=== PATIENT | female | born 1955 | race Caucasian/White ===

== ENCOUNTER → 2020-03-23 14:44 | Outpatient (CLI) | payer OTHER, SELFPAY ==
--- NOTE | ~2020-03-23 | MM_ITS ---
EXAMINATION: MM screening ivelisse BI w johana HISTORY: Screening mammogram TECHNIQUE: Craniocaudal and mediolateral oblique 3-D tomosynthesis images were obtained and synthetic 2-D images were generated. CAD analysis was submitted and interpreted. COMPARISON: Comparison to multiple prior studies sequentially, with oldest reviewed study dated 06/06. BREAST PARENCHYMAL COMPOSITION: There are scattered areas of fibroglandular density. FINDINGS: The right breast is stable without evidence for malignancy. There is a developing focal asy mmetry laterally in the left breast on CC view. IMPRESSION: 1. Developing left breast asymmetry. 2. Additional mammographic views and possible breast ultrasound are recommended. BI-RADS Category 0: Incomplete: Needs additional imaging evaluation. Reviewed, dictated and finalized at location A. IMPRESSION: 1. Developing left breast asymmetry. 2. Additional mammographic views and possible breast ultrasound are recommended . BI-RADS Category 0: Incomplete: Needs additional imaging evaluation.
== END ==
PROVIDERS: PCP Family Medicine; Visit Provider Family Medicine
DX: Z12.31 Encounter for screening mammogram for malignant neoplasm of breast (principal); R92.8 Other abnormal and inconclusive findings on diagnostic imaging of breast
CPT/HCPCS: 77063; 77067

== ENCOUNTER → 2020-04-04 09:28 | Outpatient (CLI) | payer OTHER, SELFPAY ==
--- NOTE | ~2020-04-04 | MMUS_ITS ---
EXAMINATION: MM diagnostic mammo unilat LT, US breast LT limited HISTORY: Left breast asymmetry on screening mammogram TECHNIQUE: Additional 3-D tomosynthesis images of the left breast were performed and synthetic 2-D im ages were generated. CAD analysis was submitted and interpreted. High resolution limited left breast ultrasound was performed. COMPARISON: 03/23/2020, 11/25/2018, 08/20/2017, 06/17/2016 FINDINGS: MAMMOGRAPHIC FINDINGS: Asymmetry in the posterior third of the outer left breast seen on recent screening mammogram diminish es with spot compression. No definite persistent mass, calcification, or architectural distortion are identified. There are benign left breast calcifications. ULTRASOUND: There is a 5 mm x 3 mm oval, circumscribed, parallel, hypoechoic mass with no posterior features or i nternal vascularity at the 2:00 location 8 cm from the nipple with apparent central echogenicity. IMPRESSION: 1. Left breast mass with imaging features suggestive of an intramammary lymph node. 2. Recommend 6 month follow-up left diagnostic mammogram and ultrasound. BI-RADS category 3, probably benign findings. Reviewed, dictated and finalized at location A. IMPRESSION: 1. Left breast mass with imaging features suggestive of an intramammary lymph n ode. 2. Recommend 6 month follow-up left diagnostic mammogram and ultrasound. BI-RADS category 3, probably benign findings.
== END ==
PROVIDERS: PCP Family Medicine; Visit Provider Family Medicine
DX: R92.8 Other abnormal and inconclusive findings on diagnostic imaging of breast (principal)
CPT/HCPCS: 76642; 77065

== ENCOUNTER → 2020-05-16 11:05 | Outpatient (CLI) | payer OTHER, SELFPAY ==
--- NOTE | ~2020-05-16 | US_ITS ---
EXAMINATION: US pelvic complete w TV EXAM DATE: 05/16/2020 11:33 INDICATION: Pain in pelvis. TECHNIQUE: Pelvic transabdominal and transvaginal sonogram was performed. There are multiple graysca le and Doppler images available for interpretation. There is no prior study for comparison. FINDINGS: Uterus measures 6.2 x 2.6 x 3.7 cm, is retroverted and morphologically normal. Endometria l stripe measures 2 mm, within normal limits. There is no free pelvic fluid. Right adnexa: The ovary measures 1.8 x 1.1 x 1.5 cm and is morphologically normal. Ovarian vascular f low confirmed. Left adnexa: The ovary is not identified. There is no adnexal mass. IMPRESSION: 1. Unremarkable pelvic ultrasound exam. Reviewed, dictated and finalized at location A.
== END ==
PROVIDERS: PCP Family Medicine; Visit Provider Family Medicine
DX: R10.2 Pelvic and perineal pain (principal)
CPT/HCPCS: 76830; 76856

== ENCOUNTER → 2020-05-26 13:41 | Outpatient (CLI) | payer OTHER, SELFPAY ==
--- NOTE | ~2020-05-26 | CT_ITS ---
EXAMINATION: CT abdomen pelvis w con INDICATION: Abdominal pain TECHNIQUE: Computed tomographic images of the abdomen and pelvis were obtained after the administrati on of 100 cc of Omnipaque 350 intravenous contrast. The dose-length product (DLP) was 459.62 mGy-cm. Automated exposure control and iterative reconstruction technique were employed. COMPARISON: None available FINDINGS: The heart size is normal. A 2 mm nodule of the right middle lobe likely reflects old granul omatous disease. Cysts of the liver measure up to 2.1 cm in the left hepatic lobe. The spleen, pancre as, gallbladder, and adrenal glands are normal. The kidneys are unremarkable. No pathologically enlar ged abdominal or pelvic lymph nodes are identified. There is no free intraperitoneal gas or evidence of bowel obstruction. A large volume of colonic stool is present. The appendix is normal. A small fat -containing umbilical hernia is noted. IMPRESSION: 1. Constipation. Reviewed, dictated and finalized at location A. IMPRESSION: 1. Constipation.
[2020-05-26 14:08] LABS: Estimated Glomerular Filt Rate > 60
== END ==
PROVIDERS: PCP Family Medicine; Visit Provider Family Medicine
DX: R10.9 Unspecified abdominal pain (principal); K59.00 Constipation, unspecified
CPT/HCPCS: 74177; Q9967

== ENCOUNTER → 2020-10-17 09:16 | Outpatient (CLI) | payer OTHER, SELFPAY ==
--- NOTE | ~2020-10-17 | MMUS_ITS ---
EXAMINATION: MM diagnostic ivelisse LT w johana, US breast LT limited HISTORY: Follow-up left breast mass TECHNIQUE: Additional 3-D tomosynthesis images of the left breast were performed and synthetic 2-D im ages were generated. CAD analysis was submitted and interpreted. High resolution left breast ultrasou nd was performed. COMPARISON: Comparison to multiple prior studies sequentially, with oldest reviewed study dated 06/17. BREAST PARENCHYMAL COMPOSITION: Breast composed of scattered areas of fibroglandular density. FINDINGS: MAMMOGRAPHIC FINDINGS: There are no suspicious masses, calcifications or architectural distortion in the left breast to sugg est malignancy. ULTRASOUND: Limited left breast ultrasound: At 2:00, 8 cm from the nipple, there is a 5 mm cyst which is stable. No suspicious masses to suggest malignancy. No internal vascularity or posterior features. IMPRESSION: 1. Stable benign-appearing minimally complicated 5 mm left breast cysts. No evidence for malignancy i n the left breast. 2. Routine yearly screening mammogram and regular clinical breast examination are recommended. BI-RADS Category 2: Benign finding(s). Reviewed, dictated and finalized at location A. [employer] IMPRESSION: 1. Stable benign-appearing minimally complicated 5 mm left breast cysts. No [place] dence for malignancy in the left breast. 2. Routine yearly screening mammogram and regular clinical breast examination a re recommended. BI-RADS Category 2: Benign finding(s).
== END ==
PROVIDERS: PCP Family Medicine; Visit Provider Family Medicine
DX: R92.8 Other abnormal and inconclusive findings on diagnostic imaging of breast (principal)
CPT/HCPCS: 76642; 77061; 77065; G0279

== ENCOUNTER → 2021-01-19 11:10 | Outpatient (CLI) | payer OTHER, SELFPAY ==
--- NOTE | ~2021-01-19 | DEXA_ITS ---
Bone Density Report Name: Mandi Key Age: 65 Sex: Female Ethnicity: White Date of : 1955 Indication: osteopenia; postmenopausal Referring Provider: VANGIE, IGNACIA Christensen Study: Bone densitometry was performed. Exam Date: January 19, 2021 Accession number: [id number] Bone Density: Region BMD T-score Z-score Classification AP Spine (L1-L4) 0.825 -2.0 -0.4 Osteopenia Femoral Neck (Left) 0.581 -2.4 -1.0 Osteopenia Total Hip (Left) 0.715 -1.9 -0.7 Osteopenia Femoral Neck (Right) 0.622 -2.0 -0.6 Osteopenia Total Hip (Right) 0.719 -1.8 -0.7 Osteopenia Total Hip Mean 0.717 -1.9 -0.7 Osteopenia World Health Organization criteria for BMD impression classify patients as: Normal (T-score at or above -1.0), Osteopenia (T-score between -1.0 and -2.5), or Osteoporosis (T-score at or below -2.5). 10-year Fracture Risk(1): Major Osteoporotic Fracture 12% Hip Fracture 2.1% Reported Risk Factors: [place] (), Neck BMD=0.581, BMI=26.5 (1) FRAX(R) Version 3.08. Fracture probability calculated for an untreated patient. Fracture probability may be lower if the patient has received treatment. Previous Exams: Region Exam Age BMD T-score BMD Change BMD Change Date g/cm2 vs Baseline vs Previous AP Spine(L1-L4) 01/19/2021 65 0.825 -2.0 -0.044* 0.032* 11/25/2018 63 0.793 -2.3 -0.076* -0.076* 04/08/2016 60 0.869 -1.6 Total Hip(Left) 01/19/2021 65 0.715 -1.9 -0.040* -0.014 11/25/2018 63 0.729 -1.7 -0.027 -0.027 04/08/2016 60 0.755 -1.5 Total Hip(Right) 01/19/2021 65 0.719 -1.8 -0.072* -0.025 11/25/2018 63 0.745 -1.6 -0.047* -0.047* 04/08/2016 60 0.791 -1.2 *Denotes significance at 95% confidence level, LSC for AP Spine = 0.022 g/cm2, LSC for Total Hip = 0.027 g/cm2 Clinical Information Provided by Patient: Has used the following medications: Vitamin D, Calcium Patient maximum height was 62 Menopause Age: 54 Drinks caffeinated beverages Onset of menses at age 15 Number of children 2 Impression: The patient has low bone mass, based on the Left Femoral Neck T-score. The patient has an estimated ten-year risk of hip fracture of 2.1% and an estimated ten-year risk of major fracture of 12%, based on the WHO FRAX algorithm. No significant bone loss was observed. Discussion: BONE DENSITY IS LOW AT ONE OR MORE SKELETAL
== END ==
PROVIDERS: PCP Family Medicine; Visit Provider Family Medicine
DX: Z78.0 Asymptomatic menopausal state (principal); M85.89 Other specified disorders of bone density and structure, multiple sites
CPT/HCPCS: 77080

== ENCOUNTER 2021-03-04 15:29 | Emergency (ER) | payer OTHER, SELFPAY ==
[2021-03-04 15:35] VITALS: BP 157/68; PULSE 80; RESP 16; TEMP 37.3; O2SAT 99
--- NOTE | 2021-03-04 15:42 | ED.URI ---
HPI - URI/Sore Throat General Chief Complaint: Upper Respiratory Infection Stated Complaint: Congestion, Coughing, Sore throat Time Seen by Provider: 03/04/21 15:42 Source: patient and RN notes reviewed History of Present Illness HPI Narrative: Patient is a 65-year-old female who presents the urgent care with complaints of congestion, sore throat and cough. Patient states it started last Friday and she has been taking Mucinex, Tylenol and Benadryl with some intermittent relief. Patient states that now she feels like she has a nodule in her throat . Denies any known fevers, nausea, vomiting. Denies of any known contact to Covid, influenza or strep. Patient states that she has had 3 sinus surgeries in the past and she is typically treated for her sinusitis . No other acute complaints. No acute distress noted. Patient aware of the plan of care. Some parts of this dictation were generated by voice recognition software and may contain typographical and/or grammatical inaccuracies. Related Data Home Medications Medication Instructions Recorded Confirmed aspirin [Adult Aspirin EC Low 81 mg PO DAILY 03/04/21 03/04/21 Strength] azelastine 2 spray INTRANASAL DAILY 03/04/21 03/04/21 bumetanide 2 mg PO DAILY 03/04/21 03/04/21 calcium-vitamin D3-vitamin K 1 tablet PO DAILY 03/04/21 03/04/21 [Viactiv] clonazepam 0.5 mg PO TID PRN 03/04/21 03/04/21 cyclosporine [Restasis] 1 drp EACH EYE Q12H 03/04/21 03/04/21 diazepam 2 mg PO TID PRN 03/04/21 03/04/21 fish [id number]-[id number]-1-vit C-vit E 2.5 g PO DAILY 03/04/21 03/04/21 fluticasone propionate 2 spray INTRANASAL DAILY 03/04/21 03/04/21 hydroxypropyl cellulose [Lacrisert] 5 mg OPHTHALMIC (EYE) BID 03/04/21 03/04/21 levocetirizine 5 mg PO DAILY 03/04/21 03/04/21 montelukast 10 mg PO DAILY 03/04/21 03/04/21 omeprazole 20 mg PO DAILY 03/04/21 03/04/21 rosuvastatin 10 mg PO HS 03/04/21 03/04/21 thyroid (pork) [Daphne Thyroid] 15 mg PO DAILY 03/04/21 03/04/21 thyroid (pork) [Daphne Thyroid] 30 mg PO DAILY 03/04/21 03/04/21 triamcinolone acetonide 1 applic MUCOUS MEMBRANE BID 03/04/21 03/04/21 Allergies Allergy/AdvReac Type Severity Reaction Status Date / Time lifitegrast Allergy Unknown Rash Verified 03/04/21 15:44 moxifloxacin Allergy Unknown Nausea Verified 03/04/21 15:44 amitriptyline AdvReac Unknown Other Verified 03/04/21 15:44 atorvastatin AdvReac Unknown Muscle Verified 03/04/21 15:44 Spasms cefdinir AdvReac Unknown Other Verified 03/04/21 15:44 celecoxib AdvReac Unknown Diarrhea Verified 03/04/21 15:44 duloxetine AdvReac Unknown Other Verified 03/04/21 15:44 erythromycin base AdvReac Unknown Nausea Verified 03/04/21 15:44 levofloxacin AdvReac Unknown Diarrhea Verified 03/04/21 15:44 pravastatin AdvReac Unknown Muscle Verified 03/04/21 15:44 Spasms tetracycline AdvReac Unknown Nausea Verified 03/04/21 15:44 valdecoxib AdvReac Unknown Diarrhea Verified 03/04/21 15:44 Review of Systems Review of Systems: Narrative: CONSTITUTIONAL: Denies fever, chills, or sweats. EYES: Denies visual changes, redness, or discharge. ENT: Reports of congestion, sore throat CARDIOVASCULAR: Denies chest pain, palpitations, or edema. RESPIRATORY: Reports of cough without dyspnea GASTROINTESTINAL: Denies abdominal pain, nausea, vomiting, or diarrhea. GENITOURINARY: Denies dysuria or hematuria. SKIN: Denies rash or itching. MUSCULOSKELETAL: Denies back pain, joint pain, or myalgia. NEUROLOGIC: Denies headache, numbness, or weakness. All other systems reviewed are negative, except as documented in HPI. PMFSH Comments At the time of my signature, I reviewed and agree with the nursing past medical, surgical, social, and family history. There is no relevant family history pertinent to the patient complaint. Exam Narrative: Exam Narrative: GENERAL: This is a well-nourished, well-developed patient, in no apparent distress. HEAD: normocephalic, atraumatic. EYES: PERRL. Sclera clear/white. Vision is grossl
== END 2021-03-04 16:03 | disposition home or self-care (01) ==
PROVIDERS: Emergency Provider Nurse Practitioner Family; PCP Family Medicine
DX: J32.9 Chronic sinusitis, unspecified (principal); J02.9 Acute pharyngitis, unspecified; E78.00 Pure hypercholesterolemia, unspecified; J45.909 Unspecified asthma, uncomplicated; K21.9 Gastro-esophageal reflux disease without esophagitis; M81.0 Age-related osteoporosis without current pathological fracture; E03.9 Hypothyroidism, unspecified; F41.9 Anxiety disorder, unspecified
CPT/HCPCS: 87081; 87880; 99213; G0463

== ENCOUNTER 2021-03-22 11:31 | Emergency (ER) | payer OTHER, SELFPAY ==
[2021-03-22 11:40] VITALS: BP 141/82; PULSE 76; RESP 16; TEMP 37.1; O2SAT 98
[2021-03-22 11:50] VITALS: BP 141/82; PULSE 76; RESP 16; TEMP 37.1; O2SAT 98
--- NOTE | 2021-03-22 12:24 | ED.URI ---
HPI - URI/Sore Throat General Chief Complaint: Upper Respiratory Infection Stated Complaint: Possible sinus infection Time Seen by Provider: 03/22/21 12:06 Source: patient and RN notes reviewed Mode of arrival: ambulatory Limitations: no limitations History of Present Illness HPI Narrative: Patient presents today complaining of copious postnasal drainage, productive cough with white and clear sputum, nasal congestion with clear nasal drainage, and bilateral eye drainage and matting. Patient was seen at [facility] on 03/04/2021, diagnosed with sinusitis and given a prescription for Augmentin. States she did finish this prescription and reports her symptoms have significantly improved, but states her sinuses are not finished draining . Patient does have history of chronic sinusitis and 3 sinus surgeries. Reports her eye drainage started 4 days ago. Reports she has plugs in her tear ducts due to chronic dry eye. States she has used 3 bottles of Robitussin due to her cough and she is also using Benadryl. She does not currently see an ENT and states her PCP usually handles her sinus issues, but she has not been in contact with her PCP. MD elicited complaint: cough and nasal congestion Related Data Home Medications Medication Instructions Recorded Confirmed aspirin [Adult Aspirin EC Low 81 mg PO DAILY 03/04/21 03/22/21 Strength] azelastine 2 spray INTRANASAL DAILY 03/04/21 03/22/21 bumetanide 2 mg PO DAILY 03/04/21 03/22/21 calcium-vitamin D3-vitamin K 1 tablet PO DAILY 03/04/21 03/22/21 [Viactiv] clonazepam 0.5 mg PO TID PRN 03/04/21 03/22/21 cyclosporine [Restasis] 1 drp EACH EYE Q12H 03/04/21 03/22/21 diazepam 2 mg PO TID PRN 03/04/21 03/22/21 fish [id number]-7-vit C-vit E 2.5 g PO DAILY 03/04/21 03/22/21 fluticasone propionate 2 spray INTRANASAL DAILY 03/04/21 03/22/21 hydroxypropyl cellulose [Lacrisert] 5 mg OPHTHALMIC (EYE) BID 03/04/21 03/22/21 levocetirizine 5 mg PO DAILY 03/04/21 03/22/21 montelukast 10 mg PO DAILY 03/04/21 03/22/21 omeprazole 20 mg PO DAILY 03/04/21 03/22/21 penciclovir [Denavir] 1 applic TOPICAL Q2H 03/04/21 03/22/21 rosuvastatin 10 mg PO HS 03/04/21 03/22/21 thyroid (pork) [[place]anto Thyroid] 15 mg PO DAILY 03/04/21 03/22/21 thyroid (pork) [[place]anto Thyroid] 30 mg PO DAILY 03/04/21 03/22/21 triamcinolone acetonide 1 applic MUCOUS MEMBRANE BID 03/04/21 03/22/21 Allergies Allergy/AdvReac Type Severity Reaction Status Date / Time lifitegrast Allergy Unknown Rash Verified 03/04/21 15:44 moxifloxacin Allergy Unknown Nausea Verified 03/04/21 15:44 amitriptyline AdvReac Unknown Other Verified 03/04/21 15:44 atorvastatin AdvReac Unknown Muscle Verified 03/04/21 15:44 Spasms cefdinir AdvReac Unknown Other Verified 03/04/21 15:44 celecoxib AdvReac Unknown Diarrhea Verified 03/04/21 15:44 duloxetine AdvReac Unknown Other Verified 03/04/21 15:44 erythromycin base AdvReac Unknown Nausea Verified 03/04/21 15:44 levofloxacin AdvReac Unknown Diarrhea Verified 03/04/21 15:44 pravastatin AdvReac Unknown Muscle Verified 03/04/21 15:44 Spasms tetracycline AdvReac Unknown Nausea Verified 03/04/21 15:44 valdecoxib AdvReac Unknown Diarrhea Verified 03/04/21 15:44 Review of Systems Review of Systems: Narrative: CONSTITUTIONAL: Denies body aches, fever, chills, or sweats. EYES: Denies visual changes, redness, or discharge.+ Eye drainage and matting ENT: Denies rhinorrhea, sore throat, or otalgia. + Congestion, postnasal drip CARDIOVASCULAR: Denies chest pain, palpitations, or edema. RESPIRATORY: Denies dyspnea. + Cough GASTROINTESTINAL: Denies abdominal pain, nausea, vomiting, or diarrhea. GENITOURINARY: Denies dysuria or hematuria. SKIN: Denies rash, itching, or wounds. MUSCULOSKELETAL: Denies back pain, joint pain, or myalgia. NEUROLOGIC: Denies headache, numbness, tingling, or weakness. PSYCH: Denies depression or anxiety. PMFSH Past Medical History Medical History (Updated 03/22/21 @ 13:22 by Allie Perry
== END 2021-03-22 12:33 | disposition home or self-care (01) ==
PROVIDERS: Emergency Provider Nurse Practitioner
DX: J40 Bronchitis, not specified as acute or chronic (principal); J06.9 Acute upper respiratory infection, unspecified; H10.33 Unspecified acute conjunctivitis, bilateral; E78.00 Pure hypercholesterolemia, unspecified; F41.9 Anxiety disorder, unspecified
CPT/HCPCS: 99213; G0463

== ENCOUNTER 2021-07-31 18:12 | Emergency (ER) | payer OTHER, SELFPAY ==
[2021-07-31 18:20] VITALS: BP 149/72; PULSE 74; RESP 16; TEMP 37; O2SAT 99
--- NOTE | 2021-07-31 18:39 | ED.EYEPROB ---
HPI - Eye Problem General Chief complaint: Eye Problems Stated complaint: left eye injury Time Seen by Provider: 07/31/21 18:40 Source: patient and RN notes reviewed Mode of arrival: ambulatory Limitations: no limitations History of Present Illness HPI Narrative: Mandi is a 66-year-old female patient [facility] Patient states that about an hour ago she was brushing her hair of the brush hit her glasses and part of the glasses scraped her left eye. Patient denies any changes in vision. 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 MD chief complaint: eye pain Related Data Home Medications Medication Instructions Recorded Confirmed aspirin [Adult Aspirin EC Low 81 mg PO DAILY 03/04/21 03/22/21 Strength] azelastine 2 spray INTRANASAL DAILY 03/04/21 03/22/21 clonazepam 0.5 mg PO TID PRN 03/04/21 03/22/21 diazepam 2 mg PO TID PRN 03/04/21 03/22/21 fish lkl-[id number]-7-vit C-vit E 2.5 g PO DAILY 03/04/21 03/22/21 fluticasone propionate 2 spray INTRANASAL DAILY 03/04/21 03/22/21 levocetirizine 5 mg PO DAILY 03/04/21 03/22/21 montelukast 10 mg PO DAILY 03/04/21 03/22/21 omeprazole 20 mg PO DAILY 03/04/21 03/22/21 penciclovir [Denavir] 1 applic TOPICAL Q2H 03/04/21 03/22/21 rosuvastatin 10 mg PO HS 03/04/21 03/22/21 thyroid (pork) [Haslet Thyroid] 15 mg PO DAILY 03/04/21 03/22/21 thyroid (pork) [Haslet Thyroid] 30 mg PO DAILY 03/04/21 03/22/21 Lactobacillus acidophilus 10,000 mmu cells PO DAILY 07/31/21 07/31/21 [Probiotic] [place] MonoPure Curcumin EC 07/31/21 bumetanide 2 mg PO DAILY 07/31/21 07/31/21 calcium-vitamin D3-vitamin K tablet PO 07/31/21 [Viactiv] coenzyme [id number] [CoQ10 SG cap PO 07/31/21 100] cyclosporine [Restasis] drp 07/31/21 cyclosporine [Restasis] drp 07/31/21 diclofenac sodium [Voltaren] 2 g TOPICAL QID 07/31/21 07/31/21 estradiol [Estrace] VAGINAL 07/31/21 hydroxypropyl cellulose [Lacrisert] mg OPHTHALMIC (EYE) 07/31/21 levocetirizine 5 mg PO DAILY 07/31/21 07/31/21 penciclovir [Denavir] applic TOPICAL 07/31/21 rosuvastatin [Crestor] 10 mg PO DAILY 07/31/21 07/31/21 triamcinolone acetonide 1 applic DENTAL BID 07/31/21 07/31/21 white petrolatum-mineral oil 1 applic EACH EYE DAILY 07/31/21 07/31/21 [Artificial Eye Lubricant] white petrolatum-mineral oil 07/31/21 [Systane Nighttime] Allergies Allergy/AdvReac Type Severity Reaction Status Date / Time lifitegrast Allergy Unknown Rash Verified 03/04/21 15:44 moxifloxacin Allergy Unknown Nausea Verified 03/04/21 15:44 amitriptyline AdvReac Unknown Other Verified 07/31/21 18:32 atorvastatin AdvReac Unknown Muscle Verified 03/04/21 15:44 Spasms cefdinir AdvReac Unknown Other Verified 07/31/21 18:32 celecoxib AdvReac Unknown Diarrhea Verified 07/31/21 18:32 duloxetine AdvReac Unknown Other Verified 03/04/21 15:44 erythromycin base AdvReac Unknown Nausea Verified 07/31/21 18:32 levofloxacin AdvReac Unknown Diarrhea Verified 07/31/21 18:32 pravastatin AdvReac Unknown Muscle Verified 03/04/21 15:44 Spasms tetracycline AdvReac Unknown Nausea Verified 07/31/21 18:32 valdecoxib AdvReac Unknown Diarrhea Verified 03/04/21 15:44 Review of Systems Review of Systems: CONSTITUTIONAL: Denies body aches, fever, chills, or sweats. EYES: Denies visual changes, redness, or discharge;+ Left eye pain ENT: Denies rhinorrhea, congestion, sore throat, or otalgia. CARDIOVASCULAR: Denies chest pain, palpitations, or edema. RESPIRATORY: Denies cough or dyspnea. GASTROINTESTINAL: Denies abdominal pain, nausea, vomiting, or diarrhea. GENITOURINARY: Denies dysuria or hematuria. SKIN: Denies rash, itching, or wounds. MUSCULOSKELETAL: Denies back pain, joint pain, or myalgia. NEUROLOGIC: Denies headache, numbness, tingling, or weakness. PSYCH: Denies depression or anxiety. All systems reviewed & are unremarkable except as noted in HPI and below PMFSH Past Medical History
== END 2021-07-31 19:08 | disposition home or self-care (01) ==
PROVIDERS: Emergency Provider Nurse Practitioner Family
DX: S05.02XA Injury of conjunctiva and corneal abrasion without foreign body, left eye, initial encounter (principal); W22.8XXA Striking against or struck by other objects, initial encounter; E78.00 Pure hypercholesterolemia, unspecified; F41.9 Anxiety disorder, unspecified; Z79.82 Long term (current) use of aspirin
CPT/HCPCS: 99213; A9270; G0463

== ENCOUNTER 2022-10-10 15:26 | Emergency (ER) | payer MEDICARE, SELFPAY ==
--- NOTE | 2022-10-10 15:27 | ED.BACK ---
HPI - Back Pain/Injury General Chief Complaint: Back Pain/Injury Stated Complaint: lower back pain Time Seen by Provider: 10/10/22 15:27 Source: patient and RN notes reviewed History of Present Illness HPI Narrative: patient is 7-year-old female presents to urgent care with complaints of low back pain. Patient states she has chronic low back pain that exacerbates every now and then. Patient states she was not doing any strenuous activity and denies any recent heavy lifting/ pushing / pulling. States that she stood up from the couch on Friday and felt a pull in her low back. Patient has been taking Tylenol, her prescription for Valium, ice and heat without much improvement. No other acute complaints. No acute distress noted. Patient aware of the plan of care. Some parts of this dictation were generated by voice recognition software and may contain typographical and/or grammatical inaccuracies. Related Data Home Medications Medication Instructions Recorded Confirmed fish rhm-vovdd2-waf C-vit E 2,000 2.5 g PO DAILY 03/04/21 10/10/22 mg-650 mg-12 mg/2.5 g emulsion packt [place] MonoPure Curcumin EC 07/31/21 calcium-vitamin D3-vitamin K 500 1 tablet PO DAILY 07/31/21 10/10/22 mg-500 unit-40 mcg chewable tablet coenzyme [id number] E 100 mg-100 1 cap PO DAILY 07/31/21 10/10/22 unit capsule white petrolatum-mineral oil 94 07/31/21 %-3 % eye ointment (Systane Nighttime) azelastine 137 mcg (0.1 %) nasal See Rx Instructions .Route .COMPLEX 10/10/22 10/10/22 spray aerosol bumetanide 2 mg tablet 2 mg PO DAILY 10/10/22 10/10/22 clonazepam 0.5 mg tablet 0.5 mg PO DAILY 10/10/22 10/10/22 cyclosporine 0.05 % eye drops in a See Rx Instructions .Route .COMPLEX 10/10/22 10/10/22 dropperette (Restasis) diazepam 2 mg tablet 2 mg PO DAILY 10/10/22 10/10/22 fluticasone propionate 50 See Rx Instructions .Route .COMPLEX 10/10/22 10/10/22 mcg/actuation nasal spray,suspension hydroxypropyl cellulose 5 mg eye See Rx Instructions .Route .COMPLEX 10/10/22 10/10/22 inserts (Lacrisert) levocetirizine 5 mg tablet 5 mg PO DAILY 10/10/22 10/10/22 liothyronine 5 mcg tablet 5 mcg PO DAILY 10/10/22 10/10/22 montelukast 10 mg tablet 10 mg PO DAILY 10/10/22 10/10/22 rosuvastatin 10 mg tablet 10 mg PO DAILY 10/10/22 10/10/22 Allergies Allergy/AdvReac Type Severity Reaction Status Date / Time lifitegrast Allergy Unknown Rash Verified 10/10/22 15:40 moxifloxacin Allergy Unknown Nausea Verified 10/10/22 15:40 amitriptyline AdvReac Unknown Other Verified 10/10/22 15:40 atorvastatin AdvReac Unknown Muscle Verified 10/10/22 15:40 Spasms cefdinir AdvReac Unknown Other Verified 10/10/22 15:40 celecoxib AdvReac Unknown Diarrhea Verified 10/10/22 15:40 duloxetine AdvReac Unknown Other Verified 10/10/22 15:40 erythromycin base AdvReac Unknown Nausea Verified 10/10/22 15:40 levofloxacin AdvReac Unknown Diarrhea Verified 10/10/22 15:40 pravastatin AdvReac Unknown Muscle Verified 10/10/22 15:40 Spasms tetracycline AdvReac Unknown Nausea Verified 07/31/21 18:32 valdecoxib AdvReac Unknown Diarrhea Verified 03/04/21 15:44 Review of Systems Review of Systems: CONSTITUTIONAL: Denies fever, chills, or sweats. EYES: Denies visual changes, redness, or discharge. ENT: Denies rhinorrhea, congestion, sore throat, or otalgia. CARDIOVASCULAR: Denies chest pain, palpitations, or edema. RESPIRATORY: Denies cough or dyspnea. GASTROINTESTINAL: Denies abdominal pain, nausea, vomiting, or diarrhea. GENITOURINARY: Denies dysuria or hematuria. SKIN: Denies rash or itching. MUSCULOSKELETAL: Reports of low back pain NEUROLOGIC: Denies headache, numbness, or weakness. All other systems reviewed are negative, except as documented in HPI. [facility] Past Medical History Medical History Anxiety Chronic sinusitis Dry eye High cholesterol Social History Social History (Reviewed 07/31/21 @ 1
[2022-10-10 15:35] VITALS: BP 138/56; PULSE 67; RESP 18; TEMP 36.7; O2SAT 99
== END 2022-10-10 16:10 | disposition home or self-care (01) ==
PROVIDERS: Emergency Provider Nurse Practitioner Family; PCP Family Medicine
DX: S39.012A Strain of muscle, fascia and tendon of lower back, initial encounter (principal); X58.XXXA Exposure to other specified factors, initial encounter; E78.00 Pure hypercholesterolemia, unspecified; F41.9 Anxiety disorder, unspecified
CPT/HCPCS: 99213; G0463

== ENCOUNTER → 2022-10-18 13:28 | Outpatient (CLI) | payer MEDICARE, SELFPAY ==
--- NOTE | ~2022-10-18 | MM_ITS ---
EXAMINATION: MM screening ivelisse BI w johana HISTORY: Screening TECHNIQUE: Craniocaudal and mediolateral oblique 3-D tomosynthesis images were obtained and synthetic 2-D images were generated. CAD analysis was submitted and interpreted. COMPARISON: Comparison to multiple prior studies sequentially, with oldest reviewed study dated 07/24. BREAST PARENCHYMAL COMPOSITION: There are scattered areas of fibroglandular density. FINDINGS: There is no evidence of suspicious mass, calcification, or architectural distortion to sugg est malignancy in either breast. There has been no suspicious interval change. IMPRESSION: 1. No mammographic evidence of malignancy. 2. Recommend routine screening mammography in one year. BI-RADS Category 1: Negative Reviewed, dictated and finalized at location A. [facility]
== END ==
PROVIDERS: PCP Family Medicine; Visit Provider Family Medicine
DX: Z12.31 Encounter for screening mammogram for malignant neoplasm of breast (principal)
CPT/HCPCS: 77063; 77067

== ENCOUNTER 2023-03-10 14:21 | Outpatient (CLI) | payer MEDICARE, SELFPAY ==
[2023-03-10 14:37] LABS: Basophils Percent Auto 0.3 % (0.2-1.2); Eosinophils Absolute Auto 0.3 K/mm3 (0-0.3); Eosinophils Percent Auto 3.5 % (0-4.4); Hematocrit 46.7 % (37.0-47.0); Immature Granulocyte Absolute 0.03 K/mm3 (0.00-0.031); Immature Granulocyte Percent A 0.3 % (0-0.5); Lymphocytes Absolute Auto 1.68 K/mm3 (0.9-3.2); Mean Corpuscular HGB Conc 32.1 g/dl (32-36); Mean Corpuscular Hemoglobin 29.1 pg (26-34); Mean Corpuscular Volume 90.7 fl (80-100); Mean Platelet Volume 11.3 fl (7.4-10.4); Monocytes Absolute Auto 0.8 K/mm3 (0.1-0.6); Monocytes Percent Auto 8.8 % (2.6-8.5); Neutrophils Absolute Auto 6.5 K/mm3 (1.3-6.7); Neutrophils Percent Auto 69.1 % (45.5-73.1); Platelet Count Result 244 k/mm3 (150-375); Red Blood Count 5.15 M/mm3 (4.2-5.4); Red Cell Distribution Width 14.3 % (11.5-14.5); White Blood Count 9.4 K/mm3 (4.5-10.0)
[2023-03-10 16:08] LABS: Iron 71 ug/dL (37-170)
[2023-03-10 16:10] LABS: Alanine Aminotransferase 33 U/L (6-35); Albumin Level 4.8 g/dL (3.5-5.1); Alkaline Phosphatase 101 U/L (38-126); Anion Gap 7 mmol/L (8-16); Aspartate Amino Transferase 39 U/L (14-36); Bilirubin,Total 0.5 mg/dL (0.2-1.3); Blood Urea Nitrogen 18 mg/dL (7-17); Calcium 9.5 mg/dL (8.4-10.2); Carbon Dioxide 35 mmol/L (22-30); Chloride 97 mmol/L (98-107); Estimated Glomerular Filt Rate > 60; Glucose 91 mg/dL (65-110); Potassium 3.6 mmol/L (3.4-5.0); Sodium 139 mmol/L (137-145)
[2023-03-10 16:22] LABS: Percent Iron Saturation 16 % (20-50)
== END 2023-03-10 14:22 | disposition home or self-care (01) ==
PROVIDERS: PCP Family Medicine; Visit Provider Internal Medicine Hematology & Oncology
DX: D64.9 Anemia, unspecified (principal)
CPT/HCPCS: 36415; 80053; 82607; 82728; 82746; 83540; 83550; 85025

== ENCOUNTER 2024-10-22 09:27 | Emergency (ER) | payer MEDICARE, SELFPAY ==
[2024-10-22 09:33] VITALS: BP 133/67; PULSE 83; RESP 16; TEMP 36.3; O2SAT 100
--- OUTSIDE RECORDS SUMMARY | 2024-10-22 09:44 | XMS_ITS | Clinical Summary ---
[facility] Address [address] [place] [address] Care Team Providers Care Commonwealth Attorney Name Role Phone Unavailable Primary Care Provider Unavailabl e Allergies Active Allergy Reactions Criticality Noted Date Comments Amitriptyline Hypertension Medium 03/10/2023 Ferrous Sulfate Swelling Low 03/10/2023 Medications estradioL (ESTRACE) 0.01% (0.1 mg/g) vaginal cream 0.1 mg. Active fluticasone propionate (FLONASE) 50 mcg/spray [place], Suspension nasal inhaler Administer 2 Sprays in each nostril. Active levocetirizine dihydrochloride (LEVOCETIRIZINE ORAL) Take by mouth. Activ e montelukast (SINGULAIR) 10 mg tablet Take 10 mg by mouth daily at bedtime. Active hydroxypropyl cellulose (LACRISERT) 5 mg inserts 5 mg see administration instructions. Active penciclovir (DENAVIR) 1 % Cream Apply 1 Each to affected area every 2 hours. Active diazePAM (VALIUM) 2 mg tablet Take 2 mg by mouth every 6 hours as needed for Anxiety. Active clonazePAM (KlonoPIN) 0.5 mg Tablet Take 0.5 mg by mouth 2 times daily. Active cycloSPORINE (RESTASIS) 0.05 % emulsion 1 Drop 2 times daily. Active Active Problems No known active problems Family History Medical History Relation Name Comments No Known Problems Brother 1 Relation Name Status Comments Brother 1 Alive Brother 2 Alive Daughter Alive Father Alive Mother Sister 1 Alive Sister 2 Alive Son Alive Social History Tobacco Use Types Packs/Day Years Used Date Smoking Tobacco: Never Alcohol Use Standard Drinks/Week Comments Yes 0 (1 standard drink = 0.6 oz pur e alcohol) rare Comments Unknown Sex and Gender Information Value Date Recorded Sex Assigned at Not on file Legal Sex Female 8:13 AM CDT Gender Identity Not on file Sexual Orientation Not on file Last Filed Vital Signs Vital Sign Reading Time Taken Comments Blood Pressure 135/60 03/10/2023 1:28 PM CDT Pulse 73 03/10/2023 1:28 PM CDT Temperature 36.4 ??C (97.6 ??F) 03/10/2023 1:28 PM CD T Respiratory Rate 10 03/10/2023 1:28 PM CDT Oxygen Saturation 100% 03/10/2023 1:28 PM CDT Inhaled Oxygen Concentration - - Weight 66.2 kg (146 lb) 03/10/2023 1:28 PM CDT Height 154.9 cm (5' 1 ) 03/10/2023 1:28 PM CDT Body Mass Index 27.59 03/10/2023 1:28 PM CDT Plan of Treatment Health Maintenance Due Date Last Done Comments DTAP/TDAP/TD VACCINES (1 - Tdap) 1976 BREAST CANCER SCREENING 1997 FIT-DNA Q 3 years 2002 FIT/FOBT Q 1 year 2002 Flex Sig/CT Colonography Q 5 years 2002 PNEUMOCOCCAL VACCINE 65+ YEARS (1 of 1 - PCV) 05/07/20 07 ZOSTER VACCINE (1 of 2) 2007 OSTEOPOROSIS SCREENING 2022 INFLUENZA VACCINE (#1) 2024 RSV VACCINE (60+ or ) (1 - 1-dose 75+ series) 2032 COLORECTAL SCREENING 11/27/2032 11/27/2022 Colorectal Cancer Screening 11/27/2032 Insurance [facility] [id number]
--- OUTSIDE RECORDS SUMMARY | 2024-10-22 09:44 | XMS_ITS | Data Portability ---
Author Organization [place] - [facility] [employer], Main Office Address [address] [place] [address] Care Team Providers Care Data Processing Operator Name Role Phone MAGALYS GONZALES Primary Care Provider MAGALYS GONZALES Referring Provider [phone] Assessment No assessment recorded. Plan of Treatment Reminders Order Date Submit Date Provider Last Modified By Organization Details Last Modified Time Details Appointments Follow Up 30 2024 02:00P Rosaline Winters NP Not available Not available Not available Lab pap, IG + HR HPV 2022 023 JAYLEEN Not available 06/27/2023 11:25:14 iron + total iron-bind ing capacity (TIBC), serum 2022 023 JAYLEEN Not available 07/23/2023 15:09:56 ferritin, serum or plasma 2022 023 77 Not available 08/04/2023 08:09:29 CBC w/ auto diff 2022 023 JAYLEEN Not available 07/16/2023 08:44:52 BMP, serum or plasma 2023 024 [email or web address] 77 Not available 02/19/2024 07:51:10 lipid panel, serum 2023 024 [email or web address] 77 Not available 02/19/2024 07:51:09 hepatic function panel, serum 2023 024 [email or web address] 77 Not available 02/19/2024 07:51:10 vitamin D, 25-hydrox y, total, serum 2023 024 [email or web address] 77 Not available 02/19/2024 07:51:09 TSH, serum or plasma 2023 024 77 Not available 02/19/2024 07:51:09 T4, free, serum 2023 024 77 Not available 02/19/2024 07:51:09 ferritin, serum or plasma 2023 024 [email or web address] 77 Not available 02/19/2024 07:51:09 iron + total iron-bind ing capacity (TIBC), serum 2023 024 [email or web address] 77 Not available 02/19/2024 07:51:09 CBC w/ auto diff 2023 024 77 Not available 02/19/2024 07:51:09 lipid panel, serum 2023 024 JAYLEEN Not available 07/21/2024 08:10:53 hepatic function panel, serum 2023 024 JAYLEEN Not available 07/21/2024 08:10:57 BMP, serum or plasma 2023 024 JAYLEEN Not available 07/21/2024 08:10:56 vitamin D, 25-hydrox y, total, serum 2023 024 JAYLEEN Not available 07/21/2024 08:11:02 TSH, serum or plasma 2023 024 JAYLEEN Not available 07/21/2024 08:11:01 T4, free, serum 2023 024 JAYLEEN Not available 07/21/2024 08:11:00 ferritin, serum or plasma 2023 024 JAYLEEN Not available 07/21/2024 08:10:59 iron + total iron-bind ing capacity (TIBC), serum 2023 024 JAYLEEN Not available 07/21/2024 08:10:55 CBC w/ auto diff 2023 024 JAYLEEN Not available 07/21/2024 08:10:58 Referral None recorded. Procedures None recorded. Surgeries None recorded. Imaging XR, chest, 2 view 2022 023 JAYLEEN Not available 03/27/2023 19:02:46 MAMMO, screening , digital, bilateral - *Please call pt to schedule* 2023 024 56 [place] [facility] (Radiology), [address] [facility] [place], [address], 01/22/2024 09:54:47 DEXA - *Please call pt to schedule* 2023 024 [email or web address] 56 [place] [facility] (Radiology), [address] [facility] [place], [address], 01/22/2024 09:54:47 Medication Orders diazepam 10 mg tablet 2022 023 [id number], [address], [place], [place], [id number], 06/24/2023 12:41:43 icosapent ethyl 1 gram capsule 2022 023 [facility] #[id number], [address], [place], [place], [id number], 06/24/2023 12:19:39 Zithromax Z-Jatinder 250 mg tablet 2023 024 [email or web address] [facility] #[id number], [address], [place], [place], [id number], 06/04/2024 14:56:37 Prolia 60 mg/mL subcutane ous syringe 2023 024 [facility] #[id number], [address], [place], [place], [id number], 06/06/2024 18:19:31 zolpidem 10 mg tablet 2023 024 JAYLE[facility] #[id number], [address], [place], [place], [id number], 06/06/2024 18:19:33 Patient TargetsNo targets recorded. Patient Instructions Encounter Date Encounter Id Patient Instructions Last Modified By Organization Details Last Modified Time 11/20/2023 [id number] [facility]ized [facility] Plan and Screening Recommendations Advance Directives - Do you have one? Advance Directives - Do we have your advance directive on file in your health record? Primary Prevention/Interven tion (prevents or decreases the chance of common diseases from occurring) Smoking Risk: Alcohol Misuse Screening: Weight: Physical activity: Nutrition: Fall Risk (screened today): Vaccines Pneumococcal: Influenza: Chronic Disease Risks Stroke: I have no recommendations Active diagnosis, Continue current treatment plan Heart Attack: I have no recommendations Act alvarez diagnosis, Continue current treatment plan Clogging of the Arteries: I have no recommendations Act alvarez diagnosis, Continue current treatment plan Diabetes: Secondary Prevention/Interven tion (detects treatable diseases before they may cause symptoms, disability, or ) Breast Cancer Screening with mammogram: Cervical/Uterine/Ov bipin Cancer Screening: Osteoporosis Screening: Date Screening Last Performed: Colon Cancer Screening: Date Screening Last Performed: Eye Disease Screening: Dementia Risk: Depression Screening: Not available 11/20/2023 15:21:06 12/23/2023 [id number] Personalized [facility] Plan and Screening Recommendations Advance Directives - Do you have one? Advance Directives - Do we have your advance directive on file in your health record? Primary Prevention/Interven tion (prevents or decreases the chance of common diseases from occurring) Smoking Risk: Alcohol Misuse Screening: Weight: Physical activity: Nutrition: Fall Risk (screened today): Vaccines Pneumococcal: Influenza: Chronic Disease Risks Stroke: I have no recommendations Act alvarez diagnosis, Continue current treatment plan Heart Attack: I have no recommendations Act alvarez diagnosis, Continue current treatment plan Clogging of the Arteries: I have no recommendations Act alvarez diagnosis, Continue current treatment plan Diabetes: Secondary Prevention/Interven tion (detects treatable diseases before they may cause symptoms, disability, or ) Breast Cancer Screening with mammogram: Cervical/Uterine/Ov bipin Cancer Screening: Osteoporosis Screening: Date Screening Last Performed: Colon Cancer Screening: Date Screening Last Performed: Eye Disease Screening: Dementia Risk: Depression Screening: [email or web address] Not available 12/23/2023 15:31:33 Reason for Referral None Reported. Results Created Date Observation Date Name Description Value Unit Range Abnormal Flag Note LastModifiedBy Organization Detail LastModifiedTime 06/17/2006/18/2023 LIPID PANEL , STAND JORGE cholesterol, total 298 mg/dL <200 high Not Available [address], [address], 06/18/2023 09:14:55 06/17/2006/18/2023 LIPID PANEL , STAND JORGE HDL cholesterol 78 mg/dL > or = 50 normal Not Available [address], [address], 06/18/2023 09:14:55 06/17/2006/18/2023 LIPID PANEL , STAND JORGE triglyceride s 198 mg/dL <150 high Not Available [address], [address], 06/18/2023 09:14:55 06/17/2006/18/2023 LIPID PANEL , STAND JORGE LDL-choleste rol 182 mg/dL _(antolin c) high Refer ence range : <100 Mejia able range <100 mg/dL for prima ry preve ntion ; <70 mg/dL for patie nts with CHD or diabe tic patie nts with > or = 2 CHD risk facto rs. LDL-C is now calcu lated using the Amy n-Hop kins jamie wood, which is a valid ated novel charity trujillo acberto than the Fried remy equat ion in the estim ation of LDL-C . Amy wood SS et al. MILADY. 2013; 310(9 2): 2061- 2068 (http ://ed ucati on.Qu estDi santos tics. com/f aq/FA Q164) Not Available [facility] [address] [address] [place], [address], 06/18/2023 09:14:55 06/17/2006/18/2023 LIPID PANEL , STAND JORGE chol/HDLC ratio 3.8 (calc ) <5.0 normal Not Available [facility] [address] [address] [place], [address], 06/18/2023 09:14:55 06/17/2006/18/2023 LIPID PANEL , STAND JORGE non HDL cholesterol 220 mg/dL _(antolin c) <130 high Non-H DL level > or = 220 is very high and may indic ate ana rosa ic famil ial hyper sada stero lemia (FH). Clini antolin asses sment and measu remen t of blood lipid level s shoul d be consi dered for all first -degr ee relat eli of patie nts with an FH diagn osis. For patie nts with diabe darcie plus 1 major ASCVD risk facto r, treat ing to a non-H DL-C goal of <100 mg/dL (LDL- C of <70 mg/dL ) is consi dered a thera peuti c optio n. Not Available [address] [address] [address], [place], [address], 06/18/2023 09:14:55 06/17/2006/18/2023 IRON AND TOTAL IRON DELORES NG CAPAC ITY iron, total 210 mcg/d L 45-160 high Not Available [facility] [address] [address] [place], [address], 06/18/2023 09:14:57 06/17/2006/18/2023 IRON AND TOTAL IRON DELORES NG CAPAC ITY iron binding capacity 394 mcg/d L_(ca lc) 250-45 0 normal Not Available [facility] [address] [address] [place], [address], 06/18/2023 09:14:57 06/17/2006/18/2023 IRON AND TOTAL IRON DELORES NG CAPAC ITY % saturation 53 %_(ca lc) 16-45 high Not Available [address], [address], 06/18/2023 09:14:57 06/17/2006/18/2023 BASIC METAB OLIC PANEL glucose 93 mg/dL 65-99 normal Fasti ng refer ence inter ivette Not Available [address], [address], 06/18/2023 09:14:58 06/17/2006/18/2023 BASIC METAB OLIC PANEL urea nitrogen (BUN) 14 mg/dL 7-25 normal Not Available [address], [address], 06/18/2023 09:14:58 06/17/2006/18/2023 BASIC METAB OLIC PANEL creatinine 0.82 mg/dL 0.50-1 .05 normal Not Available [address], [address], 06/18/2023 09:14:58 06/17/2006/18/2023 BASIC METAB OLIC PANEL eGFR 79 mL/mi n/1.7 3m2 > or = 60 normal Not Available [address], [address], 06/18/2023 09:14:58 06/17/2006/18/2023 BASIC METAB OLIC PANEL BUN/creatini ne ratio SEE NOTE: (calc ) 6-22 Not Repor nel: BUN and Creat inine are withi n refer ence range . Not Available [address], [address], 06/18/2023 09:14:58 06/17/20 23 06/18/2023 BASIC METAB OLIC PANEL sodium 140 mmol/ L 135-14 6 normal Not Available [address], [address], 06/18/2023 09:14:58 06/17/2006/18/2023 BASIC METAB OLIC PANEL potassium 3.8 mmol/ L 3.5-5. 3 normal Not Available [address], [address], 06/18/2023 09:14:58 06/17/2006/18/2023 BASIC METAB OLIC PANEL chloride 94 mmol/ L 98-110 low Not Available [address], [address], 06/18/2023 09:14:58 06/17/2006/18/2023 BASIC METAB OLIC PANEL carbon dioxide 33 mmol/ L 20-32 high Not Available [address], [address], 06/18/2023 09:14:58 06/17/2006/18/2023 BASIC METAB OLIC PANEL calcium 9.6 mg/dL 8.6-10 .4 normal Not Available [address], [address], 06/18/2023 09:14:58 06/17/2006/18/2023 HEPAT IC FUNCT ION PANEL protein, total 7.8 g/dL 6.1-8. 1 normal Not Available [address], [address], 06/18/2023 09:14:59 06/17/2006/18/2023 HEPAT IC FUNCT ION PANEL albumin 4.7 g/dL 3.6-5. 1 normal Not Available [address], [address], 06/18/2023 09:14:59 06/17/2006/18/2023 HEPAT IC FUNCT ION PANEL globulin 3.1 g/dL_ (calc ) 1.9-3. 7 normal Not Available [address], [address], 06/18/2023 09:14:59 06/17/2006/18/2023 HEPAT IC FUNCT ION PANEL albumin/glob ulin ratio 1.5 (calc ) 1.0-2. 5 normal Not Available [address], [address], 06/18/2023 09:14:59 06/17/2006/18/2023 HEPAT IC FUNCT ION PANEL bilirubin, total 0.6 mg/dL 0.2-1. 2 normal Not Available [address], [address], 06/18/2023 09:14:59 06/17/2006/18/2023 HEPAT IC FUNCT ION PANEL bilirubin, direct 0.1 mg/dL < or = 0.2 normal Not Available [address], [address], 06/18/2023 09:14:59 06/17/2006/18/2023 HEPAT IC FUNCT ION PANEL bilirubin, indirect 0.5 mg/dL _(antolin c) 0.2-1. 2 normal Not Available [address], [address], 06/18/2023 09:14:59 06/17/2006/18/2023 HEPAT IC FUNCT ION PANEL alkaline phosphatase 101 U/L 37-153 normal Not Available [facility] [employer] [address], [address], 06/18/2023 09:14:59 06/17/2006/18/2023 HEPAT IC FUNCT ION PANEL AST 29 U/L 10-35 normal Not Available [address], [address], 06/18/2023 09:14:59 06/17/20 23 06/18/2023 HEPAT IC FUNCT ION PANEL ALT 25 U/L 6-29 normal Not Available [address], [address], 06/18/2023 09:14:59 06/17/20 23 06/18/2023 CBC (INCL UDES DIFF/ PLT) white blood cell count 6.7 thous and/u L 3.8-10 .8 normal Not Available [address], [address], 06/18/2023 09:15:00 06/17/2006/18/2023 CBC (INCL UDES DIFF/ PLT) red blood cell count 5.52 maria teresa on/uL 3.80-5 .10 high Not Available [address], [address], 06/18/2023 09:15:00 06/17/2006/18/2023 CBC (INCL UDES DIFF/ PLT) hemoglobin 16.4 g/dL 11.7-1 5.5 high Not Available [address], [address], 06/18/2023 09:15:00 06/17/2006/18/2023 CBC (INCL UDES DIFF/ PLT) hematocrit 48.8 % 35.0-4 5.0 high Not Available [address], [address], 06/18/2023 09:15:00 06/17/2006/18/2023 CBC (INCL UDES DIFF/ PLT) MCV 88.4 fL 80.0-1 00.0 normal Not Available [address], [address], 06/18/2023 09:15:00 06/17/2006/18/2023 CBC (INCL UDES DIFF/ PLT) MCH 29.7 pg 27.0-3 3.0 normal Not Available [address], [address], 06/18/2023 09:15:00 06/17/2006/18/2023 CBC (INCL UDES DIFF/ PLT) MCHC 33.6 g/dL 32.0-3 6.0 normal Not Available [address], [address], 06/18/2023 09:15:00 06/17/2006/18/2023 CBC (INCL UDES DIFF/ PLT) RDW 13.2 % 11.0-1 5.0 normal Not Available [address], [address], 06/18/2023 09:15:00 06/17/2006/18/2023 CBC (INCL UDES DIFF/ PLT) platelet count 282 thous and/u L 140-40 0 normal Not Available [address], [address], 06/18/2023 09:15:00 06/17/2006/18/2023 CBC (INCL UDES DIFF/ PLT) MPV 11.4 fL 7.5-12 .5 normal Not Available [address], [address], 06/18/2023 09:15:00 06/17/2006/18/2023 CBC (INCL UDES DIFF/ PLT) absolute neutrophils 3987 cells /uL 1500-7 800 normal Not Available [address], [address], 06/18/2023 09:15:00 06/17/2006/18/2023 CBC (INCL UDES DIFF/ PLT) absolute lymphocytes 1769 cells /uL 850-39 00 normal Not Available [address], [address], 06/18/2023 09:15:00 06/17/2006/18/2023 CBC (INCL UDES DIFF/ PLT) absolute monocytes 556 cells /uL 200-95 0 normal Not Available [address], [address], 06/18/2023 09:15:00 06/17/2006/18/2023 CBC (INCL UDES DIFF/ PLT) absolute eosinophils 348 cells /uL 15-500 normal Not Available [address], [address], 06/18/2023 09:15:00 06/17/2006/18/2023 CBC (INCL UDES DIFF/ PLT) absolute basophils 40 cells /uL 0-200 normal Not Available [address], [address], 06/18/2023 09:15:00 06/17/2006/18/2023 CBC (INCL UDES DIFF/ PLT) neutrophils 59.5 % normal Not Available [facility] [address], [address], 06/18/2023 09:15:00 06/17/2006/18/2023 CBC (INCL UDES DIFF/ PLT) lymphocytes 26.4 % normal Not Available [address], [address], 06/18/2023 09:15:00 06/17/2006/18/2023 CBC (INCL UDES DIFF/ PLT) monocytes 8.3 % normal Not Available [address], [address], 06/18/2023 09:15:00 06/17/20 23 06/18/2023 CBC (INCL UDES DIFF/ PLT) eosinophils 5.2 % normal Not Available [address], [address], 06/18/2023 09:15:00 06/17/20 23 06/18/2023 CBC (INCL UDES DIFF/ PLT) basophils 0.6 % normal Not Available [address], [address], 06/18/2023 09:15:00 06/17/20 23 06/18/2023 EMMANUELLE TIN ferritin 30 NG/mL 16-288 normal Not Available [facility] [address], [address], 06/18/2023 09:15:01 06/17/2006/18/2023 T4, FREE T4, free 1.2 NG/dL 0.8-1. 8 normal Not Available [address], [address], 06/18/2023 09:15:02 06/17/2006/18/2023 TSH TSH 3.83 mIU/L 0.40-4 .50 normal Not Available [facility] [address], [address], 06/18/2023 09:15:04 06/17/2006/18/2023 VITAM IN D,25- OH,TO RANJANA,I A vitamin D,25-oh,tota l,ia 46 NG/mL 30-100 normal Vitam in D Statu s 25-OH Vitam in D: Defic iency : <20 ng/mL Insuf ficie ncy: 20 - 29 ng/mL Optim al: > or = 30 ng/mL For 25-OH Vitam in D testi ng on patie nts on D2-mcghee pplem entat ion and patie nts for whom quant itati on of D2 and D3 fract ions is requi red, the [facility](TM ) 25-OH VIT D, (D2,D 3), LC/MS /MS is recom hilda d: order code 56842 (rebeka ents >2yrs ). See Note 1 Note 1 For addit ional infor cathi sierra e refer to http: //annie wood.Que stDia gnost ics.c om/fa q/FAQ 199 (This link is being provi ded for infor consuelo ngo/ david joseph purpo ses only. ) Not Available [facility] [address] [address], [place], [address], 06/18/2023 09:15:05 06/24/20 23 06/27/2023 PAP THINP REP W/HPV -HR diagnosis: Eli SOSA IVE FOR INTRA EPITH ELIAL LESIO N OR MALIG HARLAN . CELLU TASHA WALSH ES ASSOC IATED WITH ATROP HY AND INFLA MMATI ON AR E PRESE NT. Not Available Not Available 06/27/2023 11:13:30 06/24/20 23 06/27/2023 PAP THINP REP W/HPV -HR specimen adequacy: Eli Stoddard Satis facto ry for evalu ation . Endoc ervic al and/o r squam ous m etapl astic cells (endo cervi antolin compo nent) are prese nt. Not Available Not Available 06/27/2023 11:13:30 06/24/20 23 06/27/2023 PAP THINP REP W/HPV -HR performed by: Eli mujica, Cytot kylie sam (ASCP ) Not Available Not Available 06/27/2023 11:13:30 06/24/20 23 06/27/2023 PAP THINP REP W/HPV -HR . . Not Available Not Availa ble 06/27/2023 11:13:30 06/24/20 23 06/27/2023 PAP THINP REP W/HPV -HR note: Commaiden t The Pap smear is a scree nathan test desig becca to aid in the detec tion of delia ligna nt and malig nant condi tions of the uteri ne cervi x. It is not a diagn ostic proce dure and shoul d not be used as the sole means of detec ting cervi antolin cance r. Both false -posi tive and false -nega tive repor ts do occur . . Not Available Not Available 06/27/2023 11:13:30 06/24/2006/27/2023 PAP THINP REP W/HPV -HR test methodology: Eli sam This liqui d based ThinP rep(R ) pap test was gino hudson with the use of an image guide leland kauffman Not Available Not Available 06/27/2023 11:13:30 06/24/2006/27/2023 PAP THINP REP W/HPV -HR aptima HPV, reflex Negati ve negati ve This nucle ic acid ampli ficat ion test detec ts fourt een high- risk HPV types (16,1 8,31, 33,35 ,39,4 5,51, 52,56 ,58,5 9,66, 68) witho ut diffe renti ation . Perfo rmed at: [facility] [place] [address] [facility] , [place] [address] Lab Direc tor: Charles bellamy MD, Phone : [phone] Perfo rmed at: =[facility] [place] [address] [facility] , [facility] [address] Lab Direc tor: Charles bellamy MD, Phone : [phone] Not Available Not Available 06/27/2023 11:13:30 07/15/2007/16/2023 IRON, TIBC AND EMMANUELLE TIN PANEL iron, total 193 mcg/d L 45-160 high Not Available Not Available 07/16/20 08:44:52 07/15/2007/16/2023 IRON, TIBC AND EMMANUELLE TIN PANEL iron binding capacity 410 mcg/d L_(ca lc) 250-45 0 normal Not Available Not Available 07/16/2023 08:44:52 07/15/2007/16/2023 IRON, TIBC AND EMMANUELLE TIN PANEL % saturation 47 %_(ca lc) 16-45 high Not Available Not Available 07/16/20 08:44:52 07/15/2007/16/2023 IRON, TIBC AND EMMANUELLE TIN PANEL ferritin 51 NG/mL 16-288 normal Not Available Not Avail able 07/16/2023 08:44:52 07/15/2007/1607/16/2023 CBC (INCL UDES DIFF/ PLT) white blood cell count 6.1 thous and/u L 3.8-10 .8 normal Not Available [address], [address], 07/16/2023 08:44:52 07/15/2007/16/2023 CBC (INCL UDES DIFF/ PLT) red blood cell count 5.32 maria teresa on/uL 3.80-5 .10 high Not Available [address], [address], 07/16/2023 08:44:52 07/15/2007/16/2023 CBC (INCL UDES DIFF/ PLT) hemoglobin 15.8 g/dL 11.7-1 5.5 high Not Available [address], [address], 07/16/2023 08:44:52 07/15/2007/16/2023 CBC (INCL UDES DIFF/ PLT) hematocrit 47.9 % 35.0-4 5.0 high Not Available [address], [address], 07/16/2023 08:44:52 07/15/2007/16/2023 CBC (INCL UDES DIFF/ PLT) MCV 90.0 fL 80.0-1 00.0 normal Not Available [address], [address], 07/16/2023 08:44:52 07/15/2007/16/2023 CBC (INCL UDES DIFF/ PLT) MCH 29.7 pg 27.0-3 3.0 normal Not Available [address], [address], 07/16/2023 08:44:52 07/15/2007/16/2023 CBC (INCL UDES DIFF/ PLT) MCHC 33.0 g/dL 32.0-3 6.0 normal Not Available [address], [address], 07/16/2023 08:44:52 07/15/2007/16/2023 CBC (INCL UDES DIFF/ PLT) RDW 13.1 % 11.0-1 5.0 normal Not Available [address], [address], 07/16/2023 08:44:52 07/15/2007/16/2023 CBC (INCL UDES DIFF/ PLT) platelet count 266 thous and/u L 140-40 0 normal Not Available [address], [address], 07/16/2023 08:44:52 07/15/2007/16/2023 CBC (INCL UDES DIFF/ PLT) MPV 11.5 fL 7.5-12 .5 normal Not Available [address], [address], 07/16/2023 08:44:52 07/15/2007/16/2023 CBC (INCL UDES DIFF/ PLT) absolute neutrophils 3514 cells /uL 1500-7 800 normal Not Available [address], [address], 07/16/2023 08:44:52 07/15/2007/16/2023 CBC (INCL UDES DIFF/ PLT) absolute lymphocytes 1604 cells /uL 850-39 00 normal Not Available [address], [address], 07/16/2023 08:44:52 07/15/2007/16/2023 CBC (INCL UDES DIFF/ PLT) absolute monocytes 580 cells /uL 200-95 0 normal Not Available [address], [address], 07/16/2023 08:44:52 07/15/2007/16/2023 CBC (INCL UDES DIFF/ PLT) absolute eosinophils 342 cells /uL 15-500 normal Not Available [address], [address], 07/16/2023 08:44:52 07/15/2007/16/2023 CBC (INCL UDES DIFF/ PLT) absolute basophils 61 cells /uL 0-200 normal Not Available [address], [address], 07/16/2023 08:44:52 07/15/2007/16/2023 CBC (INCL UDES DIFF/ PLT) neutrophils 57.6 % normal Not Available [address], [address], 07/16/2023 08:44:52 07/15/2007/16/2023 CBC (INCL UDES DIFF/ PLT) lymphocytes 26.3 % normal Not Available [facility] [address], [address], 07/16/2023 08:44:52 07/15/2007/16/2023 CBC (INCL UDES DIFF/ PLT) monocytes 9.5 % normal Not Available [facility] [address], [address], 07/16/2023 08:44:52 07/15/2007/16/2023 CBC (INCL UDES DIFF/ PLT) eosinophils 5.6 % normal Not Available [facility] [address], [address], 07/16/2023 08:44:52 07/15/2007/16/2023 CBC (INCL UDES DIFF/ PLT) basophils 1.0 % normal Not Available [facility] [address], [address], 07/16/2023 08:44:52 09/09/20 09/10/2023 IRON AND TOTAL IRON DELORES NG CAPAC ITY iron, total 88 mcg/d L 45-160 normal Not Available [address], [address], 09/10/2023 07:56:55 09/09/20 23 09/10/2023 IRON AND TOTAL IRON DELORES NG CAPAC ITY iron binding capacity 384 mcg/d L_(ca lc) 250-45 0 normal Not Available [address], [address], 09/10/2023 07:56:55 09/09/20 23 09/10/2023 IRON AND TOTAL IRON DELORES NG CAPAC ITY % saturation 23 %_(ca lc) 16-45 normal Not Available [address], [address], 09/10/2023 07:56:55 09/09/20 23 09/10/2023 EMMANUELLE TIN ferritin 17 NG/mL 16-288 normal Not Available [address], [address], 09/10/2023 07:56:57 11/12/19 24 11/13/2023 CBC (INCL UDES DIFF/ PLT) white blood cell count 8.3 thous and/u L 3.8-10 .8 normal Not Available [address], [address], 11/13/2023 07:22:17 11/12/19 24 11/13/2023 CBC (INCL UDES DIFF/ PLT) red blood cell count 5.30 maria teresa on/uL 3.80-5 .10 high Not Available [address], [address], 11/13/2023 07:22:17 11/12/19 24 11/13/2023 CBC (INCL UDES DIFF/ PLT) hemoglobin 15.7 g/dL 11.7-1 5.5 high Not Available [address], [address], 11/13/2023 07:22:17 11/12/19 24 11/13/2023 CBC (INCL UDES DIFF/ PLT) hematocrit 47.0 % 35.0-4 5.0 high Not Available [address], [address], 11/13/2023 07:22:17 11/12/19 24 11/13/2023 CBC (INCL UDES DIFF/ PLT) MCV 88.7 fL 80.0-1 00.0 normal Not Available [address], [address], 11/13/2023 07:22:17 11/12/19 24 11/13/2023 CBC (INCL UDES DIFF/ PLT) MCH 29.6 pg 27.0-3 3.0 normal Not Available [address], [address], 11/13/2023 07:22:17 11/12/19 24 11/13/2023 CBC (INCL UDES DIFF/ PLT) MCHC 33.4 g/dL 32.0-3 6.0 normal Not Available [address], [address], 11/13/2023 07:22:17 11/12/19 24 11/13/2023 CBC (INCL UDES DIFF/ PLT) RDW 13.1 % 11.0-1 5.0 normal Not Available [address], [address], 11/13/2023 07:22:17 11/12/19 24 11/13/2023 CBC (INCL UDES DIFF/ PLT) platelet count 247 thous and/u L 140-40 0 normal Not Available [address], [address], 11/13/2023 07:22:17 11/12/19 24 11/13/2023 CBC (INCL UDES DIFF/ PLT) MPV 11.3 fL 7.5-12 .5 normal Not Available [address], [address], 11/13/2023 07:22:17 11/12/19 24 11/13/2023 CBC (INCL UDES DIFF/ PLT) absolute neutrophils 6524 cells /uL 1500-7 800 normal Not Available [address], [address], 11/13/2023 07:22:17 11/12/19 24 11/13/2023 CBC (INCL UDES DIFF/ PLT) absolute lymphocytes 1112 cells /uL 850-39 00 normal Not Available [address], [address], 11/13/2023 07:22:17 11/12/19 24 11/13/2023 CBC (INCL UDES DIFF/ PLT) absolute monocytes 448 cells /uL 200-95 0 normal Not Available [address], [address], 11/13/2023 07:22:17 11/12/19 24 11/13/2023 CBC (INCL UDES DIFF/ PLT) absolute eosinophils 183 cells /uL 15-500 normal Not Available [address], [address], 11/13/2023 07:22:17 11/12/19 24 11/13/2023 CBC (INCL UDES DIFF/ PLT) absolute basophils 33 cells /uL 0-200 normal Not Available [address], [address], 11/13/2023 07:22:17 11/12/19 24 11/13/2023 CBC (INCL UDES DIFF/ PLT) neutrophils 78.6 % normal Not Available [address], [address], 11/13/2023 07:22:17 11/12/19 24 11/13/2023 CBC (INCL UDES DIFF/ PLT) lymphocytes 13.4 % normal Not Available [address], [address], 11/13/2023 07:22:17 11/12/19 24 11/13/2023 CBC (INCL UDES DIFF/ PLT) monocytes 5.4 % normal Not Available [address], [address], 11/13/2023 07:22:17 11/12/19 24 11/13/2023 CBC (INCL UDES DIFF/ PLT) eosinophils 2.2 % normal Not Available [address], [address], 11/13/2023 07:22:17 11/12/19 24 11/13/2023 CBC (INCL UDES DIFF/ PLT) basophils 0.4 % normal Not Available [address], [address], 11/13/2023 07:22:17 11/19/19 24 11/20/2023 IRON AND TOTAL IRON DELORES NG CAPAC ITY iron, total 126 mcg/d L 45-160 normal Not Available [address], [address], 11/20/2023 10:44:06 11/19/19 24 11/20/2023 IRON AND TOTAL IRON DELORES NG CAPAC ITY iron binding capacity 361 mcg/d L_(ca lc) 250-45 0 normal Not Available [address], [address], 11/20/2023 10:44:06 11/19/19 24 11/20/2023 IRON AND TOTAL IRON DELORES NG CAPAC ITY % saturation 35 %_(ca lc) 16-45 normal Not Available [address] [place], [address], 11/20/2023 10:44:06 11/19/19 24 11/20/2023 EMMANUELLE TIN ferritin 38 NG/mL 16-288 normal Not Available [address], [address], 11/20/2023 10:44:08 01/07/20 24 01/08/2024 LIPID PANEL , STAND JORGE cholesterol, total 189 mg/dL <200 normal Not Available [facility] [address], [address], 01/08/2024 13:48:17 01/07/20 24 01/08/2024 LIPID PANEL , STAND JORGE HDL cholesterol 69 mg/dL > or = 50 normal Not Available [address], [address], 01/08/2024 13:48:17 01/07/20 24 01/08/2024 LIPID PANEL , STAND JORGE triglyceride s 175 mg/dL <150 high Not Available [address], [address], 01/08/2024 13:48:17 01/07/20 24 01/08/2024 LIPID PANEL , STAND JORGE LDL-choleste rol 93 mg/dL _(antolin c) normal Refer ence range : <100 Mejia able range <100 mg/dL for prima ry preve ntion ; <70 mg/dL for patie nts with CHD or diabe tic patie nts with > or = 2 CHD risk facto rs. LDL-C is now calcu lated using the Amy wood-Hop alondra hurtado n, which is a valid ated novel charity ibarra than the Fried remy equat ion in the estim ation of LDL-C . Amy wood SS et al. MILADY. 2013; 310(1 9): 2061- 2068 (http ://ed ucati on.Qu estDi MoVoxxs. com/f aq/FA Q164) Not Available [address] [address] [place], [address], 01/08/2024 13:48:17 01/07/20 24 01/08/2024 LIPID PANEL , STAND JORGE chol/HDLC ratio 2.7 (calc ) <5.0 normal Not Available [address], [address], 01/08/2024 13:48:17 01/07/20 24 01/08/2024 LIPID PANEL , STAND JORGE non HDL cholesterol 120 mg/dL _(antolin c) <130 normal For patie nts with diabe darcie plus 1 major ASCVD risk facto r, treat ing to a non-H DL-C goal of <100 mg/dL (LDL- C of <70 mg/dL ) is consi dered a thera peuti c optio n. Not Available [address], [address], 01/08/2024 13:48:17 01/07/20 24 01/08/2024 IRON AND TOTAL IRON DELORES NG CAPAC ITY iron, total 89 mcg/d L 45-160 normal Not Available [address] [address] [place], [address], 01/08/2024 13:48:18 01/07/20 24 01/08/2024 IRON AND TOTAL IRON DELORES NG CAPAC ITY iron binding capacity 395 mcg/d L_(ca lc) 250-45 0 normal Not Available [address] [address] [place], [address], 01/08/2024 13:48:18 01/07/20 24 01/08/2024 IRON AND TOTAL IRON DELORES NG CAPAC ITY % saturation 23 %_(ca lc) 16-45 normal Not Available [address] [address] [place], [address], 01/08/2024 13:48:18 01/07/20 24 01/08/2024 BASIC METAB OLIC PANEL glucose 98 mg/dL 65-139 normal Non-f astin g refer ence inter ivette Not Available [address], [address], 01/08/2024 13:48:18 01/07/20 24 01/08/2024 BASIC METAB OLIC PANEL urea nitrogen (BUN) 18 mg/dL 7-25 normal Not Available [address] [address] [place], [address], 01/08/2024 13:48:18 01/07/20 24 01/08/2024 BASIC METAB OLIC PANEL creatinine 0.72 mg/dL 0.50-1 .05 normal Not Available [address] [address] [place], [address], 01/08/2024 13:48:18 01/07/20 24 01/08/2024 BASIC METAB OLIC PANEL eGFR 92 mL/mi n/1.7 3m2 > or = 60 normal Not Available [address] [place], [address], 01/08/2024 13:48:18 01/07/20 24 01/08/2024 BASIC METAB OLIC PANEL BUN/creatini ne ratio SEE NOTE: (calc ) 6-22 Not Repor nel: BUN and Creat inine are withi n refer ence range . Not Available [address] [address] [place], [address], 01/08/2024 13:48:18 01/07/20 24 01/08/2024 BASIC METAB OLIC PANEL sodium 138 mmol/ L 135-14 6 normal Not Available [address], [address], 01/08/2024 13:48:18 01/07/20 24 01/08/2024 BASIC METAB OLIC PANEL potassium 3.5 mmol/ L 3.5-5. 3 normal Not Available [facility] [address], [address], 01/08/2024 13:48:18 01/07/20 24 01/08/2024 BASIC METAB OLIC PANEL chloride 93 mmol/ L 98-110 low Not Available [address], [address], 01/08/2024 13:48:18 01/07/20 24 01/08/2024 BASIC METAB OLIC PANEL carbon dioxide 32 mmol/ L 20-32 normal Not Available [address], [address], 01/08/2024 13:48:18 01/07/20 24 01/08/2024 BASIC METAB OLIC PANEL calcium 9.7 mg/dL 8.6-10 .4 normal Not Available [address], [address], 01/08/2024 13:48:18 01/07/20 24 01/08/2024 HEPAT IC FUNCT ION PANEL protein, total 7.0 g/dL 6.1-8. 1 normal Not Available [address], [address], 01/08/2024 13:48:19 01/07/20 24 01/08/2024 HEPAT IC FUNCT ION PANEL albumin 4.5 g/dL 3.6-5. 1 normal Not Available [address], [address], 01/08/2024 13:48:19 01/07/20 24 01/08/2024 HEPAT IC FUNCT ION PANEL globulin 2.5 g/dL_ (calc ) 1.9-3. 7 normal Not Available [address], [address], 01/08/2024 13:48:19 01/07/20 24 01/08/2024 HEPAT IC FUNCT ION PANEL albumin/glob ulin ratio 1.8 (calc ) 1.0-2. 5 normal Not Available [address] [address] [place], [address], 01/08/2024 13:48:19 01/07/20 24 01/08/2024 HEPAT IC FUNCT ION PANEL bilirubin, total 0.4 mg/dL 0.2-1. 2 normal Not Available [address] [address] [place], [address], 01/08/2024 13:48:19 01/07/20 24 01/08/2024 HEPAT IC FUNCT ION PANEL bilirubin, direct 0.1 mg/dL < or = 0.2 normal Not Available [address] [address] [place], [address], 01/08/2024 13:48:19 01/07/20 24 01/08/2024 HEPAT IC FUNCT ION PANEL bilirubin, indirect 0.3 mg/dL _(antolin c) 0.2-1. 2 normal Not Available [address] [address] [place], [address], 01/08/2024 13:48:19 01/07/20 24 01/08/2024 HEPAT IC FUNCT ION PANEL alkaline phosphatase 73 U/L 37-153 normal Not Available [address] [address] [place], [address], 01/08/2024 13:48:19 01/07/20 24 01/08/2024 HEPAT IC FUNCT ION PANEL AST 21 U/L 10-35 normal Not Available [address] [address] [place], [address], 01/08/2024 13:48:19 01/07/20 24 01/08/2024 HEPAT IC FUNCT ION PANEL ALT 17 U/L 6-29 normal Not Available [address] [address] [place], [address], 01/08/2024 13:48:19 01/07/20 24 01/08/2024 CBC (INCL UDES DIFF/ PLT) white blood cell count 9.4 thous and/u L 3.8-10 .8 normal Not Available [address], [address], 01/08/2024 13:48:19 01/07/20 24 01/08/2024 CBC (INCL UDES DIFF/ PLT) red blood cell count 5.11 maria teresa on/uL 3.80-5 .10 high Not Available [address], [address], 01/08/2024 13:48:19 01/07/20 24 01/08/2024 CBC (INCL UDES DIFF/ PLT) hemoglobin 15.1 g/dL 11.7-1 5.5 normal Not Available [address], [address], 01/08/2024 13:48:19 01/07/20 24 01/08/2024 CBC (INCL UDES DIFF/ PLT) hematocrit 45.9 % 35.0-4 5.0 high Not Available [address], [address], 01/08/2024 13:48:19 01/07/20 24 01/08/2024 CBC (INCL UDES DIFF/ PLT) MCV 89.8 fL 80.0-1 00.0 normal Not Available [address], [address], 01/08/2024 13:48:19 01/07/20 24 01/08/2024 CBC (INCL UDES DIFF/ PLT) MCH 29.5 pg 27.0-3 3.0 normal Not Available [address], [address], 01/08/2024 13:48:19 01/07/20 24 01/08/2024 CBC (INCL UDES DIFF/ PLT) MCHC 32.9 g/dL 32.0-3 6.0 normal Not Available [address], [address], 01/08/2024 13:48:19 01/07/20 24 01/08/2024 CBC (INCL UDES DIFF/ PLT) RDW 12.6 % 11.0-1 5.0 normal Not Available [address], [address], 01/08/2024 13:48:19 01/07/20 24 01/08/2024 CBC (INCL UDES DIFF/ PLT) platelet count 266 thous and/u L 140-40 0 normal Not Available [address], [address], 01/08/2024 13:48:19 01/07/20 24 01/08/2024 CBC (INCL UDES DIFF/ PLT) MPV 11.5 fL 7.5-12 .5 normal Not Available [address], [address], 01/08/2024 13:48:19 01/07/20 24 01/08/2024 CBC (INCL UDES DIFF/ PLT) absolute neutrophils 7078 cells /uL 1500-7 800 normal Not Available [address], [address], 01/08/2024 13:48:19 01/07/20 24 01/08/2024 CBC (INCL UDES DIFF/ PLT) absolute lymphocytes 1438 cells /uL 850-39 00 normal Not Available [address], [address], 01/08/2024 13:48:19 01/07/20 24 01/08/2024 CBC (INCL UDES DIFF/ PLT) absolute monocytes 677 cells /uL 200-95 0 normal Not Available [address], [address], 01/08/2024 13:48:19 01/07/20 24 01/08/2024 CBC (INCL UDES DIFF/ PLT) absolute eosinophils 169 cells /uL 15-500 normal Not Available [address], [address], 01/08/2024 13:48:19 01/07/20 24 01/08/2024 CBC (INCL UDES DIFF/ PLT) absolute basophils 38 cells /uL 0-200 normal Not Available [facility] [address] [place], [address], 01/08/2024 13:48:19 01/07/20 24 01/08/2024 CBC (INCL UDES DIFF/ PLT) neutrophils 75.3 % normal Not Available [address], [address], 01/08/2024 13:48:19 01/07/20 24 01/08/2024 CBC (INCL UDES DIFF/ PLT) lymphocytes 15.3 % normal Not Available [facility] [address], [address], 01/08/2024 13:48:19 01/07/20 24 01/08/2024 CBC (INCL UDES DIFF/ PLT) monocytes 7.2 % normal Not Available [facility] [address], [address], 01/08/2024 13:48:19 01/07/20 24 01/08/2024 CBC (INCL UDES DIFF/ PLT) eosinophils 1.8 % normal Not Available [facility] [address], [address], 01/08/2024 13:48:19 01/07/20 24 01/08/2024 CBC (INCL UDES DIFF/ PLT) basophils 0.4 % normal Not Available [facility] [address], [address], 01/08/2024 13:48:19 01/07/20 24 01/08/2024 EMMANUELLE TIN ferritin 24 NG/mL 16-288 normal Not Available [address] [address] [place], [address], 01/08/2024 13:48:19 01/07/20 24 01/08/2024 T4, FREE T4, free 1.1 NG/dL 0.8-1. 8 normal Not Available [facility] [address], [address], 01/08/2024 13:48:20 01/07/20 24 01/08/2024 TSH TSH 4.27 mIU/L 0.40-4 .50 normal Not Available [facility] [address], [address], 01/08/2024 13:48:21 01/07/20 24 01/08/2024 VITAM IN D,25- OH,TO RANJANA,I A vitamin D,25-oh,tota l,ia 55 NG/mL 30-100 normal Vitam in D Statu s 25-OH Vitam in D: Defic iency : <20 ng/mL Insuf ficie ncy: 20 - 29 ng/mL Optim al: > or = 30 ng/mL For 25-OH Vitam in D testi ng on patie nts on D2-mcghee pplem entat ion and patie nts for whom quant itati on of D2 and D3 fract ions is requi red, the [facility] eD(TM ) 25-OH VIT D, (D2,D 3), LC/MS /MS is recom hilda d: order code 24159 (rebeka ents >2yrs ). See Note 1 Note 1 For addit ional infor cathi sierra refer to http: //annie baltazar ics.c om/fa q/FAQ 199 (This link is being provi ded for infor consuelo ngo/ david joseph purpo ses only. ) Not Available [address] [address] [place], [address], 01/08/2024 13:48:21 07/20/2007/21/2024 LIPID PANEL , STAND JORGE cholesterol, total 218 mg/dL <200 high Not Available [address], [address], 07/21/2024 08:10:53 07/20/2007/21/2024 LIPID PANEL , STAND JORGE HDL cholesterol 57 mg/dL > or = 50 normal Not Available [address], [address], 07/21/2024 08:10:53 07/20/2007/21/2024 LIPID PANEL , STAND JORGE triglyceride s 211 mg/dL <150 high If a non-f astin g speci men was colle cted, consi nataliia repea t trigl yceri de testi ng on a fasti ng speci men if clini ayush indic ated. Spike armstrong et al. J. of Clin. Lipid ol. 2015; 9:129 -169. Not Available [address], [address], 07/21/2024 08:10:53 07/20/2007/21/2024 LIPID PANEL , STAND JORGE LDL-choleste rol 126 mg/dL _(antolin c) high Refer ence range : <100 Mejia able range <100 mg/dL for prima ry preve ntion ; <70 mg/dL for patie nts with CHD or diabe tic patie nts with > or = 2 CHD risk facto rs. LDL-C is now calcu lated using the Amy n-Hop kins calcu latcamila n, which is a valid ated novel charity ibarra than the Fried remy equat ion in the estim ation of LDL-C . Amy wood SS et al. MILADY. 2013; 310(1 9): 2061- 2068 (http ://ed ucati on.Qu estDi agnos tics. com/f aq/FA Q164) Not Available [address] [place], [address], 07/21/2024 08:10:53 07/20/20 24 07/21/2024 LIPID PANEL , STAND JORGE chol/HDLC ratio 3.8 (calc ) <5.0 normal Not Available [address], [address], 07/21/2024 08:10:53 07/20/2007/21/2024 LIPID PANEL , STAND JORGE non HDL cholesterol 161 mg/dL _(antolin c) <130 high For patie nts with diabe darcie plus 1 major ASCVD risk facto r, treat ing to a non-H DL-C goal of <100 mg/dL (LDL- C of <70 mg/dL ) is edvin rivero optio n. Not Available [address], [address], 07/21/2024 08:10:53 07/20/20 24 07/21/2024 IRON AND TOTAL IRON DELORES NG CAPAC ITY iron, total 125 mcg/d L 45-160 normal Not Available [address], [address], 07/21/2024 08:10:54 07/20/20 24 07/21/2024 IRON AND TOTAL IRON DELORES NG CAPAC ITY iron binding capacity 348 mcg/d L_(ca lc) 250-45 0 normal Not Available [address], [address], 07/21/2024 08:10:54 07/20/20 24 07/21/2024 IRON AND TOTAL IRON DELORES NG CAPAC ITY % saturation 36 %_(ca lc) 16-45 normal Not Available [address], [address], 07/21/2024 08:10:54 07/20/20 24 07/21/2024 BASIC METAB OLIC PANEL glucose 93 mg/dL 65-99 normal Fasti ng refer ence inter ivette Not Available [address] [address] [place], [address], 07/21/2024 08:10:56 07/20/20 24 07/21/2024 BASIC METAB OLIC PANEL urea nitrogen (BUN) 19 mg/dL 7-25 normal Not Available [address], [address], 07/21/2024 08:10:56 07/20/20 24 07/21/2024 BASIC METAB OLIC PANEL creatinine 0.63 mg/dL 0.50-1 .05 normal Not Available [address], [address], 07/21/2024 08:10:56 07/20/20 24 07/21/2024 BASIC METAB OLIC PANEL eGFR 97 mL/mi n/1.7 3m2 > or = 60 normal Not Available [address] [address] [place], [address], 07/21/2024 08:10:56 07/20/2007/21/2024 BASIC METAB OLIC PANEL BUN/creatini ne ratio SEE NOTE: (calc ) 6-22 Not Repor nel: BUN and Creat inine are withi n refer ence range . Not Available [address], [address], 07/21/2024 08:10:56 07/20/20 24 07/21/2024 BASIC METAB OLIC PANEL sodium 140 mmol/ L 135-14 6 normal Not Available [facility] [address] [address] [place], [address], 07/21/2024 08:10:56 07/20/20 24 07/21/2024 BASIC METAB OLIC PANEL potassium 4.2 mmol/ L 3.5-5. 3 normal Not Available [facility] [address] [address] [place], [address], 07/21/2024 08:10:56 07/20/20 24 07/21/2024 BASIC METAB OLIC PANEL chloride 103 mmol/ L 98-110 normal Not Available [address], [address], 07/21/2024 08:10:56 07/20/20 24 07/21/2024 BASIC METAB OLIC PANEL carbon dioxide 28 mmol/ L 20-32 normal Not Available [address], [address], 07/21/2024 08:10:56 07/20/2007/21/2024 BASIC METAB OLIC PANEL calcium 9.0 mg/dL 8.6-10 .4 normal Not Available [address], [address], 07/21/2024 08:10:56 07/20/20 24 07/21/2024 HEPAT IC FUNCT ION PANEL protein, total 6.3 g/dL 6.1-8. 1 normal Not Available [address], [address], 07/21/2024 08:10:57 07/20/20 24 07/21/2024 HEPAT IC FUNCT ION PANEL albumin 4.0 g/dL 3.6-5. 1 normal Not Available [address], [address], 07/21/2024 08:10:57 07/20/20 24 07/21/2024 HEPAT IC FUNCT ION PANEL globulin 2.3 g/dL_ (calc ) 1.9-3. 7 normal Not Available [address], [address], 07/21/2024 08:10:57 07/20/20 24 07/21/2024 HEPAT IC FUNCT ION PANEL albumin/glob ulin ratio 1.7 (calc ) 1.0-2. 5 normal Not Available [facility] [address], [address], 07/21/2024 08:10:57 07/20/2007/21/2024 HEPAT IC FUNCT ION PANEL bilirubin, total 0.5 mg/dL 0.2-1. 2 normal Not Available [address], [address], 07/21/2024 08:10:57 07/20/20 24 07/21/2024 HEPAT IC FUNCT ION PANEL bilirubin, direct 0.1 mg/dL < or = 0.2 normal Not Available [address], [address], 07/21/2024 08:10:57 07/20/2007/21/2024 HEPAT IC FUNCT ION PANEL bilirubin, indirect 0.4 mg/dL _(antolin c) 0.2-1. 2 normal Not Available [address], [address], 07/21/2024 08:10:57 07/20/20 24 07/21/2024 HEPAT IC FUNCT ION PANEL alkaline phosphatase 62 U/L 37-153 normal Not Available [address], [address], 07/21/2024 08:10:57 07/20/20 24 07/21/2024 HEPAT IC FUNCT ION PANEL AST 26 U/L 10-35 normal Not Available [address], [address], 07/21/2024 08:10:57 07/20/20 24 07/21/2024 HEPAT IC FUNCT ION PANEL ALT 24 U/L 6-29 normal Not Available [address], [address], 07/21/2024 08:10:57 07/20/20 24 07/21/2024 CBC (INCL UDES DIFF/ PLT) white blood cell count 6.0 thous and/u L 3.8-10 .8 normal Not Available [address], [address], 07/21/2024 08:10:58 07/20/20 24 07/21/2024 CBC (INCL UDES DIFF/ PLT) red blood cell count 4.95 maria teresa on/uL 3.80-5 .10 normal Not Available [address], [address], 07/21/2024 08:10:58 07/20/2007/21/2024 CBC (INCL UDES DIFF/ PLT) hemoglobin 14.7 g/dL 11.7-1 5.5 normal Not Available [address], [address], 07/21/2024 08:10:58 07/20/2007/21/2024 CBC (INCL UDES DIFF/ PLT) hematocrit 46.7 % 35.0-4 5.0 high Not Available [address], [address], 07/21/2024 08:10:58 07/20/20 24 07/21/2024 CBC (INCL UDES DIFF/ PLT) MCV 94.3 fL 80.0-1 00.0 normal Not Available [address], [address], 07/21/2024 08:10:58 07/20/20 24 07/21/2024 CBC (INCL UDES DIFF/ PLT) MCH 29.7 pg 27.0-3 3.0 normal Not Available [address], [address], 07/21/2024 08:10:58 07/20/20 24 07/21/2024 CBC (INCL UDES DIFF/ PLT) MCHC 31.5 g/dL 32.0-3 6.0 low For adult s, a sligh t decre ase in the calcu lated MCHC value (in the range of 30 to 32 g/dL) is most likel y not clini ayush hermosilloi tali t; wendy er, it shoul d be inter prete d with cauti on in [facility] n with other red cell alexus eters and the patie nt's clini antolin condi tion. Not Available [facility] [address], [address], 07/21/2024 08:10:58 07/20/2007/21/2024 CBC (INCL UDES DIFF/ PLT) RDW 12.8 % 11.0-1 5.0 normal Not Available [address], [address], 07/21/2024 08:10:58 07/20/2007/21/2024 CBC (INCL UDES DIFF/ PLT) platelet count 271 thous and/u L 140-40 0 normal Not Available [address], [address], 07/21/2024 08:10:58 07/20/2007/21/2024 CBC (INCL UDES DIFF/ PLT) MPV 10.7 fL 7.5-12 .5 normal Not Available [address], [address], 07/21/2024 08:10:58 07/20/2007/21/2024 CBC (INCL UDES DIFF/ PLT) absolute neutrophils 3048 cells /uL 1500-7 800 normal Not Available [facility] [address], [address], 07/21/2024 08:10:58 07/20/20 24 07/21/2024 CBC (INCL UDES DIFF/ PLT) absolute lymphocytes 1824 cells /uL 850-39 00 normal Not Available [facility] [address], [address], 07/21/2024 08:10:58 07/20/2007/21/2024 CBC (INCL UDES DIFF/ PLT) absolute monocytes 528 cells /uL 200-95 0 normal Not Available [address], [address], 07/21/2024 08:10:58 07/20/2007/21/2024 CBC (INCL UDES DIFF/ PLT) absolute eosinophils 552 cells /uL 15-500 high Not Available [address], [address], 07/21/2024 08:10:58 07/20/2007/21/2024 CBC (INCL UDES DIFF/ PLT) absolute basophils 48 cells /uL 0-200 normal Not Available [address], [address], 07/21/2024 08:10:58 07/20/2007/21/2024 CBC (INCL UDES DIFF/ PLT) neutrophils 50.8 % normal Not Available [facility] [address], [address], 07/21/2024 08:10:58 07/20/2007/21/2024 CBC (INCL UDES DIFF/ PLT) lymphocytes 30.4 % normal Not Available [address], [address], 07/21/2024 08:10:58 07/20/2007/21/2024 CBC (INCL UDES DIFF/ PLT) monocytes 8.8 % normal Not Available [facility] [address], [address], 07/21/2024 08:10:58 07/20/2007/21/2024 CBC (INCL UDES DIFF/ PLT) eosinophils 9.2 % normal Not Available [facility] [address], [address], 07/21/2024 08:10:58 07/20/20 24 07/21/2024 CBC (INCL UDES DIFF/ PLT) basophils 0.8 % normal Not Available [address], [address], 07/21/2024 08:10:58 07/20/20 24 07/21/2024 EMMANUELLE TIN ferritin 35 NG/mL 16-288 normal Not Available [address], [address], 07/21/2024 08:10:59 07/20/2007/21/2024 T4, FREE T4, free 1.0 NG/dL 0.8-1. 8 normal Not Available [address], [address], 07/21/2024 08:11:00 07/20/2007/21/2024 TSH TSH 8.89 mIU/L 0.40-4 .50 high Not Available [address], [address], 07/21/2024 08:11:01 07/20/2007/21/2024 VITAM IN D,25- OH,TO RANJANA,I A vitamin D,25-oh,tota l,ia 46 NG/mL 30-100 normal Vitam in D Statu s 25-OH Vitam in D: Defic iency : <20 ng/mL Insuf ficie ncy: 20 - 29 ng/mL Optim al: > or = 30 ng/mL For 25-OH Vitam in D testi ng on patie nts on D2-mcghee pplem entat ion and patie nts for whom quant itati on of D2 and D3 fract ions is requi red, the [facility] Ass[facility] eD(TM ) 25-OH VIT D, (D2,D 3), LC/MS /MS is recom hilda d: order code 14607 (rebeka ents >2yrs ). See Note 1 Note 1 For addit ional infor cathi sierra e refer to http: //annie wood.Que stDia gnost ics.c om/fa q/FAQ 199 (This link is being provi ded for infor consuelo nal/ educa kiet l purpo ses only. ) Not Available [facility] [address], [place], [address], 07/21/2024 08:11:02 03/27/20 23 03/27/2023 XR, chest , 2 view No observ ation record ed. [facility] [address] [place], [address], 04/07/2023 12:09:05 03/18/20 24 03/18/2024 MAMMO , scree nathan, digit al, bilat eral No observ ation record ed. [email or web address] [address] [place], [address], 04/05/2024 10:32:49 03/18/20 24 03/18/2024 DEXA No observ ation record ed. [email or web address] [address] [place], [address], 04/05/2024 10:32:49 05/13/20 24 05/13/2024 MAMMO , diagn ostic , digit al, bilat eral No observ ation record ed. [facility] [address] [place], [address], 05/14/2024 10:44:02 05/13/20 24 05/13/2024 imagi ng/di agnos tic resul t No observ ation record ed. [address] [place], [address], 06/07/2024 15:20:22 Result Notes None recorded. Problems Name Problem SNOMED Code Status Onset Date Resolution Date Notes Provider Name and Address Organization Details Recorded Time Neuropathy 646905943 Active Not Available [facility] 3 22:51:09 Hypothyroi dism 54499317 Active Not Available [facility] 3 22:51:09 Dysuria 01611300 Active Not Available [facility] 3 22:51:09 Cough 73182187 Active Not Available [facility] 3 22:51:09 Hyperlipid emia 89838538 Active 2015 Not Available [facility] 3 22:51:09 Osteoporos is 96500595 Active Not Available [facility] 3 22:51:09 Urinary tract infectious disease 93442919 Active Not Available [facility] 3 22:51:09 Pain of right knee joint 7344983214960 00 Active 2022 Not Available [facility] 3 22:51:09 Tear of medial meniscus of knee 488717315 Active 2022 Not Available [facility] 3 22:51:09 Tear of lateral meniscus of knee 436423363 Active 2022 Not Available [facility] 3 22:51:09 Iron deficiency anemia 96734528 Active 2022 Not Available [facility] 3 22:51:09 Acute sinusitis 79487879 Active 2022 Not Available [facility] 3 22:51:09 Allergic rhinitis 13268849 Active 2022 Magalys Gonzales MD [address], [address], [address] , [employer] [facility] [employer] [facility] 3 18:00:46 Anxiety 51365531 Active 2022 Magalys Gonzlaes MD [address] [place] [address], [place], [address] , [employer] [facility] 3 19:24:37 Dyspnea 247871360 Active 2022 Magalys Gonzales MD [address], [address] , [employer] [facility] 3 12:39:25 Vitamin D deficiency 28598924 Active 2022 Magalys Gonzales MD [address], [address] , [facility] [employer] [facility] [facility] 3 11:35:47 Dry eyes [id number] Active 2023 Magalys Gonzales MD [address], [address], [place], [address] , [facility] [employer] [facility] [employer] [facility] 4 15:25:36 Osteopenia 449633006 Active 2023 Magalys Gonzales MD [address] [facility] [address], [place], [address] , [facility] [employer] [facility] [employer] [facility] 4 15:25:43 Mammograph y abnormal [id number] Active 2023 CHARLIE Stark [address] [facility] [employer], [address] [address], [place], [address] , [facility] [employer] [facility] [employer] 4 14:59:28 Insomnia 619105747 Active 2023 CHARLIE Stark [address] [facility] [employer], [address] [address], [place], [address] , [facility] [employer] [facility] [employer] [facility] 4 15:00:02 Essential hypertensi on 64351508 Active 2023 Lana robins, [place] [employer] [facility] [employer] [facility] 4 09:54:19 Notes:Some problems listed i n Document: #[id number] could not be added to this patient's chart. Please review this document and add these problems to the patient's chart manually as needed. Problem Notes None recorded. Procedures Surgical History Date Name Laterality Status Provider Name and Address Organization Details Recorded Time 4 Medicare Wellness CPT Code, subsequent completed Haydee Sun RN [facility] 12/23/2023 14:59:59 4 Medicare Wellness CPT Code, Initial completed Abby Fairbanks RN [facility] 11/20/2023 15:21:07 3 Ortho - Cortisone Injection completed Sundeep James MD [address] [facility] [address] [facility], [address], [place], [address], [facility] [employer] [facility] [employer] [facility] 12/03/2022 15:40:10 3 Date of Last Mammogram completed Nathaly Ruiz APRN [address], [address], [place], [address], [facility] [employer] [facility] 05/03/2024 14:41:20 3 Most Recent Mammogram completed Nathaly Ruiz APRN [address], [address], [place], [address], [facility] [employer] [facility] 05/03/2024 14:41:20 Imaging Results Imaging Date Name Status LastModified by Organiz ation Details LastModified Time 03/27/2023 XR, chest, 2 view completed [facility] [address] [place], [address], 04/07/2023 12:09:05 03/18/2024 MAMMO, screening, digital, bilateral completed [email or web address] [place], [address], 04/05/2024 10:32:49 03/18/2024 DEXA completed [address] [place], [address], 04/05/2024 10:32:49 05/13/2024 MAMMO, diagnostic, digital, bilateral completed [email or web address] [address] [place], [address], 05/14/2024 10:44:02 05/13/2024 imaging/diagno stic result completed [address] [place], [address], 06/07/2024 15:20:22 Procedure Notes None recorded. Medical Equipment None Reported. Allergies Allergen ID Allergen Name Allergen Category Reaction Reaction Severity Criticality Documentation Date Start Date Code Code System Note Provider Name and Address Organization Details Recorded Time 58007 Xiidra medicatio n rash moderate Not available 11/20/2022 72758 36 RxNorm blist ered chest Not Available [facility] 3 06:20:28 68036 tetracycl ine medicatio n nausea Not available Not available 11/20/2022 82417 RxNorm Not Available [facility] 3 06:20:28 26281 Product containin g 3-hydroxy -3-methyl glutaryl- coenzyme A reductase inhibitor (product) medicatio n Not available Not available Not available 11/20/2022 26536 009 SNOMED Not Available [facility] 3 06:20:29 27713 pravastat in medicatio n myalgias (muscle pain) Not available Not available 11/20/2022 16142 RxNorm Not Available [facility] 3 06:20:29 20913 Lipitor medicatio n myalgias (muscle pain) Not available Not available 11/20/2022 91801 5 RxNorm Not Available [facility] 3 06:20:29 90156 Levaquin medicatio n diarrhea Not available Not available 11/20/2022 61649 2 RxNorm Not Available [facility] 3 06:20:29 98932 erythromy nolberto medicatio n nausea Not available Not available 11/20/2022 4053 RxNorm can take zpack Not Available [facility] 3 06:20:29 03872 Cymbalta medicatio n Not available Not available Not available 11/20/2022 54397 4 RxNorm depre ssion Not Available [facility] 3 06:20:29 89383 Celebrex medicatio n diarrhea Not available Not available 11/20/2022 82845 7 RxNorm Not Available [facility] 3 06:20:29 57881 cefdinir medicatio n Not available Not available Not available 11/20/2022 40905 RxNorm fishy disch arge Not Available [facility] 3 06:20:29 52241 Bextra medicatio n diarrhea Not available Not available 11/20/2022 00078 0 RxNorm Not Available [facility] 3 06:20:29 06419 Avelox medicatio n nausea Not available Not available 11/20/2022 55465 6 RxNorm Not Available [facility] 3 06:20:30 71074 amitripty line medicatio n Not available Not available Not available 11/20/2022 704 RxNorm depre ssion Not Available [facility] 3 06:20:30 Medications Name Sig Start Date Stop Date Status Note LastModified by Organization Details LastModified Time cyclobenz aprine 10 mg tablet 11/25 completed Not Available Not Available Not Available furosemid e 40 mg tablet 1 tab po qday prn active Not Available Not Available No t Available [place] Thyroid 60 mg tablet TAKE 1 TABLET DAILY 05/17 completed Not Available Not Available Not Available azelastin e 0.05 % eye drops active Not Available Not Available No t Available prednison e 10 mg tablet 12/11 completed Not Available Not Available Not Available bumetanid e 2 mg tablet TAKE 1 TABLET(S ) EVERY DAY BY ORAL ROUTE. active Not Available Not Available No t Available clindamyc in HCl 300 mg capsule Take 1 capsule every 6 hours by oral route for 10 days. active Not Available Not Available No t Available trazodone 50 mg tablet active Not Available Not Available Not Available azithromy nolberto 250 mg tablet Take 2 TABLET EVERY DAY by oral route for 1 day. Than 1 tablet for 4 days 06/04 completed Not Available Not Available Not Available benzonata te 200 mg capsule 05/14 completed Not Available Not Available Not Available doxepin 25 mg capsule TAKE 2 CAPSULE BY MOUTH EVERY NIGHT AT BEDTIME active Not Available Not Available No t Available hydrocodo ne 5 mg-acetam inophen 325 mg tablet 06/04 completed Not Available Not Available Not Available prednison e 20 mg tablet Take 2 tabs PO twice daily for 2 days; 1 tab PO twice daily for 5 days; 1/2 tab PO twice daily for 2 days; 1/2 tab PO once for 1 day. TAKE 2ND DOSE EVERYDAY AT NOON-10 DAY COURSE 06/04 completed Not Available Not Available Not Available Maxidex 0.1 % eye drops,ejsus pension INSTILL 1 DROP INTO AFFECTED EYE(S) BY OPHTHALM IC ROUTE 4 TIMES PER DAY 12/03 completed Not Available Not Available Not Available alendrona te 70 mg tablet Take 1 tablet every week by oral route for 28 days. 06/04 completed Not Available Not Available Not Available clonazepa m 0.5 mg tablet TAKE ONE (1) TABLET BY DAILY NEEDED. active Not Available Not Available No t Available clonazepa m 1 mg tablet 11/12 completed Not Available Not Available Not Available metronida zole 500 mg tablet 06/03 completed Not Available Not Available Not Available acetamino phen 300 mg-codein e 30 mg tablet 11/25 completed Not Available Not Available Not Available omeprazol e 40 mg capsule,d elayed release Take 1 capsule every day by oral route. 07/12 completed Not Available Not Available Not Available liothyron ine 5 mcg tablet TAKE 1 TABLET BY MOUTH EVERY DAY 10/01 completed Not Available Not Available Not Available tramadol 50 mg tablet 11/25 completed Not Available Not Available Not Available levothyro xine 75 mcg tablet Take 1 tablet every day by oral route. 07/29 completed Not Available Not Available Not Available prednison e 10 mg tablets in a dose pack Take 1 tab by mouth, 3 times a day for 3 daysTake 1 tab by mouth 2 times a day for 2 daysTake 1 tab by mouth once a day for 1 day 12/11 completed Not Available Not Available Not Available meloxicam 7.5 mg tablet Take 1 tablet(s ) twice a day by oral route as needed. 12/03 completed Not Available Not Available Not Available [place] Thyroid 15 mg tablet TAKE ONE TABLET BY MOUTH DAILY WITH 30 MG TAB 05/30 completed Not Available Not Available Not Available Lacrisert 5 mg eye inserts active Not Available Not Available Not Available amoxicill in 875 mg tablet Take 1 tablet every 12 hours by oral route for 7 days. 04/05 completed Not Available Not Available Not Available prednisol one acetate 1 % eye drops,jesus pension 05/11 completed Not Available Not Available Not Available triamcino lone acetonide 0.1 % dental paste APPLY WITH A SWAB TO AFFECTED AREA(S) THREE TO FOUR TIMES DAILY active Not Available Not Available No t Available trazodone 100 mg tablet TAKE 1 OR 2 TABLETS BY MOUTH AT BEDTIME active Not Available Not Available No t Available ciproflox acin 0.3 % eye drops 12/03 completed Not Available Not Available Not Available Kenalog 10 mg/mL suspensio n for injection Take 20 mg by injectio n route. 12/11 completed [facility]: [phone] 4-20 Not Available Not Available Not Available diazepam 2 mg tablet TAKE ONE TABLET BY MOUTH THREE TIMES a DAY NEEDED 06/24 completed Not Available Not Available Not Available ferrous sulfate 325 mg (65 mg iron) tablet 1 po qday 12/03 completed Not Available Not Available Not Available triamcino lone acetonide 0.1 % topical ointment APPLY A THIN LAYER TO THE AFFECTED AREA(S) BY TOPICAL ROUTE 2 TIMES PER DAY x 7 days 11/12 completed Not Available Not Available Not Available triamcino lone acetonide 55 mcg nasal spray aerosol Coalfield 2 sprays every day by intranas al route. 02/13 completed Not Available Not Available Not Available polymyxin B sulfate 10,000 unit-trim ethoprim 1 mg/mL eye drops active Not Available Not Available No t Available monteluka st 10 mg tablet 1 po qday active Not Available Not Available No t Available zolpidem 5 mg tablet active Not Available Not Available Not Available [place] Thyroid 30 mg tablet TAKE ONE TABLET BY MOUTH DAILY WITH 15 MG TAB 05/30 completed Not Available Not Available Not Available zaleplon 5 mg capsule 1-2 po qhs prn 05/15 completed Not Available Not Available Not Available azelastin e 137 mcg (0.1 %) nasal spray 2 sprays IEN twice daily active Not Available Not Available No t Available diazepam 10 mg tablet Take 1 tablet 3 times a day by oral route. 2024 active Not Available Not Available Not Avai lable zolpidem 10 mg tablet 1 po qhs prn insomnia active Not Available Not Available No t Available methylpre dnisolone 4 mg tablets in a dose pack Take 1 dose pk every day by oral route as directed for 6 days. 11/06 completed Not Available Not Available Not Available hydrocodo ne 10 mg-chlorp heniramin e 8 mg/5 mL oral susp extend.re l 12hr Take 5 mL every 12 hours by oral route as needed. 06/04 completed Not Available Not Available Not Available albuterol sulfate HFA 90 mcg/actua tion aerosol inhaler Inhale 2 puffs every 4 hours by inhalati on route as needed. active Not Available Not Available No t Available cefdinir 300 mg capsule 06/03 completed Not Available Not Available Not Available fluticaso ne propionat e 50 mcg/actua tion nasal spray,jesus pension USE TWO (2) SPRAY(S) EACH NOSTRIL ONE TIME DAILY active Not Available Not Available No t Available amoxicill in 875 mg-potass ium clavulana te 125 mg tablet Take 1 tablet every 12 hours by oral route for 7 days. active Not Available Not Available No t Available neomycin 3.5 mg/g-poly myxin B 10,000 unit/g-de xameth 0.1 % eye oint 09/02 completed Not Available Not Available Not Available Estrace 0.01% (0.1 mg/gram) vaginal cream INSERT 1 GRAM VAGINALL Y 2 TIMES A WEEK active Not Available Not Available No t Available Restasis 0.05 % eye drops in a dropperet te 06/04 completed Not Available Not Available Not Available rosuvasta tin 10 mg tablet 1 po qhs active Not Available Not Available Not Available rosuvasta tin 20 mg tablet 12/25 completed 5 mg twice per week due to myalgia Not Available Not Available Not Available nitrofura ntoin monohydra te/macroc rystals 100 mg capsule Take 1 capsule every 12 hours by oral route for 5 days. active Not Available Not Available No t Available eszopiclo ne 3 mg tablet Take 1 tablet every day by oral route at bedtime. active Not Available Not Available No t Available eszopiclo ne 2 mg tablet Take 1 tablet every day by oral route at bedtime. active Not Available Not Available No t Available Voltaren 05/15 completed Not Available Not Available Not Available Denavir 05/15 completed Not Available Not Available Not Available omeprazol e 1 tab every day 07/12 completed Not Available Not Available Not Available diazepam 05/15 completed Not Available Not Available Not Available Aspir-81 2018 active Not Available Not Available Not Avai lable Singulair 05/15 completed Not Available Not Available Not Available azelastin e 05/15 completed Not Available Not Available Not Available Viactiv 05/15 completed Not Available Not Available Not Available Restasis 05/15 completed Not Available Not Available Not Available Crestor 10 mg twice per week 05/15 completed Not Available Not Available Not Available triamcino lone (bulk) 05/15 completed Not Available Not Available Not Available lidocaine (PF) 10 mg/mL (1 %) injection solution In office injectio n administ ered by the provider 05/15 completed [facility]: [phone] Not Available Not Available Not Available CoQ-10 2018 active Not Available Not Available Not Avai lable levocetir izine 5 mg tablet TAKE 1 TABLET BY MOUTH DAILY active Not Available Not Available No t Available levocetir izine 1 po qday 10/06 completed Not Available Not Available Not Available diclofena c 1 % topical gel APPLY 2 GRAMS TO THE AFFECTED AREA(S) BY TOPICAL ROUTE 4 TIMES PER DAY 06/04 completed Not Available Not Available Not Available azelastin e 205.5 mcg (0.15 %) nasal spray 2 sprays each nostril qd prn 05/15 completed Not Available Not Available Not Available Prolia 60 mg/mL subcutane ous syringe Inject 1ml subcutan eously every 6 months active Not Available Not Available No t Available ropivacai ne (PF) 5 mg/mL (0.5 %) injection solution Take 20 mg by injectio n route. 12/11 completed Not Available Not Available Not Available Vascepa 1 gram capsule 2 po bid active Not Available Not Available Not Available Belsomra 10 mg tablet 1 po 30 minutes before bedtime with food prn insomnia active Not Available Not Available No t Available Flonase Allergy Relief 05/15 completed Not Available Not Available Not Available Pazeo 0.7 % eye drops 10/06 completed Not Available Not Available Not Available Vitals Date Recorded Body height Provider Name an d Address Organization Details Last Updated DateTime 03/20/2023 154.94 cm XIN Casarez [employer] [facility] 03/20/2023 12:18:35 Date Recorded Body mass index (BMI) Body weight Provider Name and Address Organization Details Last Updated DateTime 03/20/2023 27.4 kg/m2 75231.89 g XIN Casarez Ann [facility] 03/20/2023 12:18:50 Date Recorded Body temperature Provider Name a nd Address Organization Details Last Updated DateTime 03/20/2023 97.2 [degF] XIN Casarez Ann [employer] [facility] 03/20/2023 12:19:02 Date Recorded Heart rate Provider Name an d Address Organization Details Last Updated DateTime 03/20/2023 78 /min XIN Casarez Ann [employer] [facility] 03/20/2023 12:19:06 Date Recorded Oxygen saturation Oxygen saturation in Arterial blood by Pulse oximetry Provider Name and Address Organization Details Last Updated DateTime 03/20/2023 97 % 97 % XIN Casarez Ann [facility] 03/20/2023 12:19:50 Date Recorded Body height Provider Name an d Address Organization Details Last Updated DateTime 06/24/2023 154.94 cm XIN Casarez Ann [employer] [facility] 06/24/2023 12:01:39 Date Recorded Body mass index (BMI) Body weight Provider Name and Address Organization Details Last Updated DateTime 06/24/2023 28 kg/m2 01118.67 g XIN Casarez [facility] 06/24/2023 12:03:02 Date Recorded Body temperature Provider Name a nd Address Organization Details Last Updated DateTime 06/24/2023 97.6 [degF] XIN Casarez Ann [employer] [facility] 06/24/2023 12:03:18 Date Recorded Heart rate Provider Name an d Address Organization Details Last Updated DateTime 06/24/2023 76 /min XIN Casarez Ann [employer] [facility] 06/24/2023 12:03:32 Date Recorded Oxygen saturation Oxygen saturation in Arterial blood by Pulse oximetry Provider Name and Address Organization Details Last Updated DateTime 06/24/2023 97 % 97 % XIN Casarez Ann [facility] 06/24/2023 12:04:09 Date Recorded Body height Provider Name an d Address Organization Details Last Updated DateTime 11/20/2023 154.94 cm XIN Thorpe [employer] [facility] 11/20/2023 15:06:33 Date Recorded Body mass index (BMI) Body weight Provider Name and Address Organization Details Last Updated DateTime 11/20/2023 28.9 kg/m2 84018.63 g XIN Thorpe Ann [facility] 11/20/2023 15:06:39 Date Recorded Body temperature Provider Name a nd Address Organization Details Last Updated DateTime 11/20/2023 98 [degF] XIN Thorpe Ann [employer] [facility] 11/20/2023 15:07:27 Date Recorded Heart rate Provider Name an d Address Organization Details Last Updated DateTime 11/20/2023 82 /min XIN Thorpe [employer] [facility] 11/20/2023 15:07:33 Date Recorded Oxygen saturation Oxygen saturation in Arterial blood by Pulse oximetry Provider Name and Address Organization Details Last Updated DateTime 11/20/2023 96 % 96 % XIN Thorpe [employer] 11/20/2023 15:07:36 Date Recorded Pain severity - 0-10 verbal numeric rating [Score] - Reported Provider Name and Address Organization Details Last Updated DateTime 11/20/202325 December XIN Fairbanks [facility] [employer] 11/20/2023 15:21:36 Date Recorded Body height Provider Name an d Address Organization Details Last Updated DateTime 12/23/2023 154.94 cm XIN Casarez Ann [employer] [facility] 12/23/2023 15:01:06 Date Recorded Body mass index (BMI) Body weight Provider Name and Address Organization Details Last Updated DateTime 12/23/2023 28.5 kg/m2 12525.45 g XIN Casarez Ann [facility] 12/23/2023 15:01:21 Date Recorded Body temperature Provider Name a nd Address Organization Details Last Updated DateTime 12/23/2023 97.8 [degF] XIN Casarez [facility] [employer] [facility] 12/23/2023 15:01:23 Date Recorded Heart rate Provider Name an d Address Organization Details Last Updated DateTime 12/23/2023 71 /min XIN Casarez Ann [facility] [employer] [facility] 12/23/2023 15:02:17 Date Recorded Oxygen saturation Oxygen saturation in Arterial blood by Pulse oximetry Provider Name and Address Organization Details Last Updated DateTime 12/23/2023 95 % 95 % XIN Casarez Ann [place] [employer] [facility] 12/23/2023 15:02:19 Date Recorded Body height Provider Name an d Address Organization Details Last Updated DateTime 06/04/2024 154.94 cm XIN Thorpe [facility] [employer] [facility] 06/04/2024 14:28:46 Date Recorded Body mass index (BMI) Body weight Provider Name and Address Organization Details Last Updated DateTime 06/04/2024 28.7 kg/m2 [address]125[address] [facility] [employer] [facility] 06/04/2024 14:32:39 Date Recorded Body temperature Provider Name a nd Address Organization Details Last Updated DateTime 06/04/2024 98.1 [degF] [facility] [employer] [facility] 06/04/2024 14:32:47 Date Recorded Heart rate Provider Name an d Address Organization Details Last Updated DateTime 06/04/2024 76 /min XIN Thorpe [facility] [employer] [facility] 06/04/2024 14:32:52 Date Recorded Systolic blood pressure Diastolic blood pressure Provider Name and Address Organization Details Last Updated DateTime 03/20/2023 128 mm[Hg] 74 mm[Hg] XIN Casarez Ann [employer] [facility] 03/20/2023 12:19:56 Date Recorded Systolic blood pressure Diastolic blood pressure Provider Name and Address Organization Details Last Updated DateTime 06/24/2023 126 mm[Hg] 72 mm[Hg] XIN Casarez Ann [place] [employer] [facility] 06/24/2023 12:04:16 Date Recorded Systolic blood pressure Diastolic blood pressure Provider Name and Address Organization Details Last Updated DateTime 11/20/2023 146 mm[Hg] 86 mm[Hg] XIN Thorpe Ann [employer] [facility] 11/20/2023 15:09:25 Date Recorded Systolic blood pressure Diastolic blood pressure Provider Name and Address Organization Details Last Updated DateTime 12/23/2023 140 mm[Hg] 76 mm[Hg] Haydee Sun RN [facility] [employer] 12/23/2023 15:02:14 Date Recorded Systolic blood pressure Diastolic blood pressure Provider Name and Address Organization Details Last Updated DateTime 06/04/2024 144 mm[Hg] 86 mm[Hg] Archana Milton RN [facility] [employer] 06/04/2024 14:33:00 Social History Question Answer Notes LastModified by Organizat ion Details LastModified Time Tobacco Smoking Status Never Smoker Cat Gerber, TATYANA L null, [facility] [employer] 12/03/2022 15:23:30 Do You Have An Advance Directive? Yes Information not available 05/03/2024 What Is Your Level Of Alcohol Consumption? Occasional [email or web address] Information not available 12/03/2022 What Is Your Level Of Caffeine Consumption? Moderate Information not available 05/03/2024 What Type Of Diet Are You Following? REGULAR Information not available 05/03/2024 What Was The Date Of Your Most Recent Tobacco Screening? 11/20/2023 Information not available 11/20/2023 What Is Your Relationship Status? Information not available 05/03/2024 Do You Or Have You Ever Used Smokeless Tobacco? Never Used Smokeless Tobacco Information not available 05/03/2024 Sex: Unknown Functional Status Question Answer Note LastModified by Organization D etails LastModified Time What is your exercise level? Moderate Information not available 05/03/2024 Mental Status None recorded. Family History Relationship Description Onset Age of this Age Resolved Age Notes LastModified by Organization Details LastModified Time Unspecified Relation Anemia [email or web address] Not available 12/03 15:23:09 Medical History Condition Response OSTEOPOROSIS Y OTHER # 1 Y ASTHMA Y HIGH CHOLESTEROL / HYPERLIPIDEMIA Y Gynecological History Statement/Question Response STIs/STDs N Abnormal Pap N If Post Menopausal, Age at Menopause 53 Date of Last Mammogram 10/18/2022 Most Recent Mammogram 10/18/2022 Sexually Active? Y N Obstetrics History GPAL:G 0 P 0 0 0 0 Immunizations Vaccine Type Date Status Note Provider Nam e and Address Organization Details Recorded Time COVID-19 mRNA, bivalent, original/Omicr on BA.1, Non-[place] Vaccine Product, Pfizer-BioNTec h 12/25/2020 completed Nathaly Ruiz APRN [address], [address], [place], [address], [place] [facility] [employer] [facility] 05/03/2024 14:40:56 Influenza, high-dose, quadrivalent, PF 06/18/2023 completed Nathaly Ruiz APRN [address], [address], [place], [address], [facility] [employer] [facility] 05/03/2024 14:41:32 COVID-19, mRNA, LNP-S, PF, 30 mcg/0.3 mL dose 12/25/2020 completed Nathaly Ruiz APRN [address], [address], [place], [address], [facility] [employer] [facility] 05/03/2024 14:42:09 COVID-19, mRNA, LNP-S, PF, 30 mcg/0.3 mL dose 01/18/2021 completed Nathaly Ruiz APRN [address], [address], [place], [address], [facility] [employer] [facility] 05/03/2024 14:42:09 COVID-19, mRNA, LNP-S, PF, 30 mcg/0.3 mL dose 08/27/2021 completed Nathaly Ruiz APRN [address], [address], [place], [address], [facility] [employer] [facility] 05/03/2024 14:42:09 COVID-19, mRNA, LNP-S, bivalent, PF, 30 mcg/0.3 mL dose 06/13/2022 completed Nathaly Ruiz APRN [address], [address], [place], [address], [facility] [employer] [facility] 05/03/2024 14:42:09 COVID-19, mRNA, LNP-S, bivalent, PF, 30 mcg/0.3 mL dose 01/18/2021 completed Nathaly Ruiz APRN [address], [address], [place], [place], [address] [place] [address], [facility] [employer] [facility] 05/03/2024 14:42:09 COVID-19, mRNA, LNP-S, bivalent, PF, 10 mcg/0.2 mL dose 08/27/2021 completed Nathaly Ruiz APRN [address], [address], [place], [place], [address] [place] [address], [facility] [employer] [facility] 05/03/2024 14:42:09 COVID-19, mRNA, LNP-S, bivalent, PF, 10 mcg/0.2 mL 06/13/2022 completed Nathaly Ruiz APRN [address], [facility] [address], [place], [place], [address] [place] [address], [facility] [employer] [facility] 05/03/2024 14:42:09 COVID-19, mRNA, LNP-S, bivalent, PF, 3 mcg/0.2 mL dose 12/25/2020 charles Ruiz APRN [address], [facility] [address], [place], [place], [address] [place] [address], [facility] [employer] [facility] 05/03/2024 14:42:09 Past Encounters Encounter ID Performer Location Encounter Start Date Encounter Closed Date Diagnosis/Indication Diagnosis SNOMED-CT Code Diagnosis ICD10 Code Diagnosis Note [id number] [facility] [address] [place] [address] 05/14/2021 00:00:00 05/14/2021 13:30:04 [id number] [facility] [address] [place] [address] 05/15/2022 00:00:00 05/21/2022 18:59:33 [id number] [facility] [address] [place] [address] 10/15/2022 00:00:00 10/21/2022 18:33:05 [id number] Sundeep aJmes MD [facility] [place] [address] [place] [address] 12/03/2022 14:51:36 12/03/2022 15:56:37 Pain of right knee joint 2329459119 94172 M25.561 Tear of me dial meniscus of knee 224779082 S83.241A [id number] Sundeep James MD [facility] [place] [address] [place] [address] 12/10/2022 15:08:23 12/10/2022 15:54:58 Tear of medial meniscus of knee 614965521 S83.241D Tear of la teral meniscus of knee 007748394 S83.281A [id number] Magalys Gonzales MD [facility] [place] [address] [place] [address] 12/11/2022 11:38:07 12/11/2022 12:34:24 Iron deficiency anemia 85729232 D50.9 remain on mvi with ironhemato logy referral givenEGD/c olonoscopy 11/27/22 no significan t findings [id number] Magalys Gonzales MD [facility] [place] [address] [place] [address] 03/20/2023 12:15:26 03/20/2023 12:47:55 Dyspnea 202808201 R06.00 Iron defic iency anemia 83019902 D50.9 remain on mvi with ironEGD/co lonoscopy 11/27/22 no significan t findingssa w hematology who wanted to observeche ck labs in 3 months [id number] Magalys Gonzales MD [facility] [place] [address] [facility] [place] [address] 06/24/2023 11:59:57 06/24/2023 12:42:52 Iron deficiency anemia 98962333 D50.9 remain on mvi with ironEGD/co lonoscopy 11/27/22 no significan t findingssa w hematology who wanted to observeche ck labs in 3 months update 06/24/23: Hemoglobin and iron elevated, pt symptomati cshe stopped the iron supplement and MVI 1 week agoremain off these supplement srecheck labs in 3 weeks Hyperlipidemia 67109189 E78.5 Z79.899 reviewed labscannot tolerate more than rosuvastat in 10 mg 3x per weekadd vascepa 1 gram 2 caps bid Gynecologi c examination 40916964 Z01.419 pap today Renewal of prescription 210648679 Z76.0 stable, refill given [id number] RENATE Joseph-Anuj [facility] [address] [place] [address] 11/20/2023 14:59:30 11/20/2023 15:46:26 Iron deficiency anemia 73151328 D50.9 -pt has been using multivitam in with iron (labs are wnl), plans to continue-n otes being on eating plan since 2106-has already f/u with hematologi st, no diagnosis- no further tx needed, continue to monitor Acute sinusitis 09651866 J01.90 -recently sick in September, kristine resolved the issue quickly-2 weeks later, she developed another sinus infection- has f/u with ENT in the past, noted small tube drainage - congestion , pressure, neck pain noted-nasa l irrigation up to 3 times/day when she gets these issues-req zithromax, given [id number] Magalys Gonzales MD [facility] [address] [place] [address] 12/23/2023 14:56:19 12/23/2023 15:48:48 Adult health examination 305185523 Z00.00 Z13.1 Pap/hpv normal 2022-may repeat in 3-5 years if desired, but further paps may not be needed due to ageMammogr am order givenCheck fasting labsDEXA repeat due-osteop eniaColono scopy 11/27/22, can repeat in 2032Flu vaccine yearlyReco mmend covid booster Screening mammography 24 916271 Z12.31 Postmenopausal state 764 92775 Z78.0 Hyperlipidemia 35718539 E78.5 Z79.899 cannot tolerate more than rosuvastat in 10 mg 3x per weekcontin ue vascepa 1 gram 2 caps bidcheck labs Hypothyroidism 90733862 E03.9 stable Iron defic iency anemia 35452207 D50.9 remain on mvi with ironEGD/co lonoscopy 11/27/22 no significan t findingssa w hematology who wanted to observeche ck labs in 3 months update 06/24/23: Hemoglobin and iron elevated, pt symptomati cshe stopped the iron supplement and MVI 1 week agoremain off these supplement srecheck labs in 3 weeks 12/23/23: Hemoglobin /hct mildly elevated but stableiron is stablecont inue mvi with ironrechec k labs Osteopenia 069453421 M85 .80 calcium + Dweight bearing exerciseDE XA ordered Vitamin D deficiency 347 17765 E55.9 Pain of ri ght knee joint 1436093428 88386 M25.561 will have right knee arthroscop y with Dr. Reyes gical clearance form given today Dry eyes 489106959 H04.1 23 will have tear duct cautery [id number] RENATE Stark-Anuj [facility] [address] [place] [address] 06/04/2024 14:26:58 06/04/2024 15:06:02 Hyperlipidemia 84588332 E78.5 Z79.899 cannot tolerate more than rosuvastat in 10 mg 3x per weekcontin ue vascepa 1 gram 2 caps bidcheck labs Hypothyroidism 74866821 E03.9 stable, will recheck labs as listed below. Iron defic iency anemia 46960418 D50.9 continues mvi with iron Vitamin D deficiency 347 80856 E55.9 Will check labs as listed below. Osteoporosis 38398194 M8 1.0 Did not tolerate Alendronat e.Wash on Reclast previously , will try Prolia. Insomnia 330259903 G47.0 0 Not sleeping well, maybe 3-4 hours/nigh t.Would like to try zolpidem again since it has been years since was last on it. Health Concerns Section Related Observation LastModified by Organization Detai ls LastModified Time None Recorded Concern Status LastModified by Organization Details LastModified Time None Recorded Advance Directives Directive Y: Payers Encounter Date Sequence Insurance Name Policy Number Policy Dai Covered Member ID Dai Member ID Guarantor Name 03/20/2023 1 [facility] (MEDICARE REPLACEMENT/A DVANTAGE - PPO) [id number] Mandi Bellamy Shahid [id number] Mandi Key 06/24/2023 1 [facility] (MEDICARE REPLACEMENT/A DVANTAGE - PPO) [id number] Mandi Bellamy Shahid [id number] Mandi Key 11/20/2023 1 [facility] (MEDICARE REPLACEMENT/A DVANTAGE - PPO) [id number] Mandi Bellamy Shahid [id number] Mandi Key 12/23/2023 1 [facility] (MEDICARE REPLACEMENT/A DVANTAGE - PPO) [id number] Mandi Bellamy Shahid [id number] Mandi Bellamy Shahid 06/04/2024 1 [facility] (MEDICARE REPLACEMENT/A DVANTAGE - PPO) [id number] Mandi Bellamy Shahid [id number] Mandi Key Notes Date Note Type Note Provider Name and Address Organization Details Recorded Time 03/20/2023 text/html here to f/u on iron deficiency anemia. Saw hematology, will do labs in 6 months. She has h/o asthma and was a little sob, no cough, no fever. Was concerned about her co2 on labs from hematology. Magalys Gonzales MD [address], [address], [place], [address], [employer] 03/21/2023 12:27:41 06/24/2023 text/html Here for f/u. Angelia bellamy is having irritability and joint pain. Recent labs showed elevated hemoglobin and elevated iron. She has been taking mvi with iron and additional iron supplement for iron deficiency anemia. She d/c supplement when her labs were reviewed 1 week ago. Magalys Gonzales MD [address], [address], [place], [address], [employer] 06/24/2023 12:41:58 11/20/2023 text/html Pt is here for anemia f/u JEVON JosephP-Anuj [address], [place], [address], [employer] 11/21/2023 08:40:20 12/23/2023 text/html here for wellnes s exam will have tear duct cautery, has been wearing punctal plugs in all 4 tear ducts for 20+ year, but the upper plugs keep coming out. has been dealing with right knee pain for some time, had MRI knee done last year. Injections have not helped. She was decorating the house in early August, she squatted too far and it felt like her knee blew up. It was hard to get up from seated position-felt like knee was going to give out. It felt different from previous knee issues. She got second opinion with a new ortho. Magalys Gonzales MD [address], [address], [place], [address], [facility] 12/23/2023 19:25:58 06/04/2024 text/html Patient is a 69 year old female that presents to the office for follow up. Patient did not tolerate Alendronate, caused mouth sores and random bumps on her thighs. Patient reports the bumps would come and go-did not itch or burn but were annoying. Patient is due for 6 month labs in June, order. Patient is concerned about weight gain-patient reports she gained 10 pounds due to low metabolism and inability to do heavy exercise like previously. Patient is going to try HiPhenolic for weight loss. Patient denies chest pain and shortness of breath, nausea vomiting and diarrhea. RENATE Stark-Anuj [address], [place], [address], [facility] 06/06/2024 18:19:53 OBGyn Episode No OBEpisode recorded.
--- OUTSIDE RECORDS SUMMARY | 2024-10-22 09:44 | XMS_ITS | Referral Summary ---
Author Organization [facility] [address] [facility] lto Address [address] [place] [address] Care Team Providers Care Screw Eye Assembler Name Role Phone Arianna Cabrera NP Primary Care Provider [phone] Encounters Date Type Department Care Team Description 07/26/2024 12:55 PM HOME CHILD CARE PROVIDER Ancillary Procedure [facility] Imaging at [address] [phone] 07/26/2024 1:00 PM HOME CHILD CARE PROVIDER Office Visit [facility] [address] [place] [phone] Minesh Leal PA Closed displaced fracture of proximal phalanx of lesser toe of right foot, initial encounter (Primary Dx) from Last 3 Months Allergies Active Allergy Reactions Criticality Noted Date Comments Alendronate Other (See comments) Low 04/04/2024 Amitriptyline Other (See comments),Unknown Medium 01/21/2017 Depression Cefdinir Diarrhea,Unknown,Oth er (See comments) Low 01/21/2017 vaginal discharge Celecoxib Diarrhea,Nausea only Low 01/21/2017 Duloxetine Anxiety,Other (See comments),Unknown Low 01/21/2017 depression Erythromycin Nausea And Vomiting,Nausea only Low 01/21/2017 Ferrous Sulfate Swelling Medium 03/10/2023 Levothyroxine Stomach upset,Nausea only,Other (See comments) Low 05/31/2022 Atorvastatin Muscle pain Medium 11/01/2022 Moxifloxacin Hcl Nausea only Low 01/21/2017 Ebtbcbf-Uus-Gwg Reductase Inhibitors Muscle pain,Other (See comments) Medium 01/21/2017 muscle pain Tetracycline Nausea And Vomiting,Nausea only Low 01/21/2017 Valdecoxib Diarrhea,Nausea And Vomiting,Nausea only Low 01/21/2017 Lifitegrast Blisters High 11/01/2022 Medications aspirin 81 mg enteric coated tablet Aspir-81 07/12/20 19 Active saliva substitute combo no.9 (BIOTENE DRY MOUTH ORAL RINSE MM) Active coenzyme Q10 10 mg capsule CoQ-10 07/12/20 19 Active multivit-min/ca lc/biotin/D3/FA (BIOTIN PLUS-CALCIUM AND VIT D3 ORAL) Active propylene glycol/peg 400 (SYSTANE LIQUID GEL OPHT) Active hydroxypropyl cellulose 5 mg insert Active fluticasone propionate (FLONASE) 50 mcg/actuation nasal spray Active albuterol HFA (PROVENTIL HFA,VENTOLIN HFA,PROAIR HFA) 90 mcg/actuation inhaler albuterol sulfate HFA 90 mcg/actuation aerosol inhaler Active azelastine (ASTELIN) 137 mcg (0.1 %) nasal spray azelastine 137 mcg (0.1 %) nasal spray aerosol Active bumetanide (BUMEX) 2 mg tablet bumetanide 2 mg tablet Active clonazePAM (KlonoPIN) 0.5 mg tablet Take 1 tablet (0.5 mg total) by mouth as needed 10/01/19 23 Active cyclosporine (RESTASIS MULTIDOSE OPHT) Acti ve diazePAM (VALIUM) 2 mg tablet Take 1 tablet (2 mg total) by mouth every 8 (eight) hours as needed 10/01/19 23 Active docosahexaenoic acid-epa 120-180 mg capsule Take 1,000 mg by mouth daily Active estradioL (ESTRACE) 0.01 % (0.1 mg/gram) vaginal cream estradiol 0.01% (0.1 mg/gram) vaginal cream Active diclofenac sodium (VOLTAREN) 1 % gel diclofenac 1 % topical gel Active Lactobacillus acidophilus (Probiotic) 10 billion cell capsule Active levocetirizine (XYZAL) 5 mg tablet levocetirizine 5 mg tablet 01/22/20 17 Active loteprednol 0.2 % drops,suspensio n 1 drop 4 (four) times a day Active MAGNESIUM CITRATE ORAL Active montelukast (SINGULAIR) 10 mg tablet montelukast 10 mg tablet Active omeprazole (PriLOSEC) 20 mg capsule Take 1 capsule (20 mg total) by mouth daily Active penciclovir (DENAVIR) 1 % cream Apply topically every 2 (two) hours Active rosuvastatin (CRESTOR) 10 mg tablet rosuvastatin 10 mg tablet Active triamcinolone (KENALOG) 0.1 % paste triamcinolone acetonide 0.1 % dental paste APPLY WITH A SWAB TO AFFECTED AREA(S) THREE TO FOUR TIMES DAILY Active coenzyme R05-[id number] E 100-5 mg-unit capsule Take by mouth Active acetaminophen (TYLENOL) 500 mg tablet Take 1 tablet (500 mg total) by mouth every 4 (four) hours as needed Active icosapent ethyL (VASCEPA) 1 gram capsule Take 2 capsules (2 g total) by mouth 2 (two) times a day Active cholecalciferol (VITAMIN D-3) 2000 unit capsule Take 1 capsule (2,000 Units total) by mouth daily 30 capsule 01/19/20 24 Active ascorbic acid (VITAMIN C) 500 mg tablet,chewable Take 1 tablet/chew tab (500 mg total) by mouth 2 (two) times a day 60 tablet/chew tab 01/19/20 24 Active HYDROcodone-reynaldo taminophen (NORCO) 5-325 mg per tabletIndicatio ns:Pain Take 1-2 tablets by mouth every 4 (four) hours as needed for pain 15 tablet 01/19/20 24 Active Additional Information Patient not taking.Reported on 07/26/2024 Prolia 60 mg/mL syringe 06/10/20 24 Active eszopiclone (LUNESTA) 3 mg tablet 1 tablet (3 mg total) 07/22/20 24 Active Active Problems Problem Noted Date Diagnosed Date Acute lateral meniscal tear, right, initial enco unter 01/19/2024 Complex tear of medial meniscus of right knee Cough 10/20/2023 Dysuria 10/20/2023 Neuropathy 10/20/2023 Osteopenia 10/20/2023 Urinary tract infectious disease 10/20/2023 Keratitis sicca, bilateral 09/10/2023 Vitamin D deficiency 06/16/2023 Dyspnea 03/20/2023 Anxiety 02/19/2023 Allergic rhinitis 02/10/2023 Gastroesophageal reflux disease without esophagi tis 01/24/2023 Assessment & Plan (01/24/2023 11:46 AM CDT): Well controlled on prilosec once daily before lunch. EGD with normal esophagus. Continue current medication omeprazole 20 mg once daily. Acute sinusitis 01/22/2023 Tear of lateral meniscus of knee 12/10/2022 Arthralgia of right knee 12/03/2022 Iron deficiency anemia 11/01/2022 Overview (11/01/2022): Added automatically from request for surgery [id number] Assessment & Plan (01/24/2023 11:47 AM CDT): Discovered incidentally on labs with hemoglobin 11.6 MCV 73 and iron saturation of 5%. normal CMP Asymptomatic No signs of bleeding or prior abdominal surgeries Eats well balanced diet Recent EGD 11/2022 with normal esophageal and duodenal biopsies Colonoscopy with erythematous mucosa in the sigmoid with biopsy showing nonspecific mild focal congestion and erosion negative for significant inflammation and chronic architectural changes. normal TI No family history of colon cancer No endoscopic explanation for patient's SHYANN Continue oral iron Follow up hematology for SHYANN work up Assessment & Plan (11/01/2022 1:29 PM HOME CHILD CARE PROVIDER): New problem with unknown prognosis. Discovered incidentally on labs with hemoglobin 11.6 MCV 73 and iron saturation of 5%. normal CMP. No signs of bleeding except for black stools after starting iron pills 2 weeks ago. Negative Cologuard last year per patient and normal colonoscopy from 10 years ago. No family history of colon cancer. Plan Schedule EGD and colonoscopy for further evaluation of her iron-deficiency anemia Other specified hypothyroidism 11/01/2022 Other hyperlipidemia 11/01/2022 Resolved Problems Problem Noted Date Diagnosed Date Resolved Date Esophageal spasm 11/01/2022 01/24/2023 Assessment & Plan (11/01/2022 1:32 PM HOME CHILD CARE PROVIDER): Chronic and controlled. Per patient initial episode was 30 years ago at that time was treated by a very stressful event. Has been on omeprazole since then along with lifestyle modifications with adequate control of her symptoms. EGD 13 years ago showed diffuse spasms in her esophagus per patient. Will evaluate with EGD. Continue PPI and dysphagia lifestyle modifications Esophageal dysphagia 11/01/2022 023 Assessment & Plan (11/01/2022 1:31 PM HOME CHILD CARE PROVIDER): Chronic and overall well-controlled. Occasional symptoms with taking large pills or eating really dry foods. Currently on PPI daily and follows dysphagia lifestyle modifications. Will evaluate with EGD. Social History Tobacco Use Types Packs/Day Years Used Date Smoking Tobacco: Never Smokeless Tobacco: Never Tobacco Cessation:Counseling Given: Not Answered AUDIT-C Answer Date Recorded Q1: How often do you have a drink containing alc ohol? 2-4 times a month 01/12/2024 Q2: How many drinks containi ng alcohol do you have on a typical day when you are drinking? 1 or 2 01/12/2024 Q3: How often do you have si x or more drinks on one occasion? Never 01/12/2024 Personal Safety Answer Date Recorded Have you ever been in or are you currently in a harmful physical or emotional relationship or is someone making you feel afraid or unsafe? Denies 01/19/2024 Comments No Sex and Gender Information Value Date Recorded Sex Assigned at Not on file Legal Sex Female 4:40 PM HOME CHILD CARE PROVIDER Gender Identity Female 10/13/2023 11:46 AM HOME CHILD CARE PROVIDER Sexual Orientation Straight 10/13/2023 11 :46 AM HOME CHILD CARE PROVIDER Last Filed Vital Signs Vital Sign Reading Time Taken Comments Blood Pressure 145/85 07/26/2024 12:59 PM HOME CHILD CARE PROVIDER Pulse 69 07/26/2024 12:59 PM HOME CHILD CARE PROVIDER Temperature 36.3 ??C (97.3 ??F) 01/19/2024 3:16 PM CD T Respiratory Rate 14 01/19/2024 3:16 PM CDT Oxygen Saturation 99% 01/19/2024 3:16 PM CDT Inhaled Oxygen Concentration - - Weight 70.7 kg (155 lb 14.4 oz) 024 12:59 PM HOME CHILD CARE PROVIDER Height 157.5 cm (5' 2 ) 07/26/2024 12:5 9 PM HOME CHILD CARE PROVIDER Body Mass Index 28.51 07/26/2024 12:59 PM HOME CHILD CARE PROVIDER Plan of Treatment Not on file Procedures Procedure Name Priority Date/Time Associated Diagnosis Comments XR FOOT RIGHT 3 OR MORE VIEWS Schedule Routine, Read Routine (OP Routine) 07/26/2024 1:01 PM HOME CHILD CARE PROVIDER Closed displaced fracture of proximal phalanx of lesser toe of right foot, initial encounter DIAGNOSTIC MAMMOGRAM BILATERAL W ENZO Schedule Routine, Read Routine (OP Routine) 05/13/2024 2:55 PM CDT Abnormal mammogram DEXA AXIAL SKELETON BONE DENSITY 1 OR MORE SITES Schedule Routine, Read Routine (OP Routine) 03/18/2024 1:21 PM CDT Asymptomatic menopausal state COLONOSCOPY 11/27/2022 7:43 AM HOME CHILD CARE PROVIDER from Last 3 Months or Most Recently Relevant to Health Maintenance Results * XR Foot Right 3 or More Views (07/26/2024 1:01 PM HOME CHILD CARE PROVIDER) Anatomical Region Laterality Modality Lower Extremities, Foot Right Digital Radiography Narrative 07/26/2024 1:03 PM HOME CHILD CARE PROVIDER Three views of the right foot show a minimally displaced fracture of the proximal phalanx of the 5th toe. ??Soft tissue swelling noted, no other osseous abnormalities noted. Minesh RINALDI IMG XR PROCEDURES Final Res ult * Diagnostic Mammogram Bilateral W Enzo (05/13/2024 2:55 PM CDT) Anatomical Region Laterality Modality Breast Bilateral Mammography 05/13/2024 3:27 PM CDT Impressions 05/13/2024 3:27 PM CDT 1. ??The bilateral breast asymmetries of concern detected on screening mammogram are all benign as detailed above. 2. ??No mammographic evidence of malignancy in either breast. Monthly breast self physical examination and annual screening mammography are recommended. ??The patient will be due for her next screening mammogram on 03/19/2025. BI-RADS: 2 - Benign. The patient was notified of these findings and recommendations at the time of the examination. Electronically signed by: Gary Jacobs M.D. Narrative 05/13/2024 3:27 PM CDT EXAMINATION: DIAGNOSTIC MAMMOGRAM BILATERAL W ENZO ORDERING HEALTHCARE PROVIDER: ARIANNA CABRERA HISTORY: 69-year-old female recalled from screening mammogram for multiple indeterminate asymmetries in both breasts. ?? COMPARISON: 03/18/2024, 10/18/2022, 10/17/2020, 04/04/2020, 03/23/2020 TECHNIQUE: Full field LM views and spot compression CC views of both breasts, full field and spot compression MLO views of the right breast, and full field CC view of the left breast were obtained with digital technique using breast tomosynthesis with C view. ??Computer aided detection was utilized. FINDINGS: BREAST DENSITY: There are scattered fibroglandular elements in the bilateral breasts. MAMMOGRAM FINDINGS: ??There are benign scattered calcifications in both breasts. ??The bilateral breast asymmetries of concern detected on screening mammography are all either pliable with compression (consistent with benign dense tissue) or are stable mammographically dating back to March 2020. ??There are no suspicious calcifications or architectural distortion associated with any of these asymmetries. No new suspicious finding is identified in either breast on mammogram. ?? us Arianna Cabrera MEDICAL DOCTOR IMG MAMMO PROCEDURES Final Re sult * Dexa Axial Skeleton Bone Density 1 or 2 Site (03/18/2024 1:21 PM CDT) Anatomical Region Laterality Modality Body N/A Other 03/18/2024 9:38 PM CDT Narrative 03/18/2024 9:40 PM CDT EXAM DESCRIPTION: DEXA AXIAL SKELETON BONE DENSITY 1 OR MORE SITES REASON FOR STUDY: 68 y/o ?? year old ??F ??with given history of: ??Asymptomatic menopausal state ?? screening ? [employer]/Model: [employer] SL (S/N [id number]) CLINICAL INFORMATION: Current height: ??61.5 ??inches ? Maximum height: ??62 ??inches ? Weight: ??153 ??pounds Risk factors: ??Postmenopausal, asthma or emphysema COMPARISON: None available FINDINGS: AP LUMBAR SPINE L1-L4: Total BMD is 0.792 g/cm2 T-score is -2.3 LEFT HIP: Total BMD is 0.668 g/cm2 T-score is -2.2 Femoral neck BMD is 0.512 g/cm2 T-score is -3.0 ?? FRAX: FRAX not reported due to T-scores of hip, femoral neck and/or spine being at or below -2.5 (Osteoporosis). IMPRESSION: Osteoporosis. ??Focus REFERENCE: Bone mineral density: T-Score: ?Normal (T-score above or = -1.0) ?Low bone mass ??(T-score between -1.0 and -2.5) replaces the previously used term osteopenia ?Osteoporosis (T-score = or below -2.5) Z-Score: ? Within the expected range for age (Z-score above -2.0) ? Below the expected range for age (Z-score is -2.0 or below) Please see below follow up recommendations. Medical evaluation for secondary causes of low bone mineral density may be appropriate. FRAX is a World Health Organization validated fracture risk assessment tool that calculates a person's 10 year probability of a major osteoporosis related fracture and hip fracture. ??According to the National Osteoporosis Foundation guidelines, postmenopausal women and men age 50 or older with low bone mass and a 10 year probability of a major osteoporosis related fracture = or greater than 20% or a 10 year probability of a hip fracture = or greater than 3% should be considered for pharmacological treatment for the prevention of osteoporosis. For further information, including treatment recommendations, please refer to the 2019 ISCD Official Positions (http://www.iscd.org) and the NOF's Clinician's Guide to Prevention and Treatment of Osteoporosis (http://www.nof.org/professionals/clinical-guidelines) THIS IS AN ELECTRONICALLY VERIFIED FINAL REPORT 03/18/2024 9:40 PM - Electronically signed by ??Jesus Izquierdo M.D. MF: [email or web address] D: ??03/18/2024 9:40 PM T: ??03/18/2024 9:40 PM Report ID: [id number] Reading Location: ??[id number] Procedure Note Jesus Izquierdo MD - 03/18/2024 EXAM DESCRIPTION: DEXA AXIAL SKELETON BONE DENSITY 1 OR MORE SITES REASON FOR STUDY: 68 y/o year old F with given history of:Asymptomatic menopausal state screening Demonstr[employer]/Model: [employer] SL (S/N [id number]) CLINICAL INFORMATION: Current height: 61.5 inches Maximum height: 62 inches Weight: 153 pounds Risk factors: Postmenopausal, asthma or emphysema COMPARISON: None available FINDINGS: AP LUMBAR SPINE L1-L4: Total BMD is 0.792 g/cm2 T-score is -2.3 LEFT HIP: Total BMD is 0.668 g/cm2 T-score is -2.2 Femoral neck BMD is 0.512 g/cm2 T-score is -3.0 FRAX: FRAX not reported due to T-scores of hip, femoral neck and/or spine beingat or below -2.5 (Osteoporosis). IMPRESSION: Osteoporosis. Focus REFERENCE: Bone mineral density: T-Score: Normal (T-score above or = -1.0) Low bone mass (T-score between -1.0 and -2.5) replaces thepreviously used term osteopenia Osteoporosis (T-score = or below -2.5) Z-Score: Within the expected range for age (Z-score above -2.0) Below the expected range for age (Z-score is -2.0 or below) Please see below follow up recommendations. Medical evaluation forsecondary causes of low bone mineral density may be appropriate. FRAX is a World Health Organization validated fracture risk assessmenttool that calculates a person's 10 year probability of a major osteoporosisrelated fracture and hip fracture. According to the National OsteoporosisFoundation guidelines, postmenopausal women and men age 50 or older with low bonemass and a 10 year probability of a major osteoporosis related fracture = or greater than 20% or a 10 year probability of a hip fracture = or greaterthan 3% should be considered for pharmacological treatment for the preventionof osteoporosis. For further information, including treatment recommendations, please referto the 2019 ISCD Official Positions (http://www.iscd.org) and the NOF's Clinician's Guide to Prevention and Treatment of Osteoporosis (http://www.nof.org/professionals/clinical-guidelines) THIS IS AN ELECTRONICALLY VERIFIED FINAL REPORT 03/18/2024 9:40 PM - Electronically signed by Jesus Izquierdo M.D. MF: [email or web address] Report ID: [id number] Reading Location: [place] [address] Magalys Gonzales MD IMG DXA PROCEDURES Final Result * COLONOSCOPY (11/27/2022 7:43 AM HOME CHILD CARE PROVIDER) Anatomical Region Laterality Modality Other Narrative Procedure Note Obey Liang MD - 11/27/2022 7:43 AM CST [facility] Patient Name: Mandi Key Procedure Date: 11/27/2022 7:43 AM Date of : 1955 Admit Type: Outpatient Age: 67 Gender: Female Attending MD: Obey Liang M.D. Room: [facility] ENDOSCOPY ROOM 2 Note Status: Finalized Patient Profile: This is a 67 year old female hx of HLD and hypothyroidism here for EGD and colonoscopy for evaluation of iron-deficiency anemia and chronic dysphagia with esophageal spasms No signs of bleeding except for black stools after starting iron pills 2 weeks ago. Negative Cologuard last year per patient and normal colonoscopy from10 years ago. No family history of colon cancer. Procedure: Colonoscopy Indications: Last colonoscopy: 2012, Iron deficiency anemia Referring MD: Magalys Gonzales M.D. Providers: Obey Liang M.D. Impression: - A patulous anal opening found on perianal exam. - The examined portion of the ileum was normal. - Erythematous mucosa in the sigmoid colon.Biopsied. - Internal hemorrhoids. Recommendation: - Patient has a contact number available for emergencies. The signs and symptoms of potential delayed complications were discussed with thepatient. Return to normal activities tomorrow. Written discharge instructions were provided to thepatient. - Discharge patient to home (with escort). - Resume previous diet. - Continue present medications. - Await pathology results. - Repeat colonoscopy for surveillance based on pathology results. If normal biopsy then repeat in10 years. - Return to GI office as previously scheduled. Medicines: Monitored Anesthesia Care Complications: No immediate complications. Estimated Blood Loss: Estimated blood loss was minimal. Procedure: Pre-Anesthesia Assessment: - Prior to the procedure, a History and Physicalwas performed, and patient medications and allergieswere reviewed. The patient is competent. The risks and benefits of the procedure and the sedation optionsand risks were discussed with the patient. Allquestions were answered and informed consent was obtained. Patient identification and proposed procedure were verified by the physician, the nurse and the planning specialist in the endoscopy suite. Mental Status Examination: normal. Prophylactic Antibiotics: The patient does not require prophylactic antibiotics. Prior Anticoagulants: The patient has taken no anticoagulant or antiplatelet agents. ASA Grade Assessment: III - A patient with severe systemic disease. After reviewing the risks and benefits,the patient was deemed in satisfactory condition to undergo the procedure. The anesthesia plan was touse monitored anesthesia care (MAC). Immediately priorto administration of medications, the patient was re-assessed for adequacy to receive sedatives. The heart rate, respiratory rate, oxygen saturations, blood pressure, adequacy of pulmonary ventilation,and response to care were monitored throughout the procedure. The physical status of the patient was re-assessed after the procedure. The benefits, risks and alternatives of theprocedure and sedation were discussed and informed consentwas obtained. All questions were answered. Please referto the signed informed consent document in the medical record. The bowel preparation used was Miralax via split dose instruction. The bowel preparation usedwas bisacodyl tablets via split dose instruction. The scope was passed under direct vision. TheColonoscope [id number] was introduced through the anus and advanced to the the terminal ileum. The colonoscopy was performed without difficulty. The patient tolerated the procedure well. The qualityof the bowel preparation was excellent. Bowel prep was administered using a split dose. Findings: The perianal exam findings include a patulous anal opening. The terminal ileum appeared normal. A segment of mildly erythematous mucosa was found in the sigmoidcolon between 30-40cm from the anal canal, mild scattered erythema wasfound at the anal verge as well. This was biopsied with a cold forceps for histology. Internal hemorrhoids were found during retroflexion. Obey Liang M.D. 11/27/2022 9:34:56 AM Number of Addenda: 0 Note Initiated On: 11/27/2022 7:43 AM Procedure Code(s): --- Professional --- 45745, Colonoscopy, flexible; with biopsy, single or multiple Diagnosis Code(s): --- Professional --- K64.8, Other hemorrhoids K63.89, Other specified diseases of intestine D50.9, Iron deficiency anemia, unspecified CPT copyright 2020 [employer]. All rights reserved. The codes documented in this report are preliminary and upon car mover reviewmay be revised to meet current compliance requirements. Recognized by the [employer] for promoting quality in endoscopy Obey Liang MD ENDOSCOPY PROCEDURES Final Resul t from Last 3 Months or Most Recently Relevant to Health Maintenance Insurance MEDICARE SOLUTIONS MEDICARE SOLUTIONS Advance Directives For more information, please contact: [phone] * Full Code (Latest Code Status on File) Date Activated Date Inactivated Comments 11/27/2022 7:35 AM 11/27/2022 2:25 PM Care Teams Screw Eye Assembler Relationship Specialty Start Date End Date Arianna Cabrera NP [address] [place] [id number] PCP - General Family Medicine 03/09/24
--- OUTSIDE RECORDS SUMMARY | 2024-10-22 09:44 | XMS_ITS | Clinical Summary ---
Author Organization [facility] Address [address] [address] Care Team Providers Care Reliability Specialist Name Role Phone Magalys Gonzales MD Primary Care Provider [phone] Source Comments [facility],non-owned Affiliates and Associated Physician Practices is amultiple site organization consisting of ambulatory clinics and hospital sitesin [place], [place], [place] and [place]. This disclosure is being madepursuant to the Care Everywhere program and may not contain all information available regarding this patient. Last updated 18.[facility] Allergies Active Allergy Reactions Criticality Noted Date Comments Amitriptyline Elevated Blood Pressure,Unknown,Oth er Medium 01/21/2017 Depression Atorvastatin Myalgias,Other Medium 01/21/2017 muscle pain Cefdinir Diarrhea,Unknown,Oth er 01/21/2017 vaginal discharge Duloxetine Other,Unknown Low 01/21/2017 depression Erythromycin Nausea and/or Vomiting 01/21/2017 Ferrous Sulfate Swelling Low 03/10/2023 Levofloxacin Diarrhea,Nausea and/or Vomiting 01/21/2017 Levothyroxine GI Discomfort 09/10/2023 Lifitegrast Rash High 11/01/2022 Moxifloxacin Nausea and/or Vomiting Low 01/21/2017 Moxifloxacin Hcl In Nacl Nausea and/or Vomiting 01/21/2017 Tetracycline Nausea and/or Vomiting 01/21/2017 Valdecoxib Diarrhea,Nausea and/or Vomiting 01/21/2017 Medications * Be aware that medications may not be up to date on this document. Alwaysverify current medications with the patient. Medication Sig Dispensed Refills Start Date End Date Status omeprazole (PriLOSEC) 20 MG capsule Take 1 (one) capsule by mouth once daily Active levocetirizine (Xyzal) 5 MG tablet 07/11/2023 Activ e Magnesium Citrate 100 MG CAPS Active estriol 0.1 % vaginal cream Insert 1 (one) g into the vagina at bedtime Active montelukast (Singulair) 10 MG tablet Take by mouth at bedtime Active aspirin EC (Ecotrin) 81 MG tablet Take 1 (one) tablet by mouth once daily Active acetaminophen (Tylenol) 500 MG tablet Take 1 (one) tablet by mouth every 4 hours as needed for Fever or Pain Maximum allowable Acetaminophen amount = 4 Grams (4000 mg) / 24 hours. Active fluticasone (Cutivate) 0.005 % ointment Apply to affected area 2 times daily Active Polyethyl Glycol-Propyl Glycol (Systane) 0.4-0.3 % opth gel Active Artificial Tear Insert (Lacrisert) 5 MG Active azelastine (Astepro) 205.5 MCG/SPRAY nasal spray [place] 2 (two) sprays into each nostril 2 times daily Active cycloSPORINE (Restasis) 0.05 % ophthalmic suspension 2 times daily Active penciclovir (Denavir) 1 % cream Apply to affected area every 2 hours while awake Active triamcinolone acetonide (Kenalog In Orabase) 0.1 % paste Take by mouth once daily Active AZELASTINE HCL OP Active diazePAM (Valium) 10 MG tablet Take 1 (one) tablet by mouth 3 times daily as needed Active clonazePAM (KlonoPIN) 0.5 MG tablet Take 1 (one) tablet by mouth 2 times daily Active rosuvastatin (Crestor) 10 MG tablet Take 1 (one) tablet by mouth once daily Active diclofenac 0.1% (Voltaren) 0.1 % ophthalmic solution 1 (one) drop 4 times daily Active bumetanide (Bumex) 2 MG tablet Take 1 (one) tablet by mouth once daily Active albuterol HFA (Proventil; Ventolin; Proair) 108 (90 Base) MCG/ACT inhaler Inhale 2 (two) puffs by mouth every 6 hours as needed Active multivitamins plus minerals chew tablet Take 1 (one) tablet by mouth daily with food Active icosapent ethyl (Vascepa) 1 g capsule Take 1 (one) capsule by mouth 2 times daily with morning and evening meal Active Other Active trimethoprim-polymy baljit B (Polytrim) 99742-4.1 UNIT/ML-% ophthalmic solution Instill 1 (one) drop into both eyes 4 times daily 10 mL 01/13/2024 Active Active Problems Problem Noted Date Diagnosed Date Keratitis sicca, bilateral 09/10/2023 Social History Tobacco Use Types Packs/Day Years Used Date Smoking Tobacco: Never Smokeless Tobacco: Never Tobacco Cessation:Counseling Given: Not Answered Alcohol Use Standard Drinks/Week Comments Yes 0 (1 standard drink = 0.6 oz pur e alcohol) Sex and Gender Information Value Date Recorded Sex Assigned at Not on file Gender Identity Not on file Sexual Orientation Not on file Plan of Treatment Health Maintenance Due Date Last Done Comments BONE DENSITY TESTING 1955 COLOGUARD (AGES 45-75) - COL ON CA SCREENING [address] COLONOGRAPHY - COLON CA SCREENING 1955 FIT - COLON CA SCREENING 1955 FLEX SIG - COLON CA SCREENING 1955 MAMMOGRAM 1955 HEPATITIS C SCREENING 05/03/1975 DTAP/TDAP/TD VACCINES (1 - Tdap) 1976 PNEUMOCOCCAL VACCINE 50+ (1 of 1 - PCV) 2007 ZOSTER VACCINE (1 of 2) 2007 COVID-19 VACCINE ( - 2023-2 5 season) 2024 INFLUENZA VACCINE (#1) 2024 DEPRESSION SCREENING 09/22/2024 MEDICARE AWV ? CALENDAR YEAR 2024 Respiratory Syncytial Virus (RSV) Vaccine Pt: or over 60 yrs (1 - 1-dose 75+ series) 2032 COLONOSCOPY - COLON CA SCREENING 11/27/2032 11/28/19 Colorectal Cancer Screening 11/27/2032 HEPATITIS B VACCINE Aged Out No longe r eligible based on patient's age to complete this topic HIB VACCINE Aged Out No longer eligi ble based on patient's age to complete this topic HPV VACCINE Aged Out No longer eligi ble based on patient's age to complete this topic MENINGOCOCCAL (Group B) VACCINE Aged Out No longer eligible based on patient's age to complete this topic MENINGOCOCCAL VACCINE Aged Out No lowell naida eligible based on patient's age to complete this topic Care Teams Reliability Specialist Relationship Specialty Start Date End Date Magalys Gonzales MD [address] [place] [phone] PCP - General Family Medicine 09/10/23
--- OUTSIDE RECORDS SUMMARY | 2024-10-22 09:44 | XMS_ITS | Clinical Summary ---
Author Organization [facility] [place] [facility] Address [address] [place] [address] Care Team Providers Care Pe Teacher Name Role Phone Arianna Cabrera NP Primary Care Provider [phone] Allergies Active Allergy Reactions Criticality Noted Date [...] 11/01/2022 Moxifloxacin Hcl Nausea only Low 01/21/2017 Abgcrcz-Lbc-Ogw Reductase Inhibitors Muscle pain,Other (See comments) Medium [...] THREE TO FOUR TIMES DAILY Active coenzyme [id number] E 100-5 mg-unit capsule Take by mouth [...] (11/01/2022): Added automatically from request for surgery [id number] Assessment & Plan (01/24/2023 11:47 AM CDT): [...] up Assessment & Plan (11/01/2022 1:29 PM LIQUID SUGAR FORTIFIER): New problem with unknown prognosis. Discovered incidentally [...] 01/24/2023 Assessment & Plan (11/01/2022 1:32 PM LIQUID SUGAR FORTIFIER): Chronic and controlled. Per patient initial episode [...] 023 Assessment & Plan (11/01/2022 1:31 PM LIQUID SUGAR FORTIFIER): Chronic and overall well-controlled. Occasional symptoms with taking large pills or eating really dry foods. Currently on PPI daily and follows dysphagia lifestyle modifications. Will evaluate with EGD. Encounters Date Type Department Care Team Description 07/26/2024 1:00 PM LIQU[employer] SUGAR FORTIFIER Office Visit [facility] [address] [place] [phone] Minesh Leal PA Closed displaced fracture of proximal phalanx of lesser toe of right foot, initial encounter (Primary Dx) 07/26/2024 12:55 PM LIQUID SUGAR FORTIFIER Ancillary Procedure [facility] at [address] [phone] from Last 3 Months Surgical History Surgery Date Site/Laterality Comments COLONOSCOPY 09/22/2007 - 09/21/2008 SINUS SURGERY DILATION AND CURETTAGE OF UTERUS Medical History Medical History Date Comments Esophageal spasm 11/01/2022 Esophageal dysphagia 11/01/2022 Awareness under anesthesia Hypothyroidism Asthma Allergic rhinitis GERD (gastroesophageal reflux disease) Family History Medical History Relation Name Comments Breast cancer Sister Ovarian cancer Neg Hx Thyroid cancer Neg Hx Relation Name Status Comments Sister Social History Tobacco Use Types Packs/Day Years [...] on file Legal Sex Female 4:40 PM [employer] SUGAR [employer]IER Gender Identity Female 10/13/2023 11:46 AM [employer]IER Sexual Orientation Straight 10/13/2023 11 :46 AM [employer] SUGAR [employer]TIFIER Obstetrics History Para Term AB IAB SAB Ectopic Multiple Livin g Live Births 2 2 2 Date Outcome GA Total Labor Labor/2nd/3rd Weight Sex Type Anes PTL Marysol A1 A5 Name Clin Term Term Last Filed Vital Signs Vital Sign Reading Time Taken Comments Blood Pressure 145/85 07/26/2024 12:59 PM LIQU[employer] SUGAR FORTIFIER Pulse 69 07/26/2024 12:59 PM LIQU[employer] SUGAR FORTIFIER Temperature 36.3 ??C (97.3 ??F) 01/19/2024 3:16 PM CD T Respiratory Rate 14 01/19/2024 3:16 PM CDT Oxygen Saturation 99% 01/19/2024 3:16 PM CDT Inhaled Oxygen Concentration - - Weight 70.7 kg (155 lb 14.4 oz) 024 12:59 PM LIQU[employer] SUGAR FORTIFIER Height 157.5 cm (5' 2 ) 07/26/2024 12:5 9 PM LIQUID SUGAR [employer]TIFIER Body Mass Index 28.51 07/26/2024 12:59 PM LIQUID SUGAR FORTIFIER Plan of Treatment Health Maintenance Due Date Last Done Comments Depression Screening 1955 Hepatitis C Screening 1955 DTaP/Tdap/Td Vaccine (1 - Tdap) 1968 Hepatitis B Screening 1975 Zoster Vaccine (1 of 2) 2007 Pneumococcal vaccine 65+ (1 of 1 - PCV) 2022 Well Visit 65+ 2022 Covid-19 Vaccine ( season) 2024 08/27/2021, 01/18/2021, 12/25/2020 Influenza Vaccine (#1) 2024 Fall Risk Assessment 01/18/2025 01/19/2024 Breast Cancer Screening-Mammogram 05/13/2025 024, 03/18/2024 Osteoporosis Screening-Bone Density Scan 03/18/2026 03/18/2024 Colon Cancer Screening-Colonoscopy 11/27/20322022 Procedures Procedure Name Priority Date/Time Associated Diagnosis Comments XR FOOT RIGHT 3 OR MORE VIEWS Schedule Routine, Read Routine (OP Routine) 07/26/2024 1:01 PM LI[employer] SUGAR FORTIFIER Closed displaced fracture of proximal phalanx of lesser toe of right foot, initial encounter DIAGNOSTIC MAMMOGRAM BILATERAL W ENZO Schedule Routine, Read Routine (OP Routine) 05/13/2024 2:55 PM CDT Abnormal mammogram DEXA AXIAL SKELETON BONE DENSITY 1 OR MORE SITES Schedule Routine, Read Routine (OP Routine) 03/18/2024 1:21 PM CDT Asymptomatic menopausal state COLONOSCOPY 11/27/2022 7:43 AM LIQUID SUGAR FORTIFIER from Last 3 Months or Most Recently Relevant to Health Maintenance Results * XR Foot Right 3 or More Views (07/26/2024 1:01 PM LIQUID SUGAR FORTIFIER) Anatomical Region Laterality Modality Lower Extremities, Foot Right Digital Radiography Narrative 07/26/2024 1:03 PM LIQU[employer] SUGAR FORTIFIER Three views of the right foot show a minimally displaced fracture of the proximal phalanx of the 5th toe. ??Soft tissue swelling noted, no other osseous abnormalities noted. us Minesh RINALDI IMG XR PROCEDURES Final Res [...] breast on mammogram. ?? us Arianna Cabrera POWER GENERATION ENGINEER IMG MAMMO PROCEDURES Final Re sult * [...] of: ??Asymptomatic menopausal state ?? screening ? 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 MF: KRISTEN Report ID: [id number] Reading Location: [id number] Magalys Gonzales MD IM DXA PROCEDURES Final Result * COLONOSCOPY (11/27/2022 7:43 AM LIQUID SUGAR FORTIFIER) Anatomical Region Laterality Modality Other Narrative Procedure Note Obey Liang MD - 11/27/2022 7:43 AM CST [facility] Patient Name: Mandi Key Procedure Date: 11/27/2022 7:43 AM Date of : 1955 Admit Type: Outpatient Age: 67 Gender: Female Attending MD: Obey Liang M.D. Room: [facility] ENDOSCOPY ROOM 2 Note Status: Finalized Patient [...] by the physician, the nurse and the stock turner in the endoscopy suite. Mental Status Examination: [...] scope was passed under direct vision. TheColonoscope [id number] was introduced through the anus and advanced [...] 7:43 AM Procedure Code(s): --- Professional --- 73122, Colonoscopy, flexible; with biopsy, single or multiple Diagnosis Code(s): --- Professional --- K64.8, Other hemorrhoids K63.89, Other specified diseases of intestine D50.9, Iron deficiency anemia, unspecified CPT copyright 2020 [employer]. All rights reserved. The codes documented in this report are preliminary and upon co founder and president reviewmay be revised to meet current compliance requirements. Recognized by the [employer] for promoting quality in endoscopy Obey Liang MD ENDOSCOPY PROCEDURES Final Resul t from Last 3 Months or Most Recently Relevant to Health Maintenance Insurance [facility] Address: [facility] [address] [place] [address] MEDICARE SOLUTIONS Advance Directives For more information, please contact: [phone] * Full Code (Latest Code Status on File) Date Activated Date Inactivated Comments 11/27/2022 7:35 AM 11/27/2022 2:25 PM Care Teams Pe Teacher Relationship Specialty Start Date End Date Arianna Cabrera NP [address] [place] [address] PCP - General Family Medicine 03/09/24
--- OUTSIDE RECORDS SUMMARY | 2024-10-22 09:44 | XMS_ITS | Continuity of Care Document ---
Author Name [facility] Address [address] [place] [address] Organization [facility] Care Team Providers Care Opener Tender Name [facility] Unavailable Problems Problem Status Onset Date Problem Type Date of Resolution Comme nts Source Unspecified Sinusitis (Chronic) Active Diagnosis Allergies, Adverse Reactions, Alerts Substance Category Reaction Severity Reaction type Status Date Reported Comments Source Avelox Assertion diarrhea, stomach issues Mild Propensity to adverse reactions to drug Active [facility] E[facility]/LYLY RGY/FACI AL PLASTICS Bextra Assertion diarrhea Mild Propensity to adverse reactions to drug Active [facility]-UNA ENT/LYLY RGY/FACI AL PLASTICS cefdinir Assertion Drug allergy Active [facility] E[facility]/LYLY RGY/FACI AL PLASTICS CeleBREX<sup >1</sup> Assertion Propensity to adverse reactions to drug Active Stomach upset UP-UNA ENT/LYLY RGY/FACI AL PLASTICS Cymbalta Assertion severe depression Moderate Propensity to adverse reactions to drug Active [facility]-UNA ENT/LYLY RGY/FACI AL PLASTICS erythromycin Assertion Drug allergy Active [facility]-UNA ENT/LYLY RGY/FACI AL PLASTICS Levaquin Assertion nausea, stomach burning Mild Propensity to adverse reactions to drug Active [facility]-UNA ENT/LYLY RGY/FACI AL PLASTICS lovastatin Assertion Drug allergy Active [facility]-UNA ENT/LYLY RGY/FACI AL PLASTICS tetracycline Assertion stomach upset Mild Drug allergy Active [facility]-UNA ENT/LYLY RGY/FACI AL PLASTICS
--- OUTSIDE RECORDS SUMMARY | 2024-10-22 09:45 | XMS_ITS | Patient Health Summary ---
Author Organization [facility] Address [address] [place] [address] Care Team Providers Care Tax Assistant Name Role Phone Magalys Gonzales MD Primary Care Provider [phone] Note from [facility],non-owned Affiliates and Associated Physician Practices is amultiple site organization consisting of ambulatory clinics and hospital sitesin [place], [place], [place] and [place]. This disclosure is being madepursuant to the Care Everywhere program and may not contain all information available regarding this patient. Last updated 18.[facility] Allergies * Amitriptyline(Elevated Blood Pressure,Unknown,Other) -Medium Criticality * Atorvastatin(Myalgias,Other) -Medium Criticality * Cefdinir(Diarrhea,Unknown,Other) * Duloxetine(Other,Unknown) -Low Criticality * Erythromycin(Nausea and/or Vomiting) * Ferrous Sulfate(Swelling) -Low Criticality * Levofloxacin(Diarrhea,Nausea and/or Vomiting) * Levothyroxine(GI Discomfort) * Lifitegrast(Rash) -High Criticality * Moxifloxacin(Nausea and/or Vomiting) -Low Criticality * Moxifloxacin Hcl In Nacl(Nausea and/or Vomiting) * Tetracycline(Nausea and/or Vomiting) * Valdecoxib(Diarrhea,Nausea and/or Vomiting) Medications * Be aware that medications may not be up to date on this document. Alwaysverify current medications with the patient. * omeprazole (PriLOSEC) 20 MG capsule Take 1 (one) capsule by mouth once daily * levocetirizine (Xyzal) 5 MG tablet(Started 07/11/2023) * Magnesium Citrate 100 MG CAPS * estriol 0.1 % vaginal cream Insert 1 (one) g into the vagina at bedtime * montelukast (Singulair) 10 MG tablet Take by mouth at bedtime * aspirin EC (Ecotrin) 81 MG tablet Take 1 (one) tablet by mouth once daily * acetaminophen (Tylenol) 500 MG tablet Take 1 (one) tablet by mouth every 4 hours as needed for Fever or Pain Maximum allowable Acetaminophen amount = 4 Grams (4000 mg) / 24 hours. * fluticasone (Cutivate) 0.005 % ointment Apply to affected area 2 times daily * Polyethyl Glycol-Propyl Glycol (Systane) 0.4-0.3 % opth gel * Artificial Tear Insert (Lacrisert) 5 MG * azelastine (Astepro) 205.5 MCG/SPRAY nasal spray [place] 2 (two) sprays into each nostril 2 times daily * cycloSPORINE (Restasis) 0.05 % ophthalmic suspension 2 times daily * penciclovir (Denavir) 1 % cream Apply to affected area every 2 hours while awake * triamcinolone acetonide (Kenalog In Orabase) 0.1 % paste Take by mouth once daily * AZELASTINE HCL OP * diazePAM (Valium) 10 MG tablet Take 1 (one) tablet by mouth 3 times daily as needed * clonazePAM (KlonoPIN) 0.5 MG tablet Take 1 (one) tablet by mouth 2 times daily * rosuvastatin (Crestor) 10 MG tablet Take 1 (one) tablet by mouth once daily * diclofenac 0.1% (Voltaren) 0.1 % ophthalmic solution 1 (one) drop 4 times daily * bumetanide (Bumex) 2 MG tablet Take 1 (one) tablet by mouth once daily * albuterol HFA (Proventil; Ventolin; Proair) 108 (90 Base) MCG/ACT inhaler Inhale 2 (two) puffs by mouth every 6 hours as needed * multivitamins plus minerals chew tablet Take 1 (one) tablet by mouth daily with food * icosapent ethyl (Vascepa) 1 g capsule Take 1 (one) capsule by mouth 2 times daily with morning and evening meal * Other * trimethoprim-polymyxin B (Polytrim) 13281-2.1 UNIT/ML-% ophthalmic solution (Started 01/13/2024) Instill 1 (one) drop into both eyes 4 times daily Active Problems Problem Noted Date Diagnosed Date [...] on file Sexual Orientation Not on file Procedures * EYE EXAM(Performed 07/08/2024) * IA CLOSE TEAR DUCT OPENING(Performed 01/13/2024) Performed for Keratitis sicca, bilateral (HCC) * PROC OPH MISC PROCEDURE(Performed 01/13/2024) Performed for Keratitis sicca, bilateral (HCC) * GROSS + MICRO EXAM(Performed 05/20/1996) Results * EYE EXAM (07/08/2024) Anatomical Region Laterality Modality Other Narrative 07/08/2024 Ordered by an unspecified provider. Scanned Document SCANNING ONLY * IA CLOSE TEAR DUCT OPENING (01/13/2024 8:01 PM CDT) Narrative Michelle Villela MD - 01/13/2024 8:01 PM CDT Michelle Villela MD ? 01/13/2024 ??8:07 PM Minor Procedure Op Note Date of Procedure: 01/13/2024 Mandi Key is a 68 year old female who presents to clinic for BUL punctoplasty with cautery. She is alone in the exam room. She has punctal plugs in the BLL, and these are still working for her. Pt notes eyes are scratchy and irritated because her upper punctal plugs have dissolved. She endorses mattering when she wakes up in the morning, even when she uses [facility]. Otherwise no changes noted. Pt wishes to proceed with procedure as planned. Past Medical History: Diagnosis Date ? ? Allergies ? Anxiety disorder ? Blurred vision ? Bone fracture ? Irregular heart rhythm ? Mild intermittent asthma, uncomplicated (HCC) ? Neck pain ? Sensorineural hearing loss ? UTI (urinary tract infection) ?? Current Outpatient Medications Medication Sig Dispense Refill ? ? acetaminophen (Tylenol) 500 MG tablet Take 1 (one) tablet by mouth every 4 hours as needed for Fever or Pain Maximum allowable Acetaminophen amount = 4 Grams (4000 mg) ??/ 24 hours. ? albuterol HFA (Proventil; Ventolin; Proair) 108 (90 Base) MCG/ACT inhaler Inhale 2 (two) puffs by mouth every 6 hours as needed ? Artificial Tear Insert (Lacrisert) 5 MG ? aspirin EC (Ecotrin) 81 MG tablet Take 1 (one) tablet by mouth once daily ? azelastine (Astepro) 205.5 MCG/SPRAY nasal spray [place] 2 (two) sprays into each nostril 2 times daily ? AZELASTINE HCL OP ? bumetanide (Bumex) 2 MG tablet Take 1 (one) tablet by mouth once daily ? clonazePAM (KlonoPIN) 0.5 MG tablet Take 1 (one) tablet by mouth 2 times daily ? cycloSPORINE (Restasis) 0.05 % ophthalmic suspension 2 times daily ? diazePAM (Valium) 10 MG tablet Take 1 (one) tablet by mouth 3 times daily as needed ? diclofenac 0.1% (Voltaren) 0.1 % ophthalmic solution 1 (one) drop 4 times daily ? estriol 0.1 % vaginal cream Insert 1 (one) g into the vagina at bedtime ? fluticasone (Cutivate) 0.005 % ointment Apply to affected area 2 times daily ? icosapent ethyl (Vascepa) 1 g capsule Take 1 (one) capsule by mouth 2 times daily with morning and evening meal ? levocetirizine (Xyzal) 5 MG tablet ? Magnesium Citrate 100 MG CAPS ? montelukast (Singulair) 10 MG tablet Take by mouth at bedtime ? multivitamins plus minerals chew tablet Take 1 (one) tablet by mouth daily with food ? omeprazole (PriLOSEC) 20 MG capsule Take 1 (one) capsule by mouth once daily ? Other ? penciclovir (Denavir) 1 % cream Apply to affected area every 2 hours while awake ? Polyethyl Glycol-Propyl Glycol (Systane) 0.4-0.3 % opth gel ? rosuvastatin (Crestor) 10 MG tablet Take 1 (one) tablet by mouth once daily ? triamcinolone acetonide (Kenalog In Orabase) 0.1 % paste Take by mouth once daily ? trimethoprim-polymyxin B (Polytrim) 54528-0.1 UNIT/ML-% ophthalmic solution Instill 1 (one) drop into both eyes 4 times daily 10 mL 0 No current facility-administered medications for this visit. Allergies Allergen Reactions ? ? Amitriptyline Elevated Blood Pressure, Unknown and Other ?? Depression ? ? Atorvastatin Myalgias and Other ?? muscle pain ? ? Cefdinir Diarrhea, Unknown and Other ?? vaginal discharge ? ? Levofloxacin Diarrhea and Nausea and/or Vomiting ? ? Tetracycline Nausea and/or Vomiting ? ? Duloxetine Other and Unknown ?? depression ? ? Moxifloxacin Nausea and/or Vomiting ? ? Lifitegrast Rash ? ? Erythromycin Nausea and/or Vomiting ? ? Levothyroxine GI Discomfort ? ? Moxifloxacin Hcl In Nacl Nausea and/or Vomiting ? ? Valdecoxib Diarrhea and Nausea and/or Vomiting ? ? Ferrous Sulfate Swelling Attending: Michelle Villela MD Weaving Teacher(s): Maxwell Adames Anesthesia: ??Local Infiltration Diagnosis: Patient Active Problem List: ?? Keratitis sicca, bilateral (HCC) Procedure: Plastics/Facial: ?? Bilateral upper eyelid punctal closure Physical Exam/Indications: ??Keratitis sicca Procedure Description: After risks, benefits and alternatives were discussed, an informed consent was signed and the patient was reclined in the exam chair. A time out was performed with confirmation of the surgical site. A drop of proparacaine was placed in the right eye. A cotton tip applicator soaked in proparacaine was placed in the right superomedial fornix. A 1% lidocaine with epinephrine mixture was used to infiltrate the upper eyelid. The same anesthesia was then performed on the left side. A punctal dilator was then used to open the left upper punctum. A hot tip cautery was then placed in the punctum and used to cauterize the opening. The same procedure was then performed on the right side. All sponges, needles and instruments were accounted for at the end of the procedure. The attending was present for the entire case from start to finish. EBL: None Complications: ??None Specimens: None Follow Up: phone f/u 2 weeks, sooner if any problems. Michelle Villela MD 01/13/2024 8:01 PM ?? Michelle Villela MD PROCEDURE/MINOR S URGICAL ORDERABLES * GROSS + MICRO EXAM (05/20/1996 3:34 PM CDT) Result CASE NUMBER [id number] Comment: ORDERING PHYSICIAN ??AGUILA ADKINS SPECIMEN TYPE ?Esophagus,Biopsy Pathology Report ? DATE OF 59 CLINICAL DIAGNOSIS Dysphagia. SPECIMEN Biopsy distal esophagus. MACROSCOPIC A single specimen is received in formalin labeled biopsy distal esophagus and consists of four pieces of sidhu tissue each measuring up to 0.3 cm in greatest dimension. ??The specimen is totally submitted in one cassette. dt/[facility] D ??05/21/96 T ??05/22/96 DIAGNOSIS ? DIAGNOSIS Distal esophagus, biopsy ? Reflux esophagitis. COMMENT No fungal elements are identified on H/E or Giemsa stained sections. Broadcast Transmitter Operator ? dt/[facility] D ??05/25/96 T ??05/25/96 Released By ?Mita Faustin MISCELLANEOUS SAMPLES / Unknown 05/20/1996 3:34 PM CDT 05/21/1996 10:36 AM CDT Historical Provider LAB - PATHOLOGY/C YTOLOGY ORDERABLES Care Teams Tax Assistant Relationship Specialty Start Date End Date Magalys Gonzales MD [address] [place] [address] Dr. [place] [phone] PCP - General Family Medicine 09/10/23
--- OUTSIDE RECORDS SUMMARY | 2024-10-22 09:45 | XMS_ITS | Clinical Summary ---
Author Organization [facility] Address [address] [place], [address] [address] Phone Care Team Providers Care Dairy Feed Mixing Operator Name Role Phone Magalys Gonzales MD Primary Care Provider + Allergies Active Allergy Reactions Criticality Noted Date Comments Amitriptyline Other (see Comments) 01/21/2017 Depression Moxifloxacin Hcl In Nacl Nausea 01/21/2017 Valdecoxib Diarrhea,Nausea 01/21/2017 Cefdinir Diarrhea,Other (see Comments) 01/21/2017 vaginal discharge Celecoxib Diarrhea,Nausea 01/21/2017 Duloxetine Hcl Other (see Comments) 01/21/2017 depression Erythromycin Nausea 01/21/2017 Levofloxacin In D5w Diarrhea,Nausea 01/21/2017 Atorvastatin Other (see Comments) 01/21/2017 muscle pain Tetracycline Nausea 01/21/2017 Medications omeprazole (PRILOSEC) 20 MG CAPSULE DELAYED RELEASE Take 20 mg by mouth daily. Active thyroid (ARMOUR THYROID) 60 MG Tablet Take 60 mg by mouth daily. Active fish oil-omega-3 fatty acids 1000 MG Capsule Take 1,000 mg by mouth daily. Active vitamin E 100 UNIT Capsule Take 100 Units by mouth daily. Active Multiple Vitamin (MULTI VITAMIN PO) Take by mouth. Active Calcium-Vitamin D-Vitamin K (CALCIUM + D + K) 750-500-40 MG-UNT-MCG Tablet Take by mouth. Active Cholecalciferol (VITAMIN D-3 PO) Take by mouth. Active estradiol (ESTRACE VAGINAL) 0.1 MG/GM Cream 2 g by Vaginal route daily. Active aspirin EC 81 MG Tablet Delayed Response Take 81 mg by mouth daily. Active TraZODone HCl 300 MG Tablet Take 300 mg by mouth nightly. Active cycloSPORINE (RESTASIS) 0.05 % Emulsion Place 1 Drop in affected eye(s) 2 times daily. Active loteprednol etabonate (ALREX) 0.2 % Suspension 1 Drop 4 times daily. Active penciclovir (DENAVIR) 1 % Cream Apply every 2 hours. Active triamcinolone acetonide (KENALOG) 0.1 % Paste by Mouth/Throat route 2 times daily. Active zoledronic acid (RECLAST) 5 MG/100ML Solution 4 mg by Intravenous route once. Active diazePAM (VALIUM) 2 MG Tablet Take 2 mg by mouth every 8 hours as needed for Anxiety. Active clonazePAM (KLONOPIN) 0.5 MG Tablet Take 0.5 mg by mouth 3 times daily. Active pimecrolimus (ELIDEL) 1 % Cream Apply 2 times daily. Apply thin film to affected areas twice daily. Active rosuvastatin (CRESTOR) 10 MG Tablet Take 10 mg by mouth daily. Active Coenzyme Q10 (COQ10) 100 MG Capsule Take by mouth. Activ e Iron-Vit C-Vit V93-Nstjk Acid (IRON 100 PLUS PO) Take by mouth. Active diclofenac sodium (VOLTAREN) 1 % Gel Apply 4 times daily. Active fluticasone (FLONASE) 50 MCG/ACT SuspensionIndicatio ns:PNAR (perennial non-allergic rhinitis),Allergy to mold,Seasonal allergic rhinitis due to pollen 2 sprays in each nostril once daily (best after shower/ bath) 3 Bottle 3 01/22/20 17 Active Levocetirizine Dihydrochloride 5 MG TabletIndications:A llergy to mold,Seasonal allergic rhinitis due to pollen 1tab po qd prn runny nose, sneezing, itching/ allergy symptoms 90 Tab 3 01/22/20 17 Active Social History Tobacco Use Types Packs/Day Years Used Date Smoking Tobacco: Never Alcohol Use Standard Drinks/Week Comments Yes 0 (1 standard drink = 0.6 oz pur e alcohol) social Comments No Sex and Gender Information Value Date Recorded Sex Assigned at Not on file Legal Sex Female 11:35 AM CDT Gender Identity Not on file Sexual Orientation Not on file 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 Not on file Not on file N ot on file Last Filed Vital Signs Vital Sign Reading Time Taken Comments Blood Pressure 122/80 01/21/2017 2:05 PM CDT Pulse 94 01/21/2017 2:05 PM CDT Temperature - - Respiratory Rate 16 01/21/2017 2:05 PM CDT Oxygen Saturation 98% 01/21/2017 2:05 PM CDT Inhaled Oxygen Concentration - - Weight 71.2 kg (157 lb) 01/21/2017 2:05 PM CDT Height 156.2 cm (5' 1.5 ) 01/21/2017 2:05 PM CDT Body Mass Index 29.18 01/21/2017 2:05 PM CDT Plan of Treatment Health Maintenance Due Date Last Done Comments DEXA Bone Density 1955 Hepatitis C Virus (HCV) Screening 1955 TdaP Immunization 1955 Colonoscopy 2002 Colorectal Cancer Screening 2002 Cologuard 2007 Immunochemical Fecal Occult Blood 2007 Mammogram 2007 Pneumococcal Immunization (5 0+ years) (1 of 1 - PCV) 2007 Zoster Immunization (1 of 2) 2007 Influenza Immunization (#1) 2024 SARS-COV-2 Immunization ( - 2023-25 season) 2024 Respiratory Syncytial Virus (RSV) Immunization (Adult) (1 - 1-dose 75+ series) 2032 Hepatitis B Immunization Aged Out No longer eligible based on patient's age to complete this topic Meningococcal Immunization (ACWY) Aged Out No longer eligible based on patient's age to complete this topic Rotavirus Immunization Aged Out No lo nger eligible based on patient's age to complete this topic Care Teams Dairy Feed Mixing Operator Relationship Specialty Start Date End Date Magalys Gonzales MD [address] [place] [id number] PCP - General Family Medicine 01/21/17
--- OUTSIDE RECORDS SUMMARY | 2024-10-22 09:45 | XMS_ITS | Referral Summary ---
Author Organization [facility] Address [address] [place] [address] Care Team Providers Care Field Inspector Name Role Phone Magalys Gonzales MD Primary Care Provider [phone] Source Comments [facility],non-owned Affiliates and Associated Physician Practices is amultiple site organization consisting of ambulatory clinics and hospital sitesin [place], [place], [place] and [place]. This disclosure is being madepursuant to the Care Everywhere program and may not contain all information available regarding this patient. Last updated 18.[facility] Allergies Active Allergy Reactions Criticality Noted Date [...] Active azelastine (Astepro) 205.5 MCG/SPRAY nasal spray [place] 2 (two) sprays into each nostril 2 [...] Active Other Active trimethoprim-polymy baljit B (Polytrim) 99380-4.1 UNIT/ML-% ophthalmic solution Instill 1 (one) drop [...] Orientation Not on file Plan of Treatment Not on file Care Teams Field Inspector Relationship Specialty Start Date End Date Magalys Gonzales MD [address] [place] [phone] PCP - General Family Medicine 09/10/23
--- OUTSIDE RECORDS SUMMARY | 2024-10-22 09:46 | XMS_ITS | Continuity of Care Document ---
Author Name [facility] Address [address] [place] [address] Organization [facility] Care Team Providers Care [place] Name Role Phone [facility] Unavailable Problems Problem Status Onset Date [...]
--- NOTE | 2024-10-22 11:13 | ED.URI ---
HPI - URI/Sore Throat General Chief Complaint: Upper Respiratory Infection Stated Complaint: congestion/cough History of Present Illness HPI Narrative: patient is a 69-year-old female, past medical history significant for recurrent sinusitis, presents to [facility] with approximately 3 week history of intermittent cough cold symptoms that have waxed and waned in severity since onset. She states that she has had no nasal discharge of color but reports that she does have a spasmodic cough that is often triggered by seeking, laughing or talking. She has been using Vicks, a vaporizer at home and taking DayQuil NyQuil but does not feel she is getting enough symptom relief at night specifically. She denies associated fevers, chest pain, sputum production with cough, abdominal pain, nausea vomiting or diarrhea. She denies any additional associated symptoms or modifying factors. Related Data Home Medications ?Medication ?Instructions ?Recorded ?Confirmed ?Last Taken ?Type fish [id number] C-vit E 2,000 2.5 g PO DAILY 03/04/21 10/10/22 Unknown History mg-650 mg-12 mg/2.5 g emulsion packt [place] MonoPure Curcumin EC 07/31/21 Unknown History calcium 500 mg-vitamin D3 500 1 tablet PO DAILY 07/31/21 10/10/22 Unknown History unit-vitamin K 40 mcg chewable tablet coenzyme [id number] E 100 mg-100 1 cap PO DAILY 07/31/21 10/10/22 Unknown History unit capsule white petrolatum-mineral oil 94 07/31/21 Unknown History %-3 % eye ointment (Systane Nighttime) bumetanide 2 mg tablet 2 mg PO DAILY 10/10/22 10/10/22 Unknown History clonazepam 0.5 mg tablet 0.5 mg PO DAILY 10/10/22 10/10/22 Unknown History cyclosporine 0.05 % eye drops in a See Rx Instructions .Route .COMPLEX 10/10/22 10/10/22 Unknown History dropperette (Restasis) diazepam 2 mg tablet 2 mg PO DAILY 10/10/22 10/10/22 Unknown History hydroxypropyl cellulose 5 mg eye See Rx Instructions .Route .COMPLEX 10/10/22 10/10/22 Unknown History inserts (Lacrisert) levocetirizine 5 mg tablet 5 mg PO DAILY 10/10/22 10/10/22 Unknown History liothyronine 5 mcg tablet 5 mcg PO DAILY 10/10/22 10/10/22 Unknown History montelukast 10 mg tablet 10 mg PO DAILY 10/10/22 10/10/22 Unknown History rosuvastatin 10 mg tablet 10 mg PO DAILY 10/10/22 10/10/22 Unknown History Allergies Allergy/AdvReac Type Severity Reaction Status Date / Time lifitegrast Allergy Unknown Rash Verified 10/22/24 10:58 moxifloxacin Allergy Unknown Nausea Verified 10/22/24 10:58 amitriptyline AdvReac Unknown Other Verified 10/22/24 10:58 atorvastatin AdvReac Unknown Muscle Verified 10/22/24 10:58 Spasms cefdinir AdvReac Unknown Other Verified 10/22/24 10:58 celecoxib AdvReac Unknown Diarrhea Verified 10/22/24 10:58 duloxetine AdvReac Unknown Other Verified 10/22/24 10:58 erythromycin base AdvReac Unknown Nausea Verified 10/22/24 10:58 levofloxacin AdvReac Unknown Diarrhea Verified 10/22/24 10:58 pravastatin AdvReac Unknown Muscle Verified 10/22/24 10:58 Spasms tetracycline AdvReac Unknown Nausea Verified 10/22/24 10:58 valdecoxib AdvReac Unknown Diarrhea Verified 10/22/24 10:58 Review of Systems ENT: Reports as per HPI Respiratory: Respiratory: Reports as per HPI PMFSH Past Medical History Medical History High cholesterol Anxiety Dry eye Chronic sinusitis Social History Social History Gender identity (if verbalized by the patient): Female Exam Const: General: healthy appearing Nutritional Appearance: well nourished Orientation/consciousness: patient oriented x3 Limitations: no limitations HENMT: Head: normal to inspection Ears: external ears normal and TM's normal bilaterally Face/Nose/Sinus: Normal external nose present Face and sinus: normal facial exam Mouth: Yes Normal oral and palatal mucosa present Teeth and gingiva: dentition normal Throat: posterior oropharynx normal and uvula midline Other: [place] appearance to the pharyngeal mucosa only, no exudate Eyes: Conjunctivae: conjunctivae normal Neck: Neck: normal visual inspection, no lymphadenopathy and no meningeal signs Resp: Effort & Inspection: normal respiratory effort Auscultation: clear to auscultation bilaterally Other: slight spasmodic cough is noted during deep inhalation, no rales rhonchi or wheezing noted Cardio: Rate: regular rate Rhythm: regular rhythm Skin: General skin exam: normal color Rashes: no rashes Wounds: no wounds Extrem: General: normal to inspection, no clubbing, cyanosis or edema and no pedal edema Course Course Emergency Course: suspect patient has developed a post viral cough, will treat with a short steroid course, patient per request Tessalon Perles as she reports they work very well for her to control her cough. Close follow-up with her PCP is encouraged in 3-5 days if her symptoms not improving. Patient is agreeable with plan Level of Care: Express Care Visit ([id number]) Vital Signs Vital signs: Vital Signs Temperature 36.3 C L 10/22/24 09:33 Pulse Rate 83 10/22/24 09:33 Respiratory Rate 16 10/22/24 09:33 Blood Pressure 133/67 10/22/24 09:33 Pulse Oximetry 100 10/22/24 09:33 Oxygen Delivery Room Air 10/22/24 09:33 Temperature 36.3 C L 10/22/24 09:33 Pulse Rate 83 10/22/24 09:33 Respiratory Rate 16 10/22/24 09:33 Blood Pressure 133/67 10/22/24 09:33 Pulse Oximetry 100 10/22/24 09:33 Oxygen Delivery Room Air 10/22/24 09:33 MDM - URI/Sore Throat MDM Narrative Medical decision making narrative: prednisone and Tessalon Perles Differential Diagnosis Differential diagnosis: Likely upper respiratory infection, viral infection, bronchitis and other ( post viral cough) Discharge Plan Discharge Clinical Impression: Spasmodic cough Patient Disposition: Home, Self-Care Condition: Stable Instructions: Antibiotic Form, Acute Cough (ED) Additional Instructions: PUSH FLUIDS, REST, COMPLETE ORAL STEROIDS PRESCRIBED, USE TESSALON PERLES FOR COUGH SUPPRESSION YOU HAVE IN THE PAST. SEE YOUR PRIMARY DOCTOR IN 3 DAYS IF SYMPTOMS ARE NOT STARTING TO RESOLVE Patient Language: Portuguese Prescriptions: New benzonatate 100 mg capsule 100 mg PO TID PRN (Reason: cough) Qty: 20 0RF prednisone 20 mg tablet 40 mg PO DAILY 5 Days Qty: 10 0RF No Action bumetanide 2 mg tablet 2 mg PO DAILY clonazepam 0.5 mg tablet 0.5 mg PO DAILY liothyronine 5 mcg tablet 5 mcg PO DAILY diazepam 2 mg tablet 2 mg PO DAILY montelukast 10 mg tablet 10 mg PO DAILY rosuvastatin 10 mg tablet 10 mg PO DAILY levocetirizine 5 mg tablet 5 mg PO DAILY cyclosporine [Restasis] 0.05 % dropperette See Rx Instructions .ROUTE .COMPLEX Rx Instructions: as prescribed Lacrisert 5 mg insert See Rx Instructions .ROUTE .COMPLEX Rx Instructions: as prescribed tizanidine 4 mg capsule 4 mg PO TID PRN (Reason: muscle spasticity) Qty: 14 0RF fish bxg-qcqhn-5-vit C-vit E 2,000-650-12 mg/2.5 gram Emulsion In Packet 2.5 g PO DAILY CoQ10 SG 100 100-100 mg-unit Capsule 1 cap PO DAILY Systane Nighttime 94-3 % Ointment calcium-vitamin D3-vitamin K [Viactiv] 500-500-40 mg-unit-mcg Tablet,Chewable 1 tablet PO DAILY [place] MonoPure Curcumin EC Follow-up/Referrals: Singh,Jaye Nj NP [Primary Care Provider] - Time of Disposition: 11:17
== END 2024-10-22 11:22 | disposition home or self-care (01) ==
PROVIDERS: Emergency Provider Nurse Practitioner Family; PCP Nurse Practitioner Family
DX: R05.8 Other specified cough (principal); E78.00 Pure hypercholesterolemia, unspecified; F41.9 Anxiety disorder, unspecified
CPT/HCPCS: 99213; G0463

== ENCOUNTER 2025-09-07 12:54 | Emergency (ER) | payer MEDICARE, SELFPAY ==
[2025-09-07 13:16] VITALS: BP 144/79; PULSE 72; RESP 18; TEMP 36.8; O2SAT 99
--- NOTE | 2025-09-07 13:27 | ED_ITS ---
HPI - URI/Sore Throat General Chief Complaint: Upper Respiratory Infection Stated Complaint: URI Symptoms Time Seen by Provider: 09/07/25 13:20 Source: patient and RN notes reviewed Mode of arrival: ambulatory Limitations: no limitations History of Present Illness HPI Narrative: 70-year-old female patient today with history of chronic sinusitis and 3 sinus surgeries presents today complaining of 4 day history of scratchy throat with 2 day history of sore throat, ear pain, dry cough. She has tried DayQuil, NyQuil with some relief as well as occasional use of albuterol inhaler for cough. Reports possible sick contact in the [employer]. Denies fever, shortness of breath, wheezing. Related Data Home Medications ?Medication ?Instructions ?Recorded ?Confirmed ?Last Taken ?Type [place] MonoPure Curcumin EC 07/31/21 Unknown History calcium 500 mg-vitamin D3 500 1 tablet PO DAILY 10/10/22 Unknown History unit-vitamin K 40 mcg chewable tablet coenzyme G52-kkgmmns E 100 mg-100 1 cap PO DAILY 07/3110/10/22 Unknown History unit capsule white petrolatum-mineral oil 94 07/31/21 Unknown His tory %-3 % eye ointment (Systane Nighttime) bumetanide 2 mg tablet 2 mg PO DAILY 10/10/2210/10 Unknown History clonazepam 0.5 mg tablet 0.5 mg PO DAILY 10/10/22 Unknown History hydroxypropyl cellulose 5 mg eye See Rx Instructions . Route .COMPLEX 10/10/22 10/10/22 Unknown History inserts (Lacrisert) levocetirizine 5 mg tablet 5 mg PO DAILY 10/10/2209/22 Unknown History montelukast 10 mg tablet 10 mg PO DAILY 10/10/2209/22 Unknown History rosuvastatin 10 mg tablet 10 mg PO DAILY 10/10/2209/22 Unknown History albuterol sulfate 90 mcg/actuation inhalation 09/07/25 Unknown History aerosol inhaler azelastine 137 mcg (0.1 %) nasal intranasal 09/07/25 Unknown History spray diazepam 10 mg tablet mg 09/07/25 Unknown History fluticasone propionate 50 intranasal 09/07/25 Unknown History mcg/actuation nasal spray,suspension icosapent ethyl 1 gram capsule g PO 09/07/25 Unknown History (Vascepa) Allergies Allergy/AdvReac Type Severity Reaction Status Date / Time lifitegrast Allergy Unknown Rash Verified 09/07/25 13:14 moxifloxacin Allergy Unknown Nausea Verified 09/07/25 13:14 amitriptyline AdvReac Unknown Other Verified 09/07/25 13:14 atorvastatin AdvReac Unknown Muscle Verified 09/07/25 13:14 Spasms cefdinir AdvReac Unknown Other Verified 09/07/25 13:14 celecoxib AdvReac Unknown Diarrhea Verified 09/07/25 13:14 duloxetine AdvReac Unknown Other Verified 09/07/25 13:14 erythromycin base AdvReac Unknown Nausea Verified 09/07/25 13:14 levofloxacin AdvReac Unknown Diarrhea Verified 09/07/25 13:14 pravastatin AdvReac Unknown Muscle Verified 09/07/25 13:14 Spasms tetracycline AdvReac Unknown Nausea Verified 09/07/25 13:14 valdecoxib AdvReac Unknown Diarrhea Verified 09/07/25 13:14 jubbanti Allergy Intermediate Blister Uncoded 09/07/25 13:14 PMFSH Past Medical History Medical History High cholesterol Anxiety Dry eye Chronic sinusitis Social History Social History Gender identity (if verbalized by the patient): Female Comments At time of signature, I have reviewed and agree with nursing past medical, surgical, social and family history unless otherwise noted. Please see nursing chart for further information. There is no relevant family history pertinent to the presenting complaint Exam Narrative: GENERAL: Mildly ill-appearing, well-nourished, and in no acute distress. HEAD: Normocephalic, atraumatic. EYES: EOMI. No redness or drainage. Conjunctivae normal. ENT: Mucous membranes pink and moist. Nares congested. No rhinorrhea. TMs normal bilaterally. Throat mildly erythematous with small amount of postnasal drainage noted. Uvula midline. NECK: Normal AROM. Supple. No lymphadenopathy. CHEST: No respiratory distress. Clear to auscultation. HEART: Regular rate and rhythm. No murmur appreciated. EXTREMITIES: Normal range of motion. No edema. SKIN: Warm, dry, no rash. Capillary refill normal. Normal skin turgor. NEURO: No focal deficits. Alert and oriented x3. Gait steady. PSYCH: Normal affect. No signs of depression or anxiety. Course Course Level of Care: Express Care Visit Vital Signs Vital signs: Vital Signs Temperature 98.2 F 09/07/25 13:16 Pulse Rate 72 09/07/25 13:16 Respiratory Rate 18 09/07/25 13:16 Blood Pressure 144/79 H 09/07/25 13:16 Pulse Oximetry 99 09/07/25 13:16 Oxygen Delivery Room Air 09/07/25 13:16 Temperature 98.2 F 09/07/25 13:16 Pulse Rate 72 09/07/25 13:16 Respiratory Rate 18 09/07/25 13:16 Blood Pressure 144/79 H 09/07/25 13:16 Pulse Oximetry 99 09/07/25 13:16 Oxygen Delivery Room Air 09/07/25 13:16 Reviewed [facility] MDM Narrative Medical decision making narrative: 70-year-old female patient today with history of chronic sinusitis and 3 sinus surgeries presents today complaining of 4 day history of scratchy throat with 2 day history of sore throat, ear pain, dry cough. She has tried DayQuil, NyQuil with some relief as well as occasional use of albuterol inhaler for cough. Reports possible sick contact in the [employer]. Denies fever, shortness of breath, wheezing. Upon exam, patient is mildly ill appearing with nasal congestion and mildly erythematous throat. Rapid strep negative with culture pending, COVID negative, influenza negative. Symptoms likely viral in etiology. Discussed [id number] medication use and duration of illness. No prescription medications indicated at this time. Anticipatory guidance given. Patient agrees with plan. Vital signs stable with mildly elevated blood pressure Differential Diagnosis Differential Diagnosis: COVID, influenza, strep throat, URI, pharyngitis, AOM Lab Data [facility] Lab Attestation statement: I personally reviewed the patient's lab results. Lab results narrative: COVID negative, influenza negative, rapid strep negative Critical Care Time Critical Care Time Critical Care Time: No Discharge Plan Discharge Clinical Impression: Upper respiratory infection Qualifiers: URI type: unspecified URI Qualified Code(s): J06.9 - Acute upper respiratory infection, unspecified Patient Disposition: Home Condition: Stable Instructions: Upper Respiratory Infection (DC) Additional Instructions: Your COVID-19, influenza, and rapid strep swab were negative today at [facility]. You will be notified in a few days if the culture comes back positive for strep, and appropriate antibiotics will be called in for you at that time. Your symptoms are likely due to a viral illness, which is not treated with antibiotics. Viral symptoms can be present for up to 7-10 days. Take Tylenol for fever or pain. Rest and stay hydrated. Follow up with your PCP in 5-7 days if symptoms are not improving. Go to the ER immediately if you have any difficulty breathing or swallowing, or develop a new fever greater than 100.3. Patient Language: Mohawk Prescriptions: No Action bumetanide 2 mg tablet 2 mg PO DAILY clonazepam 0.5 mg tablet 0.5 mg PO DAILY montelukast 10 mg tablet 10 mg PO DAILY rosuvastatin 10 mg tablet 10 mg PO DAILY levocetirizine 5 mg tablet 5 mg PO DAILY Lacrisert 5 mg insert See Rx Instructions .ROUTE .COMPLEX Rx Instructions: as prescribed azelastine 137 mcg (0.1 %) spray,non-aerosol INTRANASAL diazepam 10 mg tablet albuterol sulfate 90 mcg/actuation HFA aerosol inhaler INHALATION fluticasone propionate 50 mcg/actuation spray,suspension INTRANASAL icosapent ethyl [Vascepa] 1 gram capsule PO CoQ10 SG 100 100-100 mg-unit Capsule 1 cap PO DAILY Systane Nighttime 94-3 % Ointment calcium-vitamin D3-vitamin K [Viactiv] 500-500-40 mg-unit-mcg Tablet,Chewable 1 tablet PO DAILY [place] MonoPure Curcumin EC Follow-up/Referrals: Sinai,Jaye Nj NP [Primary Care Provider, Unknown] Time of Disposition: 13:33
[2025-09-07 14:01] LABS: EDSTREPNEGPOS1 Negative (Negative)
[2025-09-07 14:01] LABS: EDCOVIDSCREEN Negative (Negative); EDINFLUASCREEN Negative (Negative); EDINFLUBSCREEN Negative (Negative); EDSTREPNEGPOS1 Negative (Negative)
--- OUTSIDE RECORDS SUMMARY | 2025-09-07 14:52 | XMS_ITS | Clinical Summary ---
[facility] Address [address] [place] [address] Care Team Providers Care Cobbler Mckay Name Role Phone Unavailable Primary Care Provider Unavailabl e Allergies Active Allergy Reactions Criticality Noted Date Comments Amitriptyline Hypertension Medium 03/10/2023 Ferrous Sulfate Swelling Low 03/10/2023 Medications estradioL (ESTRACE) 0.01% (0.1 mg/g) vaginal cream 0.1 mg. Active fluticasone propionate (FLONASE) 50 mcg/spray [place], Suspension nasal inhaler Administer 2 Sprays in [...] 73 03/10/2023 1:28 PM CDT Temperature 36.4 C (97.6 F) 03/10/2023 1:28 PM CDT Respiratory Rate 10 03/10/2023 1:28 PM CDT Oxygen Saturation 100% 03/10/2023 1:28 PM CDT Inhaled Oxygen Concentration - - Weight 66.2 kg (146 lb) 03/10/2023 1:28 PM CDT Height 154.9 cm (5' 1) 03/10/2023 1:28 PM CDT Body Mass Index 27.59 03/10/2023 1:28 PM CDT Plan of Treatment Health Maintenance Due Date Last Done Comments DTAP/TDAP/TD VACCINES (1 - Tdap) 1976 BREAST CANCER SCREENING 1997 FIT-DNA Q 3 years 2002 FIT/FOBT Q 1 year 2002 Flex Sig/CT Colonography Q 5 years 2002 PNEUMOCOCCAL VACCINE 50+ YEARS (1 of 1 - PCV) 05/07/20 07 ZOSTER VACCINE (1 of 2) 2007 OSTEOPOROSIS SCREENING 2022 INFLUENZA VACCINE (#1) 2025 RSV VACCINE (60+ or ) (1 - 1-dose 75+ series) 2032 COLORECTAL SCREENING 11/27/2032 11/27/2022 Colorectal Cancer Screening 11/27/2032 Insurance [facility] [id number]
--- OUTSIDE RECORDS SUMMARY | 2025-09-07 14:52 | XMS_ITS | Data Portability ---
Author Organization [facility], Main Office Address [address] [place] [address] Care Team Providers Care Visual Basic Developer Name Role Phone MAGALYS GONZALES Primary Care Provider MAGALYS GONZALES Referring Provider Assessment No assessment recorded. Plan of Treatment Reminders Order Date Submit Date Provider Last Modified By Organization Details Last Modified Time Details Appointments Follow Up 30 2025 02:00P Rosaline Winters NP Not available Not available Not available Lab BMP, serum or plasma 2024 025 [facility], [address], [place], [address], 07/12/2025 09:47:29 T3, free, serum or plasma 2024 025 [facility], [address], [place], [address], 07/12/2025 09:47:31 T4, total, serum 2024 025 [facility], [address], [place], [address], 07/12/2025 09:47:30 TSH, serum or plasma 2024 025 [facility], [address], [place], [address], 07/12/2025 09:47:30 lipid panel, serum 2024 025 [facility], [address], [place], [address], 01/08/2025 04:20:23 TSH + free T4, serum 2024 025 [facility], [address], [place], [address], 01/08/2025 04:20:24 CBC w/ auto diff 2024 025 [facility], [address], [place], [address], 01/08/2025 04:20:25 iron + TIBC + ferritin, serum 2024 025 [facility], [address], [place], [address], 01/08/2025 04:20:21 lipid panel, serum 2023 024 [facility] Not available 07/21/2024 08:10:53 hepatic function panel, serum 2023 024 [facility] Not available 07/21/2024 08:10:57 BMP, serum or plasma 2023 024 [facility] Not available 07/21/2024 08:10:56 vitamin D, 25-hydrox y, total, serum 2023 024 [facility] Not available 07/21/2024 08:11:02 TSH, serum or plasma 2023 024 [facility] Not available 07/21/2024 08:11:01 T4, free, serum 2023 024 [facility] Not available 07/21/2024 08:11:00 ferritin, serum or plasma 2023 024 [facility] Not available 07/21/2024 08:10:59 iron + total iron-bind ing capacity (TIBC), serum 2023 024 [facility] Not available 07/21/2024 08:10:55 CBC w/ auto diff 2023 024 [facility] Not available 07/21/2024 08:10:58 BMP, serum or plasma 2023 024 [email or web address] 77 Not available 02/19/2024 07:51:10 lipid panel, serum 2023 024 77 Not available 02/19/2024 07:51:09 hepatic function panel, serum 2023 024 [email or web address] 77 Not available 02/19/2024 07:51:10 vitamin D, 25-hydrox y, total, serum 2023 024 [email or web address] 77 Not available 02/19/2024 07:51:09 TSH, serum or plasma 2023 024 [email or web address] 77 Not available 02/19/2024 07:51:09 T4, free, serum 2023 024 77 Not available 02/19/2024 07:51:09 ferritin, serum or plasma 2023 024 [email or web address] 77 Not available 02/19/2024 07:51:09 iron + total iron-bind ing capacity (TIBC), serum 2023 024 [email or web address] 77 Not available 02/19/2024 07:51:09 CBC w/ auto diff 2023 024 [email or web address] 77 Not available 02/19/2024 07:51:09 Referral None recorded. Procedures None recorded. Surgeries None recorded. Imaging MAMMO, screening , digital, bilateral - *Please call pt to schedule* 2023 024 56 [place] [facility] (Radiology), [address] [facility] [place], [address], 01/22/2024 09:54:47 DEXA - *Please call pt to schedule* 2023 024 56 [facility] [place] (Radiology), [address] [facility] , [place], [address], 01/22/2024 09:54:47 Medication Orders Prolia 60 mg/mL subcutane ous syringe 2024 025 [id number], [address], [place], [place], [id number], 07/11/2025 15:27:45 Prolia 60 mg/mL subcutane ous syringe 2023 024 [email or web address] [facility][id number], [address], [place], [place], [id number], 07/11/2025 15:04:47 zolpidem 10 mg tablet 2023 024 [email or web address] [facility] #[id number], [address], [place], [place], [id number], 01/06/2025 15:08:52 Zithromax Z-Jatinder 250 mg tablet 2023 024 [email or web address] [facility][id number], [address], [place], [place], [id number], 06/04/2024 14:56:37 Patient TargetsNo targets recorded. Patient Instructions Encounter Date Encounter Id Patient Instructions Last Modified By Organization Details Last Modified Time 11/20/2023 [id number] Personalized a lt Plan and Screening Recommendations Advance Directives - Do you have one? Advance Directives - Do we have your advance directive on file in your health record? Primary Prevention/Interven tion (prevents or decreases the chance of common diseases from occurring) Smoking Risk: Alcohol Misuse Screening: Weight: Physical activity: Nutrition: Fall Risk (screened today): Vaccines Pneumococcal: Influenza: Chronic Disease Risks Stroke: Active diagnosis, Continue current treatment plan Heart Attack: Active diagnosis, Continue current treatment plan Clogging of the Arteries: Active diagnosis, Continue current treatment plan Diabetes: Active diagnosis, Continue current treatment plan Secondary Prevention/Interven tion (detects treatable diseases before they may cause symptoms, disability, or ) Breast Cancer Screening with mammogram: Cervical/Uterine/Ov bipin Cancer Screening: Osteoporosis Screening: Date Screening Last Performed: Colon Cancer Screening: Date Screening Last Performed: Eye Disease Screening: Your next exam in: Dementia Risk: Depression Screening: Active diagnosis, Continue current treatment plan Not available 11/20/2023 15:21:06 12/23/2023 [id number] Personalized [facility] Plan and Screening Recommendations Advance Directives - Do you have one? Advance Directives - Do we have your advance directive on file in your health record? Primary Prevention/Interven tion (prevents or decreases the chance of common diseases from occurring) Smoking Risk: Alcohol Misuse Screening: Weight: Physical activity: Nutrition: Fall Risk (screened today): Vaccines Pneumococcal: Influenza: Your next one in the fall of this year Chronic Disease Risks Stroke: Active diagnosis, Continue current treatment plan Heart Attack: Active diagnosis, Continue current treatment plan Clogging of the Arteries: Active diagnosis, Continue current treatment plan Diabetes: Active diagnosis, Continue current treatment plan Secondary Prevention/Interven tion (detects treatable diseases before they may cause symptoms, disability, or ) Breast Cancer Screening with mammogram: Cervical/Uterine/Ov bipin Cancer Screening: Osteoporosis Screening: Date Screening Last Performed: Colon Cancer Screening: Date Screening Last Performed: Eye Disease Screening: Your next exam in: Dementia Risk: Depression Screening: Active diagnosis, Continue current treatment plan [email or web address] Not available 12/23/2023 15:31:33 Reason for Referral None Reported. Results Created Date Observation Date Name Description Value Unit Range Abnormal Flag Note LastModifiedBy Organization Detail LastModifiedTime 11/12/1911/13/2023 CBC (INCL UDES DIFF/ PLT) white blood cell count 8.3 thous and/u L 3.8-10 .8 normal Not Available [facility] [id number] [place] [address], [address], 11/13/2023 07:22:17 11/12/19 24 11/13/2023 CBC (INCL UDES DIFF/ PLT) red blood cell count 5.30 maria teresa on/uL 3.80-5 .10 high Not Available [address], [address], 11/13/2023 07:22:17 11/12/19 24 11/13/2023 CBC (INCL UDES DIFF/ PLT) hemoglobin 15.7 g/dL 11.7-1 5.5 high Not Available [address], [address], 11/13/2023 07:22:17 11/12/19 24 11/13/2023 CBC (INCL UDES DIFF/ PLT) hematocrit 47.0 % 35.0-4 5.0 high Not Available [address], [address], 11/13/2023 07:22:17 11/12/19 24 11/13/2023 CBC (INCL UDES DIFF/ PLT) MCV 88.7 fL 80.0-1 00.0 normal Not Available [address], [address], 11/13/2023 07:22:17 11/12/19 24 11/13/2023 CBC (INCL UDES DIFF/ PLT) MCH 29.6 pg 27.0-3 3.0 normal Not Available [address], [address], 11/13/2023 07:22:17 11/12/19 24 11/13/2023 CBC (INCL UDES DIFF/ PLT) MCHC 33.4 g/dL 32.0-3 6.0 normal Not Available [address], [address], 11/13/2023 07:22:17 11/12/19 24 11/13/2023 CBC (INCL UDES DIFF/ PLT) RDW 13.1 % 11.0-1 5.0 normal Not Available [address], [address], 11/13/2023 07:22:17 11/12/19 24 11/13/2023 CBC (INCL UDES DIFF/ PLT) platelet count 247 thous and/u L 140-40 0 normal Not Available [address], [address], 11/13/2023 07:22:17 11/12/19 24 11/13/2023 CBC (INCL UDES DIFF/ PLT) MPV 11.3 fL 7.5-12 .5 normal Not Available [address], [address], 11/13/2023 07:22:17 11/12/19 24 11/13/2023 CBC (INCL UDES DIFF/ PLT) absolute neutrophils 6524 cells /uL 1500-7 800 normal Not Available [address], [address], 11/13/2023 07:22:17 11/12/19 24 11/13/2023 CBC (INCL UDES DIFF/ PLT) absolute lymphocytes 1112 cells /uL 850-39 00 normal Not Available [address], [address], 11/13/2023 07:22:17 11/12/19 24 11/13/2023 CBC (INCL UDES DIFF/ PLT) absolute monocytes 448 cells /uL 200-95 0 normal Not Available [address], [address], 11/13/2023 07:22:17 11/12/19 24 11/13/2023 CBC (INCL UDES DIFF/ PLT) absolute eosinophils 183 cells /uL 15-500 normal Not Available [address], [address], 11/13/2023 07:22:17 11/12/19 24 11/13/2023 CBC (INCL UDES DIFF/ PLT) absolute basophils 33 cells /uL 0-200 normal Not Available [address], [address], 11/13/2023 07:22:17 11/12/19 24 11/13/2023 CBC (INCL UDES DIFF/ PLT) neutrophils 78.6 % normal Not Available [address], [address], 11/13/2023 07:22:17 11/12/19 24 11/13/2023 CBC (INCL UDES DIFF/ PLT) lymphocytes 13.4 % normal Not Available [address], [address], 11/13/2023 07:22:17 11/12/19 24 11/13/2023 CBC (INCL UDES DIFF/ PLT) monocytes 5.4 % normal Not Available [address], [address], 11/13/2023 07:22:17 11/12/19 24 11/13/2023 CBC (INCL UDES DIFF/ PLT) eosinophils 2.2 % normal Not Available [address], [address], 11/13/2023 07:22:17 11/12/19 24 11/13/2023 CBC (INCL UDES DIFF/ PLT) basophils 0.4 % normal Not Available [address], [address], 11/13/2023 07:22:17 11/19/19 24 11/20/2023 IRON AND TOTAL IRON DELORES NG CAPAC ITY iron, total 126 mcg/d L 45-160 normal Not Available [address], [address], 11/20/2023 10:44:06 11/19/19 24 11/20/2023 IRON AND TOTAL IRON DELORES NG CAPAC ITY iron binding capacity 361 mcg/d L_(ca lc) 250-45 0 normal Not Available [address], [address], 11/20/2023 10:44:06 11/19/19 24 11/20/2023 IRON AND TOTAL IRON DELORES NG CAPAC ITY % saturation 35 %_(ca lc) 16-45 normal Not Available [address], [address], 11/20/2023 10:44:06 11/19/19 24 11/20/2023 EMMANUELLE TIN ferritin 38 NG/mL 16-288 normal Not Available [address], [address], 11/20/2023 10:44:08 01/07/20 24 01/08/2024 LIPID PANEL , STAND JORGE cholesterol, total 189 mg/dL <200 normal Not Available [address], [address], 01/08/2024 13:48:17 01/07/20 24 01/08/2024 LIPID PANEL , STAND JORGE HDL cholesterol 69 mg/dL > or = 50 normal Not Available [address], [address], 01/08/2024 13:48:17 01/07/20 24 01/08/2024 LIPID PANEL , STAND JORGE triglyceride s 175 mg/dL <150 high Not Available [address], [address], 01/08/2024 13:48:17 01/07/20 24 01/08/2024 LIPID PANEL [...] calcu lated using the Amy n-Hop kins ailinu bryant n, which is a valid ated novel metho d becky ibarra than the Fried remy equat ion in the estim ation of LDL-C . Amy wood SS et al. MILADY. 2013; 310(1 9): 2061- 2068 (http ://ed ucati on.Qu estSonya FitWithMes. com/f aq/FA Q164) Not Available [address] [address] [place], [address], 01/08/2024 13:48:17 01/07/20 24 01/08/2024 LIPID PANEL , STAND JORGE chol/HDLC ratio 2.7 (calc ) <5.0 normal Not Available [address] [address] [place], [address], 01/08/2024 13:48:17 01/07/20 24 01/08/2024 LIPID PANEL , STAND JORGE non HDL cholesterol 120 mg/dL _(antolin c) <130 normal For patie nts with diabe darcie plus 1 major ASCVD risk facto r, treat ing to a non-H DL-C goal of <100 mg/dL (LDL- C of <70 mg/dL ) is consi madhavid a apolinara chaim c optio n. Not Available [address] [address] [place], [address], 01/08/2024 13:48:17 01/07/20 24 01/08/2024 IRON AND TOTAL IRON DELORES NG CAPAC ITY iron, total 89 mcg/d L 45-160 normal Not Available [address] [address] [place], [address], 01/08/2024 13:48:18 01/07/20 24 01/08/2024 IRON AND TOTAL IRON DELORES NG CAPAC ITY iron binding capacity 395 mcg/d L_(ca lc) 250-45 0 normal Not Available [address] [address] [place], [address], 01/08/2024 13:48:18 01/07/20 24 01/08/2024 IRON AND TOTAL IRON DELORES NG CAPAC ITY % saturation 23 %_(ca lc) 16-45 normal Not Available [address], [address], 01/08/2024 13:48:18 01/07/20 24 01/08/2024 BASIC METAB OLIC PANEL glucose 98 mg/dL 65-139 normal Non-f astin g refer ence inter ivette Not Available [address], [address], 01/08/2024 13:48:18 01/07/20 24 01/08/2024 BASIC METAB OLIC PANEL urea nitrogen (BUN) 18 mg/dL 7-25 normal Not Available [address], [address], 01/08/2024 13:48:18 01/07/20 24 01/08/2024 BASIC METAB OLIC PANEL creatinine 0.72 mg/dL 0.50-1 .05 normal Not Available [address], [address], 01/08/2024 13:48:18 01/07/20 24 01/08/2024 BASIC METAB OLIC PANEL eGFR 92 mL/mi n/1.7 3m2 > or = 60 normal Not Available [address], [address], 01/08/2024 13:48:18 01/07/20 24 01/08/2024 BASIC METAB OLIC PANEL BUN/creatini ne ratio SEE NOTE: (calc ) 6-22 Not Repor nel: BUN and Creat inine are withi n refer ence range . Not Available [address], [address], 01/08/2024 13:48:18 01/07/20 24 01/08/2024 BASIC METAB OLIC PANEL sodium 138 mmol/ L 135-14 6 normal Not Available [address], [address], 01/08/2024 13:48:18 01/07/20 24 01/08/2024 BASIC METAB OLIC PANEL potassium 3.5 mmol/ L 3.5-5. 3 normal Not Available [address], [address], 01/08/2024 13:48:18 01/07/20 24 01/08/2024 BASIC METAB OLIC PANEL chloride 93 mmol/ L 98-110 low Not Available [address], [address], 01/08/2024 13:48:18 01/07/20 24 01/08/2024 BASIC METAB OLIC PANEL carbon dioxide 32 mmol/ L 20-32 normal Not Available [address], [address], 01/08/2024 13:48:18 01/07/20 24 01/08/2024 BASIC METAB OLIC PANEL calcium 9.7 mg/dL 8.6-10 .4 normal Not Available [address], [address], 01/08/2024 13:48:18 01/07/20 24 01/08/2024 HEPAT IC FUNCT ION PANEL protein, total 7.0 g/dL 6.1-8. 1 normal Not Available [address], [address], 01/08/2024 13:48:19 01/07/20 24 01/08/2024 HEPAT IC FUNCT ION PANEL albumin 4.5 g/dL 3.6-5. 1 normal Not Available [address], [address], 01/08/2024 13:48:19 01/07/20 24 01/08/2024 HEPAT IC FUNCT ION PANEL globulin 2.5 g/dL_ (calc ) 1.9-3. 7 normal Not Available [address], [address], 01/08/2024 13:48:19 01/07/20 24 01/08/2024 HEPAT IC FUNCT ION PANEL albumin/glob ulin ratio 1.8 (calc ) 1.0-2. 5 normal Not Available [address], [address], 01/08/2024 13:48:19 01/07/20 24 01/08/2024 HEPAT IC FUNCT ION PANEL bilirubin, total 0.4 mg/dL 0.2-1. 2 normal Not Available [address], [address], 01/08/2024 13:48:19 01/07/20 24 01/08/2024 HEPAT IC FUNCT ION PANEL bilirubin, direct 0.1 mg/dL < or = 0.2 normal Not Available [address], [address], 01/08/2024 13:48:19 01/07/20 24 01/08/2024 HEPAT IC FUNCT ION PANEL bilirubin, indirect 0.3 mg/dL _(antolin c) 0.2-1. 2 normal Not Available [address], [address], 01/08/2024 13:48:19 01/07/20 24 01/08/2024 HEPAT IC FUNCT ION PANEL alkaline phosphatase 73 U/L 37-153 normal Not Available [address] [address] [place], [address], 01/08/2024 13:48:19 01/07/20 24 01/08/2024 HEPAT IC FUNCT ION PANEL AST 21 U/L 10-35 normal Not Available [address], [address], 01/08/2024 13:48:19 01/07/20 24 01/08/2024 HEPAT IC FUNCT ION PANEL ALT 17 U/L 6-29 normal Not Available [address], [address], 01/08/2024 13:48:19 01/07/20 24 01/08/2024 CBC (INCL UDES DIFF/ PLT) white blood cell count 9.4 thous and/u L 3.8-10 .8 normal Not Available [address], [address], 01/08/2024 13:48:19 01/07/20 24 01/08/2024 CBC (INCL UDES DIFF/ PLT) red blood cell count 5.11 maria teresa on/uL 3.80-5 .10 high Not Available [address], [address], 01/08/2024 13:48:19 01/07/20 24 01/08/2024 CBC (INCL UDES DIFF/ PLT) hemoglobin 15.1 g/dL 11.7-1 5.5 normal Not Available [address], [address], 01/08/2024 13:48:19 01/07/20 24 01/08/2024 CBC (INCL UDES DIFF/ PLT) hematocrit 45.9 % 35.0-4 5.0 high Not Available [address], [address], 01/08/2024 13:48:19 01/07/20 24 01/08/2024 CBC (INCL UDES DIFF/ PLT) MCV 89.8 fL 80.0-1 00.0 normal Not Available [address], [address], 01/08/2024 13:48:19 01/07/20 24 01/08/2024 CBC (INCL UDES DIFF/ PLT) MCH 29.5 pg 27.0-3 3.0 normal Not Available [address], [address], 01/08/2024 13:48:19 01/07/20 24 01/08/2024 CBC (INCL UDES DIFF/ PLT) MCHC 32.9 g/dL 32.0-3 6.0 normal Not Available [address], [address], 01/08/2024 13:48:19 01/07/20 24 01/08/2024 CBC (INCL UDES DIFF/ PLT) RDW 12.6 % 11.0-1 5.0 normal Not Available [address], [address], 01/08/2024 13:48:19 01/07/20 24 01/08/2024 CBC (INCL UDES DIFF/ PLT) platelet count 266 thous and/u L 140-40 0 normal Not Available [address], [address], 01/08/2024 13:48:19 01/07/20 24 01/08/2024 CBC (INCL UDES DIFF/ PLT) MPV 11.5 fL 7.5-12 .5 normal Not Available [address], [address], 01/08/2024 13:48:19 01/07/20 24 01/08/2024 CBC (INCL UDES DIFF/ PLT) absolute neutrophils 7078 cells /uL 1500-7 800 normal Not Available [address], [address], 01/08/2024 13:48:19 01/07/20 24 01/08/2024 CBC (INCL UDES DIFF/ PLT) absolute lymphocytes 1438 cells /uL 850-39 00 normal Not Available [address], [address], 01/08/2024 13:48:19 01/07/20 24 01/08/2024 CBC (INCL UDES DIFF/ PLT) absolute monocytes 677 cells /uL 200-95 0 normal Not Available [address], [address], 01/08/2024 13:48:19 01/07/20 24 01/08/2024 CBC (INCL UDES DIFF/ PLT) absolute eosinophils 169 cells /uL 15-500 normal Not Available [address], [address], 01/08/2024 13:48:19 01/07/20 24 01/08/2024 CBC (INCL UDES DIFF/ PLT) absolute basophils 38 cells /uL 0-200 normal Not Available [address], [address], 01/08/2024 13:48:19 01/07/20 24 01/08/2024 CBC (INCL UDES DIFF/ PLT) neutrophils 75.3 % normal Not Available [address], [address], 01/08/2024 13:48:19 01/07/20 24 01/08/2024 CBC (INCL UDES DIFF/ PLT) lymphocytes 15.3 % normal Not Available [address], [address], 01/08/2024 13:48:19 01/07/20 24 01/08/2024 CBC (INCL UDES DIFF/ PLT) monocytes 7.2 % normal Not Available [address], [address], 01/08/2024 13:48:19 01/07/20 24 01/08/2024 CBC (INCL UDES DIFF/ PLT) eosinophils 1.8 % normal Not Available [facility] [address], [address], 01/08/2024 13:48:19 01/07/20 24 01/08/2024 CBC (INCL UDES DIFF/ PLT) basophils 0.4 % normal Not Available [address], [address], 01/08/2024 13:48:19 01/07/20 24 01/08/2024 EMMANUELLE TIN ferritin 24 NG/mL 16-288 normal Not Available [facility] [address], [address], 01/08/2024 13:48:19 01/07/20 24 01/08/2024 T4, FREE T4, free 1.1 NG/dL 0.8-1. 8 normal Not Available [address], [address], 01/08/2024 13:48:20 01/07/20 24 01/08/2024 TSH TSH 4.27 mIU/L 0.40-4 .50 normal Not Available [address], [address], 01/08/2024 13:48:21 01/07/20 24 01/08/2024 VITAM IN [...] /MS is recom hilda d: order code 26990 (rebeka ents >2yrs ). See Note 1 Note 1 For addit ional infor cathi sierra e refer to http: //[facility] Danielia delaney ics.c om/fa q/FAQ 199 (This link is being provi ded for infor consuelo ngo/ educmaddi joseph purpo ses only. ) Not Available [facility] [address], [address], 01/08/2024 13:48:21 07/20/2007/21/2024 LIPID PANEL , STAND JORGE cholesterol, total 218 mg/dL <200 high Not Available [address], [address], 07/21/2024 08:10:53 07/20/2007/21/2024 LIPID PANEL , STAND JORGE HDL cholesterol 57 mg/dL > or = 50 normal Not Available [address], [address], 07/21/2024 08:10:53 07/20/2007/21/2024 LIPID PANEL , STAND JORGE triglyceride s 211 mg/dL <150 high If a non-f astin g speci men was colle cted, consi nataliia repea t trigl yceri de testi ng on a fasti ng speci men if clini ayush indic ated. Spike armstrong et al. J. of Clin. Lipid ol. 2015; 9:129 -169. Not Available [address], [address], 07/21/2024 08:10:53 07/20/2007/21/2024 LIPID PANEL , STAND JORGE LDL-choleste rol 126 mg/dL _(antolin c) high Refer ence range : <100 Mejia able range <100 mg/dL for prima ry preve ntion ; <70 mg/dL for patie nts with CHD or diabe tic patie nts with > or = 2 CHD risk facto rs. LDL-C is now calcu lated using the Amy [facility] kins jamie wood, which is a valid ated novel metho d provi isabell garcíate r accur acy than the Fried remy equat ion in the estim ation of LDL-C . Amy wood SS et al. MILADY. 2013; 310(1 9): 2061- 2068 (http ://ed ucati on.[employer]. com/f aq/FA Q164) Not Available [address] [address] [place], [address], 07/21/2024 08:10:53 07/20/2007/21/2024 LIPID PANEL , STAND JORGE chol/HDLC ratio 3.8 (calc ) <5.0 normal Not Available [address] [address] [place], [address], 07/21/2024 08:10:53 07/20/2007/21/2024 LIPID PANEL , STAND JORGE non HDL cholesterol 161 mg/dL _(antolin c) <130 high For patie nts with diabe darcie plus 1 major ASCVD risk facto r, treat ing to a non-H DL-C goal of <100 mg/dL (LDL- C of <70 mg/dL ) is edvin rivero optio n. Not Available [address] [address] [place], [address], 07/21/2024 08:10:53 07/20/20 24 07/21/2024 IRON AND TOTAL IRON DELORES NG CAPAC ITY iron, total 125 mcg/d L 45-160 normal Not Available [address] [address] [place], [address], 07/21/2024 08:10:54 07/20/2007/21/2024 IRON AND TOTAL IRON DELORES NG CAPAC ITY iron binding capacity 348 mcg/d L_(ca lc) 250-45 0 normal Not Available [address] [address] [place], [address], 07/21/2024 08:10:54 07/20/20 24 07/21/2024 IRON AND TOTAL IRON DELORES NG CAPAC ITY % saturation 36 %_(ca lc) 16-45 normal Not Available [address] [place], [address], 07/21/2024 08:10:54 07/20/20 24 07/21/2024 BASIC METAB OLIC PANEL glucose 93 mg/dL 65-99 normal Fasti ng refer ence inter ivette Not Available [address], [address], 07/21/2024 08:10:56 07/20/2007/21/2024 BASIC METAB OLIC PANEL urea nitrogen (BUN) 19 mg/dL 7-25 normal Not Available [address], [address], 07/21/2024 08:10:56 07/20/20 24 07/21/2024 BASIC METAB OLIC PANEL creatinine 0.63 mg/dL 0.50-1 .05 normal Not Available [address], [address], 07/21/2024 08:10:56 07/20/20 24 07/21/2024 BASIC METAB OLIC PANEL eGFR 97 mL/mi n/1.7 3m2 > or = 60 normal Not Available [address], [address], 07/21/2024 08:10:56 07/20/20 24 07/21/2024 BASIC METAB OLIC PANEL BUN/creatini ne ratio SEE NOTE: (calc ) 6-22 Not Repor nel: BUN and Creat inine are withi n refer ence range . Not Available [address], [address], 07/21/2024 08:10:56 07/20/20 24 07/21/2024 BASIC METAB OLIC PANEL sodium 140 mmol/ L 135-14 6 normal Not Available [address], [address], 07/21/2024 08:10:56 07/20/2007/21/2024 BASIC METAB OLIC PANEL potassium 4.2 mmol/ L 3.5-5. 3 normal Not Available [address], [address], 07/21/2024 08:10:56 07/20/2007/21/2024 BASIC METAB OLIC PANEL chloride 103 mmol/ L 98-110 normal Not Available [address], [address], 07/21/2024 08:10:56 07/20/2007/21/2024 BASIC METAB OLIC PANEL carbon dioxide 28 mmol/ L 20-32 normal Not Available [address], [address], 07/21/2024 08:10:56 07/20/2007/21/2024 BASIC METAB OLIC PANEL calcium 9.0 mg/dL 8.6-10 .4 normal Not Available [address], [address], 07/21/2024 08:10:56 07/20/2007/21/2024 HEPAT IC FUNCT ION PANEL protein, total 6.3 g/dL 6.1-8. 1 normal Not Available [address], [address], 07/21/2024 08:10:57 07/20/2007/21/2024 HEPAT IC FUNCT ION PANEL albumin 4.0 g/dL 3.6-5. 1 normal Not Available [address], [address], 07/21/2024 08:10:57 07/20/2007/21/2024 HEPAT IC FUNCT ION PANEL globulin 2.3 g/dL_ (calc ) 1.9-3. 7 normal Not Available [address], [address], 07/21/2024 08:10:57 07/20/2007/21/2024 HEPAT IC FUNCT ION PANEL albumin/glob ulin ratio 1.7 (calc ) 1.0-2. 5 normal Not Available [address], [address], 07/21/2024 08:10:57 07/20/2007/21/2024 HEPAT IC FUNCT ION PANEL bilirubin, total 0.5 mg/dL 0.2-1. 2 normal Not Available [address], [address], 07/21/2024 08:10:57 07/20/2007/21/2024 HEPAT IC FUNCT ION PANEL bilirubin, direct 0.1 mg/dL < or = 0.2 normal Not Available [address], [address], 07/21/2024 08:10:57 07/20/20 24 07/21/2024 HEPAT IC FUNCT ION PANEL bilirubin, indirect 0.4 mg/dL _(antolin c) 0.2-1. 2 normal Not Available [address], [address], 07/21/2024 08:10:57 07/20/2007/21/2024 HEPAT IC FUNCT ION PANEL alkaline phosphatase 62 U/L 37-153 normal Not Available [facility] [employer] [address], [address], 07/21/2024 08:10:57 07/20/20 24 07/21/2024 HEPAT IC FUNCT ION PANEL AST 26 U/L 10-35 normal Not Available [address], [address], 07/21/2024 08:10:57 07/20/2007/21/2024 HEPAT IC FUNCT ION PANEL ALT 24 U/L 6-29 normal Not Available [address], [address], 07/21/2024 08:10:57 07/20/2007/21/2024 CBC (INCL UDES DIFF/ PLT) white blood cell count 6.0 thous and/u L 3.8-10 .8 normal Not Available [address], [address], 07/21/2024 08:10:58 07/20/2007/21/2024 CBC (INCL UDES DIFF/ PLT) red blood cell count 4.95 maria teresa on/uL 3.80-5 .10 normal Not Available [address], [address], 07/21/2024 08:10:58 07/20/20 24 07/21/2024 CBC (INCL UDES DIFF/ PLT) hemoglobin 14.7 g/dL 11.7-1 5.5 normal Not Available [address], [address], 07/21/2024 08:10:58 07/20/2007/21/2024 CBC (INCL UDES DIFF/ PLT) hematocrit 46.7 % 35.0-4 5.0 high Not Available [address], [address], 07/21/2024 08:10:58 07/20/2007/21/2024 CBC (INCL UDES DIFF/ PLT) MCV 94.3 fL 80.0-1 00.0 normal Not Available [address], [address], 07/21/2024 08:10:58 07/20/2007/21/2024 CBC (INCL UDES DIFF/ PLT) MCH 29.7 pg 27.0-3 3.0 normal Not Available [facility] [address], [address], 07/21/2024 08:10:58 07/20/2007/21/2024 CBC (INCL UDES DIFF/ PLT) MCHC 31.5 g/dL 32.0-3 6.0 low For adult s, a sligh t decre ase in the calcu lated MCHC value (in the range of 30 to 32 g/dL) is most likel y not clini ayush signi fican t; wendy er, it shoul d be inter prete d with cauti on in [facility] n with other red cell alexus eters and the patie nt's clini antolin condi tion. Not Available [facility] [address], [address], 07/21/2024 08:10:58 07/20/20 24 07/21/2024 CBC (INCL UDES DIFF/ PLT) RDW 12.8 % 11.0-1 5.0 normal Not Available [facility] [address], [address], 07/21/2024 08:10:58 07/20/20 24 07/21/2024 CBC (INCL UDES DIFF/ PLT) platelet count 271 thous and/u L 140-40 0 normal Not Available [facility] [address], [address], 07/21/2024 08:10:58 07/20/20 24 07/21/2024 CBC (INCL UDES DIFF/ PLT) MPV 10.7 fL 7.5-12 .5 normal Not Available [facility] [address], [address], 07/21/2024 08:10:58 07/20/20 24 07/21/2024 CBC (INCL UDES DIFF/ PLT) absolute neutrophils 3048 cells /uL 1500-7 800 normal Not Available [facility] [place] [address] [address], [place], [address], 07/21/2024 08:10:58 07/20/2007/21/2024 CBC (INCL UDES DIFF/ PLT) absolute lymphocytes 1824 cells /uL 850-39 00 normal Not Available [address], [address], 07/21/2024 08:10:58 07/20/2007/21/2024 CBC (INCL UDES DIFF/ PLT) absolute monocytes 528 cells /uL 200-95 0 normal Not Available [address], [address], 07/21/2024 08:10:58 07/20/2007/21/2024 CBC (INCL UDES DIFF/ PLT) absolute eosinophils 552 cells /uL 15-500 high Not Available [address], [address], 07/21/2024 08:10:58 07/20/2007/21/2024 CBC (INCL UDES DIFF/ PLT) absolute basophils 48 cells /uL 0-200 normal Not Available [address], [address], 07/21/2024 08:10:58 07/20/2007/21/2024 CBC (INCL UDES DIFF/ PLT) neutrophils 50.8 % normal Not Available [address], [address], 07/21/2024 08:10:58 07/20/2007/21/2024 CBC (INCL UDES DIFF/ PLT) lymphocytes 30.4 % normal Not Available [address], [address], 07/21/2024 08:10:58 07/20/20 24 07/21/2024 CBC (INCL UDES DIFF/ PLT) monocytes 8.8 % normal Not Available [facility] [address], [address], 07/21/2024 08:10:58 07/20/20 24 07/21/2024 CBC (INCL UDES DIFF/ PLT) eosinophils 9.2 % normal Not Available [facility] [address], [address], 07/21/2024 08:10:58 07/20/20 24 07/21/2024 CBC (INCL UDES DIFF/ PLT) basophils 0.8 % normal Not Available [facility] [address], [address], 07/21/2024 08:10:58 07/20/2007/21/2024 EMMANUELLE TIN ferritin 35 NG/mL 16-288 normal Not Available [address], [address], 07/21/2024 08:10:59 07/20/20 24 07/21/2024 T4, FREE T4, free 1.0 NG/dL 0.8-1. 8 normal Not Available [address], [address], 07/21/2024 08:11:00 07/20/20 24 07/21/2024 TSH TSH 8.89 mIU/L 0.40-4 .50 high Not Available [address], [address], 07/21/2024 08:11:01 07/20/20 24 07/21/2024 VITAM IN D,25- OH,TO RANJANA,I A vitamin [...] /MS is recom hilda d: order code 09257 (rebeka ents >2yrs ). See Note 1 Note 1 For addit ional infor cathi sierra refer to http: //[facility] gnost ics.c om/fa q/FAQ 199 (This link is being provi ded for infor consuelo ngo/ educmaddi joseph purpo ses only. ) Not Available [address], [address], 07/21/2024 08:11:02 01/07/20 25 01/08/2025 IRON, TIBC AND EMMANUELLE TIN PANEL iron, total 84 mcg/d L 45-160 normal Not Available [address], [address], 01/08/2025 04:20:21 01/07/20 25 01/08/2025 IRON, TIBC AND EMMANUELEL TIN PANEL iron binding capacity 391 mcg/d L_(ca lc) 250-45 0 normal Not Available [address], [address], 01/08/2025 04:20:21 01/07/20 25 01/08/2025 IRON, TIBC AND EMMANUELLE TIN PANEL % saturation 21 %_(ca lc) 16-45 normal Not Available [address], [address], 01/08/2025 04:20:21 01/07/20 25 01/08/2025 IRON, TIBC AND EMMANUELLE TIN PANEL ferritin 27 NG/mL 16-288 normal Not Available [address], [address], 01/08/2025 04:20:21 01/07/20 25 01/08/2025 LIPID PANEL (REFL ) cholesterol, total 221 mg/dL <200 high Not Available [address] [address] [place], [address], 01/08/2025 04:20:23 01/07/20 25 01/08/2025 LIPID PANEL (REFL ) HDL cholesterol 70 mg/dL > or = 50 normal Not Available [address] [address] [place], [address], 01/08/2025 04:20:23 01/07/20 25 01/08/2025 LIPID PANEL (REFL ) triglyceride s 175 mg/dL <150 high Not Available [address] [address] [place], [address], 01/08/2025 04:20:23 01/07/20 25 01/08/2025 LIPID PANEL (REFL ) LDL-choleste rol 122 mg/dL _(antolin c) high Refer ence range : <100 Mejia able range <100 mg/dL for prima ry preve ntion ; <70 mg/dL for patie nts with CHD or diabe tic patie nts with > or = 2 CHD risk facto rs. LDL-C is now calcu lated using the Amy [facility] calcu bryant n, which is a valid ated novel toddo d becky garcíate r accur acy than the Fried remy equat ion in the estim ation of LDL-C . Amy wood SS et al. MILADY. 2013; 310(1 9): 2061- 2068 (http ://ed ucati on.Qu Miguelina FitWithMes. com/f aq/FA Q164) Not Available [facility] [address] [address] [place], [address], 01/08/2025 04:20:23 01/07/20 25 01/08/2025 LIPID PANEL (REFL ) chol/HDLC ratio 3.2 (calc ) <5.0 normal Not Available [address] [address] [place], [address], 01/08/2025 04:20:23 01/07/2001/08/2025 LIPID PANEL (REFL ) non HDL cholesterol 151 mg/dL _(antolin c) <130 high For patie nts with diabe darcie plus 1 major ASCVD risk facto r, treat ing to a non-H DL-C goal of <100 mg/dL (LDL- C of <70 mg/dL ) is consi rudi rivero optio n. Not Available [address], [address], 01/08/2025 04:20:23 01/07/2001/08/2025 TSH+F REE T4 TSH 9.10 mIU/L 0.40-4 .50 high Not Available [address], [address], 01/08/2025 04:20:24 01/07/2001/08/2025 TSH+F REE T4 T4, free 1.3 NG/dL 0.8-1. 8 normal Not Available [address], [address], 01/08/2025 04:20:24 01/07/2001/08/2025 CBC (INCL UDES DIFF/ PLT) white blood cell count 7.2 thous and/u L 3.8-10 .8 normal Not Available [address], [address], 01/08/2025 04:20:25 01/07/20 25 01/08/2025 CBC (INCL UDES DIFF/ PLT) red blood cell count 5.31 maria teresa on/uL 3.80-5 .10 high Not Available [address], [address], 01/08/2025 04:20:25 01/07/20 25 01/08/2025 CBC (INCL UDES DIFF/ PLT) hemoglobin 16.2 g/dL 11.7-1 5.5 high Not Available [address], [address], 01/08/2025 04:20:25 01/07/2001/08/2025 CBC (INCL UDES DIFF/ PLT) hematocrit 50.3 % 35.0-4 5.0 high Not Available [address], [address], 01/08/2025 04:20:25 01/07/2001/08/2025 CBC (INCL UDES DIFF/ PLT) MCV 94.7 fL 80.0-1 00.0 normal Not Available [address], [address], 01/08/2025 04:20:25 01/07/2001/08/2025 CBC (INCL UDES DIFF/ PLT) MCH 30.5 pg 27.0-3 3.0 normal Not Available [address], [address], 01/08/2025 04:20:25 01/07/2001/08/2025 CBC (INCL UDES DIFF/ PLT) MCHC 32.2 g/dL 32.0-3 6.0 normal For adult s, a sligh t decre ase in the calcu lated MCHC value (in the range of 30 to 32 g/dL) is most likel y not clini ayush signi tali t; wendy er, it shoul d be inter prete d with cauti on in corre lat n with other red cell alexus eters and the patie nt's clini antolin condi tion. Not Available [address], [address], 01/08/2025 04:20:25 01/07/2001/08/2025 CBC (INCL UDES DIFF/ PLT) RDW 12.9 % 11.0-1 5.0 normal Not Available [address] [place], [address], 01/08/2025 04:20:25 01/07/2001/08/2025 CBC (INCL UDES DIFF/ PLT) platelet count 272 thous and/u L 140-40 0 normal Not Available [address], [address], 01/08/2025 04:20:25 01/07/2001/08/2025 CBC (INCL UDES DIFF/ PLT) MPV 11.4 fL 7.5-12 .5 normal Not Available [address], [address], 01/08/2025 04:20:25 01/07/2001/08/2025 CBC (INCL UDES DIFF/ PLT) absolute neutrophils 4558 cells /uL 1500-7 800 normal Not Available [address], [address], 01/08/2025 04:20:25 01/07/20 25 01/08/2025 CBC (INCL UDES DIFF/ PLT) absolute lymphocytes 1750 cells /uL 850-39 00 normal Not Available [address], [address], 01/08/2025 04:20:25 01/07/2001/08/2025 CBC (INCL UDES DIFF/ PLT) absolute monocytes 526 cells /uL 200-95 0 normal Not Available [address], [address], 01/08/2025 04:20:25 01/07/2001/08/2025 CBC (INCL UDES DIFF/ PLT) absolute eosinophils 310 cells /uL 15-500 normal Not Available [address], [address], 01/08/2025 04:20:25 01/07/20 25 01/08/2025 CBC (INCL UDES DIFF/ PLT) absolute basophils 58 cells /uL 0-200 normal Not Available [address], [address], 01/08/2025 04:20:25 01/07/20 25 01/08/2025 CBC (INCL UDES DIFF/ PLT) neutrophils 63.3 % normal Not Available [address], [address], 01/08/2025 04:20:25 01/07/20 25 01/08/2025 CBC (INCL UDES DIFF/ PLT) lymphocytes 24.3 % normal Not Available [address], [address], 01/08/2025 04:20:25 01/07/20 25 01/08/2025 CBC (INCL UDES DIFF/ PLT) monocytes 7.3 % normal Not Available [address], [address], 01/08/2025 04:20:25 01/07/20 25 01/08/2025 CBC (INCL UDES DIFF/ PLT) eosinophils 4.3 % normal Not Available [address], [address], 01/08/2025 04:20:25 01/07/20 25 01/08/2025 CBC (INCL UDES DIFF/ PLT) basophils 0.8 % normal Not Available [address], [address], 01/08/2025 04:20:25 07/11/20 25 07/12/2025 BASIC METAB OLIC PANEL glucose 94 mg/dL 65-99 normal Fasti ng refer ence inter ivette Not Available [address], [address], 07/12/2025 09:47:29 07/11/20 25 07/12/2025 BASIC METAB OLIC PANEL urea nitrogen (BUN) 19 mg/dL 7-25 normal Not Available [address] [address] [place], [address], 07/12/2025 09:47:29 07/11/2007/12/2025 BASIC METAB OLIC PANEL creatinine 0.69 mg/dL 0.50-1 .05 normal Not Available [address] [address] [place], [address], 07/12/2025 09:47:29 07/11/2007/12/2025 BASIC METAB OLIC PANEL eGFR 94 mL/mi n/1.7 3m2 > or = 60 normal Not Available [address] [address] [place], [address], 07/12/2025 09:47:29 07/11/2007/12/2025 BASIC METAB OLIC PANEL BUN/creatini ne ratio SEE NOTE: (calc ) 6-22 Not Repor nel: BUN and Creat inine are withi n refer ence range . Not Available [address] [address] [place], [address], 07/12/2025 09:47:29 07/11/2007/12/2025 BASIC METAB OLIC PANEL sodium 138 mmol/ L 135-14 6 normal Not Available [address] [address] [place], [address], 07/12/2025 09:47:29 07/11/2007/12/2025 BASIC METAB OLIC PANEL potassium 4.2 mmol/ L 3.5-5. 3 normal Not Available [facility] [address] [address] [place], [address], 07/12/2025 09:47:29 07/11/2007/12/2025 BASIC METAB OLIC PANEL chloride 96 mmol/ L 98-110 low Not Available [facility] [address] [address] [place], [address], 07/12/2025 09:47:29 07/11/20 25 07/12/2025 BASIC METAB OLIC PANEL carbon dioxide 32 mmol/ L 20-32 normal Not Available [address], [address], 07/12/2025 09:47:29 07/11/20 25 07/12/2025 BASIC METAB OLIC PANEL calcium 9.9 mg/dL 8.6-10 .4 normal Not Available [address], [address], 07/12/2025 09:47:29 07/11/20 25 07/12/2025 T4 (THYR OXINE ), TOTAL T4 (thyroxine), total 7.4 mcg/d L 5.1-11 .9 normal Not Available [address], [address], 07/12/2025 09:47:30 07/11/20 25 07/12/2025 TSH TSH 2.72 mIU/L 0.40-4 .50 normal Not Available [address], [address], 07/12/2025 09:47:30 07/11/20 25 07/12/2025 T3, FREE T3, free 3.3 pg/mL 2.3-4. 2 normal Not Available [address], [address], 07/12/2025 09:47:31 03/18/20 24 03/18/2024 MAMMO , scree nathan, digit al, bilat eral No observ ation record ed. [email or web address] [address] [place], [address], 04/05/2024 10:32:49 03/18/20 24 03/18/2024 DEXA No observ ation record ed. [email or web address] [address] [place], [address], 04/05/2024 10:32:49 05/13/20 24 05/13/2024 MAMMO , diagn ostic , digit al, bilat eral No observ ation record ed. [address] [place], [address], 05/14/2024 10:44:02 05/13/20 24 05/13/2024 imagi ng/di agnos tic resul t No observ ation record ed. [address] [place], [address], 06/07/2024 15:20:22 08/15/2008/13/2025 MAMMO , scree nathan, digit al, bilat eral No observ ation record ed. [address] [place], [address], 08/15/2025 11:07:55 Result Notes None recorded. Problems Name Problem SNOMED Code Status Onset Date Resolution Date Notes Provider Name and Address Organization Details Recorded Time Neuropathy 302463852 Active Not Available [facility] 3 22:51:09 Hypothyroi dism 99323973 Active Not Available [facility] 3 22:51:09 Dysuria 92596256 Active Not Available [facility] 3 22:51:09 Cough 44545465 Active Not Available [facility] 3 22:51:09 Osteoporos is 60852566 Active Not Available [facility] 3 22:51:09 Urinary tract infectious disease 94315020 Active Not Available [facility] 3 22:51:09 Hyperlipid emia 65398329 Active 2015 Not Available [facility] 3 22:51:09 Pain of right knee joint 0205664055651 00 Active 2022 Not Available [facility] 3 22:51:09 Tear of medial meniscus of knee 026609544 Active 2022 Not Available [facility] 3 22:51:09 Tear of lateral meniscus of knee 272546497 Active 2022 Not Available [facility] 3 22:51:09 Iron deficiency anemia 04103080 Active 2022 Not Available [facility] 3 22:51:09 Acute sinusitis 90189186 Active 2022 Not Available [facility] 3 22:51:09 Allergic rhinitis 04873673 Active 2022 Magalys Gonzales MD [address], [address], [place], [address] , [place] [facility] 3 18:00:46 Anxiety 77062271 Active 2022 Maaglys Gonzales MD [address], [address], [place], [address] , [place] [facility] 3 19:24:37 Dyspnea 868896097 Active 2022 Magalys Gonzales MD [address], [address], [place], [address] , [place] [facility] [place] [facility] 3 12:39:25 Vitamin D deficiency 82957278 Active 2022 Magalys Gonzales MD [address], [address], [place], [address] , [place] [facility] 3 11:35:47 Dry eyes 767146670 Active 2023 Magalys Gonzales MD [address], [address], [place], [address] , [place] [facility] 4 15:25:36 Osteopenia 094994876 Active 2023 Magalys Gonzales MD [address], [address], [place], [address] , [place] [facility] 4 15:25:43 Mammograph y abnormal 585470101 Active 2023 RENATE Stark-C [address], [address], [place], [address] , [place] [facility] [place] [facility] 4 14:59:28 Insomnia 108154740 Active 2023 CHARLIE Stark [address], [address], [place], [address] , [employer] 4 15:00:02 Essential hypertensi on 40358458 Active 2023 Schwartzmaddi Woodardmaddi robins, [facility] 4 09:54:19 Rib pain 859892650 Active 2024 CHARLIE Stark [address], [address], [place], [address] , [facility] 5 15:16:29 Impairment of balance 611565071 Active 2024 CHARLIE Stark [address], [address], [place], [address] , [employer] 5 15:16:37 Problem of low back 187287535 Active 2024 CHARLIE Stark [address], [place], [address] , [facility] 5 11:06:49 Notes:Some problems listed i n Documents: #[id number], #[id number], #[id number] could not be added to this patient's chart. Please review these documents and add these problems to the patient's chart manually as needed. Problem Notes None recorded. Procedures Surgical History Date Name Laterality Status Provider Name and Address Organization Details Recorded Time 4 Medicare Wellness CPT Code, subsequent completed Haydee Sun RN [facility] [employer] 12/23/2023 14:59:59 4 Medicare Wellness CPT Code, Initial completed Abby Fairbanks RN [place] [employer] 11/20/2023 15:21:07 3 Ortho - Cortisone Injection completed Sundeep James MD [address], [address], [place], [address], [facility] 12/03/2022 15:40:10 3 Date of Last Mammogram completed Nathaly Ruiz [employer] [address], [place], [address], [place] [facility] [employer] 05/03/2024 14:41:20 Knee completed Ansley Mckay MA [facility] [employer] [facility] 01/06/2025 15:11:04 Imaging Results None recorded. Procedure Notes None recorded. Medical Equipment None Reported. Allergies Allergen ID Allergen Name Allergen Category Reaction Reaction Severity Criticality Documentation Date Start Date Code Code System Note Provider Name and Address Organization Details Recorded Time 22715 Xiidra medicatio n rash moderate Not available 11/20/2022 74915 36 RxNorm blist ered chest Not Available [facility] 3 06:20:28 52360 tetracycl ine medicatio n nausea Not available Not available 11/20/2022 25433 RxNorm Not Available [facility] 3 06:20:28 59572 Product containin g 3-hydroxy -3-methyl glutaryl- coenzyme A reductase inhibitor (product) medicatio n Not available Not available Not available 11/20/2022 67368 009 SNOMED Not Available [facility] 3 06:20:29 34142 pravastat in medicatio n myalgias (muscle pain) Not available Not available 11/20/2022 28104 RxNorm Not Available [facility] 3 06:20:29 68306 Lipitor medicatio n myalgias (muscle pain) Not available Not available 11/20/2022 17968 5 RxNorm Not Available [facility] 3 06:20:29 63947 Levaquin medicatio n diarrhea Not available Not available 11/20/2022 87923 2 RxNorm Not Available [facility] 3 06:20:29 02903 erythromy nolberto medicatio n nausea Not available Not available 11/20/2022 4053 RxNorm can take zpack Not Available [facility] 3 06:20:29 07282 Cymbalta medicatio n Not available Not available Not available 11/20/2022 20532 4 RxNorm depre ssion Not Available [facility] 3 06:20:29 56641 Celebrex medicatio n diarrhea Not available Not available 11/20/2022 84865 7 RxNorm Not Available [facility] 3 06:20:29 32531 cefdinir medicatio n Not available Not available Not available 11/20/2022 27297 RxNorm fishy disch arge Not Available [facility] 3 06:20:29 10687 Bextra medicatio n diarrhea Not available Not available 11/20/2022 51666 0 RxNorm Not Available [facility] 3 06:20:29 60851 Avelox medicatio n nausea Not available Not available 11/20/2022 39224 6 RxNorm Not Available [facility] 3 06:20:30 58389 amitripty line medicatio n Not available Not available Not available 11/20/2022 704 RxNorm depre ssion Not Available [facility] 3 06:20:30 80181 denosumab -bbdz medicatio n muscle cramps moderate unabletoasse 07/11/2025 29047 82 RxNorm RENATE Stark-Anuj [address] [facility], [facility] [address], [place], [address] [place] [address] - [facility] 5 15:24:36 40534 valdecoxi b medicatio n diarrhea nausea Not available Not available Not available 08/10/20252016 32481 7 RxNorm Not Available [facility] - [employer] - prod 5 11:14:12 98436 celecoxib medicatio n diarrhea nausea Not available Not available Not available 08/10/20252016 39960 7 RxNorm Not Available [facility] [employer] - prod 5 11:14:12 36044 atorvasta tin calcium medicatio n other Not available Not available 08/10/20252016 80342 RxNorm musc le pain Not Available [facility] [employer] - prod 5 11:14:12 75534 alendrona te sodium medicatio n other Not available low 08/10/20252023 88962 2 RxNorm Not Available [facility] - [employer] - prod 5 11:16:30 25106 duloxetin e medicatio n anxiety other Not available Not available low 08/10/20252016 61667 RxNorm depr essio n unrec ogniz ed react ion (text : Unkno wn, code: [id number] [id number]) (from exter nal sourc e) Not Available [facility] - [employer] - prod 5 11:16:30 88456 ferrous sulfate medicatio n swelling Not available high 08/10/20252022 54844 RxNorm Not Available [facility] - [employer] - prod 11:16:30 40679 levothyro xine sodium medicatio n nausea other Not available Not available low 08/10/20252021 51789 RxNorm unrec ogniz ed react ion (text : Stoma ch upset , code: [id number]) (from exter nal sourc e) Not Available [facility] - [employer] - prod 11:16:30 64531 atorvasta tin medicatio n myalgias (muscle pain) Not available high 08/10/20252022 04945 RxNorm Not Available [facility] [employer] - prod 11:16:30 69863 moxifloxa nolberto hydrochlo ride medicatio n nausea Not available low 08/10/20252016 64028 0 RxNorm Not Available [facility] - [employer] - prod 5 11:16:[address] medicatio n Not available Not available high 08/10/20252022 47924 20 RxNorm unrec ogniz ed react ion (text : Blist ers, code: 21791 7009) (from exter nal sourc e) Not Available [employer] - prod 5 11:16:30 55326 moxifloxa nolberto medicatio n Not available Not available Not available 08/10/2025 92901 2 RxNorm Not Available [facility] - [employer] - prod 5 11:18:19 55531 levofloxa nolberto medicatio n Not available Not available Not available 08/10/2025 68533 RxNorm Not Available [facility] External Data Service - [facility] 5 11:18:19 54405 lovastati n medicatio n Not available Not available Not available 08/10/2025 6472 RxNorm Not Available [facility] External Data Service - [facility] 5 11:18:19 Medications Name Sig Start Date Stop Date Status Note LastModified by Organization Details LastModified Time cyclobenz aprine 10 mg tablet 11/25 completed Not Available Not Available Not Available furosemid e 40 mg tablet 1 tab po qday prn active Not Available Not Available No t Available [place] Thyroid 60 mg tablet TAKE 1 TABLET DAILY 05/17 completed Not Available Not Available Not Available azelastin e 0.05 % eye drops active Not Available Not Available No t Available prednison e 10 mg tablet 12/11 completed Not Available Not Available Not Available bumetanid e 2 mg tablet TAKE 1 TABLET BY MOUTH EVERY DAY active Not Available Not Available No t [...] Not Available benzonata te 200 mg capsule TAKE 1 CAPSULE BY MOUTH THREE TIMES DAILY 01/06 completed Not Available Not Available Not Available doxepin 25 mg capsule TAKE 2 CAPSULE BY MOUTH EVERY NIGHT AT BEDTIME active Not Available Not Available No t Available hydrocodo ne 5 mg-acetam inophen 325 mg tablet 06/04 completed Not Available Not Available Not Available prednison e 20 mg tablet TAKE 2 TABLETS BY MOUTH DAILY FOR 5 DAYS 01/06 completed Not Available Not Available Not Available Maxidex 0.1 % eye drops,jesus pension INSTILL 1 DROP INTO AFFECTED EYE(S) BY OPHTHALM IC ROUTE 4 TIMES PER DAY 12/03 completed Not Available Not Available Not Available alendrona te 70 mg tablet Take 1 tablet every week by oral route for 28 days. 06/04 completed Not Available Not Available Not Available clonazepa m 0.5 mg tablet TAKE 1 TABLET BY MOUTH DAILY NEEDED active Not Available Not Available No t [...] completed Not Available Not Available Not Available Bergen Thyroid 15 mg tablet TAKE ONE TABLET BY MOUTH DAILY WITH 30 MG TAB 05/30 completed Not Available Not Available Not Available Lacrisert 5 mg eye inserts 01/06 completed Not Available Not Available Not Available amoxicill in 875 mg tablet Take 1 tablet every 12 hours by oral route for 7 days. 04/05 completed Not Available Not Available Not Available prednisol one acetate 1 % eye drops,jesus pension 05/11 completed Not Available Not Available Not Available triamcino lone acetonide 0.1 % dental paste APPLY WITH SWAB TO DENTAL AREA 3 TO 4 TIMES DAILY NEEDED FOR PAIN active Not Available Not Available No t Available trazodone 100 mg tablet TAKE 1 OR 2 TABLETS BY MOUTH AT BEDTIME active Not Available Not Available No t Available ciproflox acin 0.3 % eye drops 12/03 completed Not Available Not Available Not Available Kenalog 10 mg/mL suspensio n for injection Take 20 mg by injectio n route. 12/11 completed [facility]: [phone] 4-20 Not Available Not Available Not Available diazepam 2 mg tablet TAKE ONE TABLET BY MOUTH THREE TIMES a DAY NEEDED 06/24 completed Not Available Not Available Not Available benzonata te 100 mg capsule TAKE 1 CAPSULE BY MOUTH THREE TIMES DAILY NEEDED FOR COUGH 01/06 completed Not Available Not Available Not Available [...] lone acetonide 55 mcg nasal spray aerosol Byram 2 sprays every day by intranas al route. 02/13 completed Not Available Not Available Not Available polymyxin B sulfate 10,000 unit-trim ethoprim 1 mg/mL eye drops 01/06 completed Not Available Not Available Not Available monteluka st 10 mg tablet 1 po q day 2024 active Not Available Not Available Not Avai lable zolpidem 5 mg tablet active Not Available Not Available Not Available Bergen Thyroid 30 mg tablet TAKE 1 TABLET BY MOUTH EVERY DAY IN THE MORNING active Not Available Not Available No t Available zaleplon 5 mg capsule 1-2 po qhs prn 05/15 completed Not Available Not Available Not Available azelastin e 137 mcg (0.1 %) nasal spray 2 sprays IEN twice daily 2024 active Not Available Not Available Not Avai lable diazepam 10 mg tablet Take 1 tablet 3 times a day by oral route. 2024 active Not Available Not Available Not Avai lable zolpidem 10 mg tablet 1 po qhs prn insomnia 01/06 completed Not Available Not Available Not Available methylpre dnisolone 4 mg tablets in [...] sulfate HFA 90 mcg/actua tion aerosol inhaler INHALE 2 PUFFS BY MOUTH EVERY 4 HOURS NEEDED active Not Available Not Available No t Available cefdinir 300 mg capsule 06/03 completed Not Available Not Available Not Available fluticaso ne propionat e 50 mcg/actua tion nasal spray,jesus pension USE 2 SPRAYS IN EACH NOSTRIL 1 TIME DAILY active Not Available Not Available No t Available amoxicill in 875 mg-potass ium clavulana te 125 mg tablet Take 1 tablet every 12 hours by oral route for 7 days. 01/06 completed Not Available Not Available Not Available neomycin 3.5 mg/g-poly myxin B 10,000 unit/g-de xameth 0.1 % eye oint 09/02 completed Not Available Not Available Not Available Estrace 0.01% (0.1 mg/gram) vaginal cream INSERT 1 GRAM VAGINALL Y 2 TIMES A WEEK 01/06 completed Not Available Not Available Not Available Restasis 0.05 % eye drops in a dropperet te 06/04 completed Not Available Not Available Not Available rosuvasta tin 10 mg tablet TAKE ONE TABLET BY MOUTH THREE TIMES PER WEEK (FRIDAY, Y, FRIDAY) active Not Available Not Available No t Available rosuvasta tin 20 mg tablet 12/25 completed 5 mg twice per week due to myalgia Not Available Not Available Not Available nitrofura ntoin monohydra te/macroc rystals 100 mg capsule Take 1 capsule every 12 hours by oral route for 5 days. 01/06 completed Not Available Not Available Not Available eszopiclo ne 3 mg tablet TAKE 1 TABLET BY MOUTH EVERY DAY AT BEDTIME active Not Available Not Available No t Available eszopiclo ne 2 mg tablet Take 1 tablet every day by oral route at bedtime. 01/06 completed Not Available Not Available Not Available Voltaren 05/15 completed Not Available Not [...] administ ered by the provider 05/15 completed [facility]: [phone] 6-17 Not Available Not Available Not Available CoQ-10 2018 active Not Available Not Available Not Avai lable levocetir izine 5 mg tablet TAKE 1 TABLET BY MOUTH EVERY DAY active Not Available Not Available No t [...] Available Prolia 60 mg/mL subcutane ous syringe active Not Available Not Available Not Available ropivacai ne (PF) 5 mg/mL (0.5 %) injection solution Take 20 mg by injectio n route. 12/11 completed Not Available Not Available Not Available Vascepa 1 gram capsule 2 po bid 2024 active Not Available Not Available Not Avai lable Belsomra 10 mg tablet 1 po 30 minutes before bedtime with food prn insomnia active Not Available Not Available No t Available Flonase Allergy Relief 05/15 completed Not Available Not Available Not Available Pazeo 0.7 % eye drops 10/06 completed Not Available Not Available Not Available Jubbonti 60 mg/mL subcutane ous syringe INJECT 1 ML EVERY 6 MONTHS NEEDED 07/11 completed Not Available Not Available Not Available Vitals Date Recorded Body height Body mass index (BMI) Body weight Body temperature Heart rate Oxygen saturation Systolic And Diastolic Provider Name and Address Organization Details Last Updated DateTime 4 154.94 cm 28.9 kg/m2 70725.6 3 g 98 [degF] 82 /min 96 % 146/86 mm[Hg] Archana Milton RN [facility] 4 15:09:25 Date Recorded Pain severity - 0-10 verbal numeric rating [Score] - Reported Provider Name and Address Organization Details Last Updated DateTime 11/20/2023 5 Abby Fairbanks RN [facility] 11/20/2023 15:21:36 Date Recorded Body height Body mass index (BMI) Body weight Body temperature Heart rate Oxygen saturation Systolic And Diastolic Provider Name and Address Organization Details Last Updated DateTime 4 154.94 cm 28.5 kg/m2 91019.4 5 g 97.8 [degF] 71 /min 95 % 140/76 mm[Hg] Haydee Sun RN [facility] 4 15:02:14 Date Recorded Body height Body mass index (BMI) Body weight Body temperature Heart rate Oxygen saturation Pain severity - 0-10 verbal numeric rating [Score] - Reported Systolic And Diastolic Provider Name and Address Organization Details Last Updated DateTime 5 154.94 cm 30.1 kg/m2 74251.9 8 g 97.7 [degF] 69 /min 93 % 2 130/78 mm[Hg] Ansley Mckay MA [facility] 5 15:05:23 Date Recorded Body height Body mass index (BMI) Body weight Body temperature Heart rate Systolic And Diastolic Provider Name and Address Organization Details Last Updated DateTime 4 154.94 cm 28.7 kg/m2 27106.0 4 g 98.1 [degF] 76 /min 144/86 mm[Hg] Archana Milton RN [facility] PharmMD [facility] 4 14:33:00 Date Recorded Body height Body mass index (BMI) Body weight Body temperature Heart rate Systolic And Diastolic Provider Name and Address Organization Details Last Updated DateTime 5 154.94 cm 29.7 kg/m2 06029 g 97.7 [degF] 77 /min 140/88 mm[Hg] Marcio Garcia, RMA [facility] 5 15:09:06 Social History Question Answer Notes LastModified by Organizat ion Details LastModified Time Tobacco Smoking Status Never Smoker Cat Gerber, ATC L null, [place] [facility] [employer] 12/03/2022 15:23:30 Do You Have An Advance Directive? Yes Information not available 05/03/2024 What Is Your Level Of Caffeine Consumption? Moderate Information not available 05/03/2024 In The 14 Days Before Symptom Onset, Have You Had Close Contact With A Laboratory-confir med COVID-19 While That Case Was Ill? No Information not available 01/06/2025 In The 14 Days Before Symptom Onset, Have You Had Close Contact With A Person Who Is Under Investigation For COVID-19 While That Person Was Ill? No Information not available 01/06/2025 What Type Of Diet Are You Following? REGULAR Information not available 05/03/2024 Have There Been Any Changes To Your Family Or Social Situation? No Information no t available 01/06/2025 Do You Use Insect Repellent Routinely? No Information not available 01/06/2025 Where Do You Live? SingleLevelHouse Information not available 01/06/2025 What Was The Date Of Your Most Recent Tobacco Screening? 01/06/2025 Information not available 01/06/2025 How Many Children Do You Have? 2 Information not available 01/06/2025 Do You Have Any Pets? No Information not available 01/06/2025 What Is Your Relationship Status? Information not available 05/03/2024 Do You Use Your Seat Belt Or Car Seat Routinely? Yes Information not available 01/06/2025 Do You Have Smoke And Carbon Monoxide Detectors In Your Home? Yes Information not available 01/06/2025 Are You Passively Exposed To Smoke? No Information no t available 01/06/2025 Are There Any Smokers In Your House? No Information not available 01/06/2025 Do You Participate In Social Media? Yes Information not available 01/06/2025 Do You Use Sunscreen Routinely? No Information not available 01/06/2025 Have You Recently Traveled Abroad? No Information not available 01/06/2025 Are You Currently In School? No Information not available 01/06/2025 Do You Have Any Dietary Restrictions? No Information not available 01/06/2025 Sex: Unknown Functional Status Question Answer Note LastModified by Organizat ion Details LastModified Time Do you use any illicit or recreational drugs? No Information not available 01/06/2025 Do you or have you ever used any other forms of tobacco or nicotine? No Information not available 01/06/2025 What is your level of alcohol consumption? Occasional [email or web address] Information not available 12/03/2022 Do you or have you ever used smokeless tobacco? Never used smokeless tobacco Information not available 05/03/2024 Are you currently employed? No Retired Information not available 01/06/2025 What is your exercise level? Moderate Information not available 05/03/2024 Mental Status Question Answer Note LastModified by Organization D etails LastModified Time Do you feel stressed (tense, restless, nervous, or anxious, or unable to sleep at night)? [id number] Information not available 01/06/2025 Family History Relationship Description Onset Age of this Age Resolved Age Notes LastModified by Organization Details LastModified Time Unspecified Relation Anemia [email or web address] Not available 12/03 15:23:09 Medical History Condition Response OSTEOPOROSIS Y OTHER # 1 Y HIGH CHOLESTEROL / HYPERLIPIDEMIA Y ASTHMA Y Gynecological History Statement/Question Response If Post Menopausal, Age at Menopause 53 Abnormal Pap N Date of Last Colonoscopy Date of Last Mammogram 10/18/2022 Most Recent Bone Density Date of LMP Sexually Active? Y STIs/STDs N Date of Last Pap Smear Most Recent Mammogram Current Control Method Menopause N Obstetrics History GPAL:G 2 P 2 0 0 2 Type Value Multiple Births 0 Full Term 2 Induced 0 Spontaneous 0 Premature 0 Living 2 Ectopics 0 Total 2 Immunizations Vaccine Type Date Status Note Provider Nam e and Address Organization Details Recorded Time COVID-19 mRNA, bivalent, original/Omicron BA.1, Non-US Vaccine Product, Genability 1 completed Nathaly Ruiz APRN [address], [address], [place], [address], [employer] 05/03/2024 14:40:56 Influenza, high-dose, quadrivalent, PF 3 completed Nathaly Ruiz APRN [address], [address], [place], [address], [employer] 05/03/2024 14:41:32 COVID-19, mRNA, LNP-S, PF, 30 mcg/0.3 mL dose 1 completed Nathaly Ruiz APRN [address], [address], [place], [address], [employer] 05/03/2024 14:42:09 COVID-19, mRNA, LNP-S, PF, 30 mcg/0.3 mL dose 1 charles Ruiz APRN [address], [address], [place], [address], [employer] 05/03/2024 14:42:09 COVID-19, mRNA, LNP-S, PF, 30 mcg/0.3 mL dose 1 completed Nathaly Ruiz APRN [address], [address], [place], [address], [employer] 05/03/2024 14:42:09 COVID-19, mRNA, LNP-S, bivalent, PF, 30 mcg/0.3 mL dose 2 completed Nathaly Ruiz APRN [address], [address], [place], [place], [address] [place] [address], [facility] [employer] [facility] 05/03/2024 14:42:09 COVID-19, mRNA, LNP-S, bivalent, PF, 30 mcg/0.3 mL dose 1 completed Nathaly Ruiz APRN [address], [address], [place], [address], [facility] [employer] [facility] 05/03/2024 14:42:09 COVID-19, mRNA, LNP-S, bivalent, PF, 10 mcg/0.2 mL dose 1 completed Nathaly Ruiz APRN [address], [address], [place], [place], [address] [place] [address], [facility] [employer] [facility] 05/03/2024 14:42:09 COVID-19, mRNA, LNP-S, bivalent, PF, 10 mcg/0.2 mL 2 completed Nathaly Ruiz APRN [address], [address], [place], [place], [address] [place] [address], [facility] [employer] [facility] 05/03/2024 14:42:09 COVID-19, mRNA, LNP-S, bivalent, PF, 3 mcg/0.2 mL dose 1 completed Nathaly Ruiz APRN [address], [address], [place], [place], [address] [place] [address], [facility] [employer] [facility] 05/03/2024 14:42:09 Influenza, high-dose, trivalent, PF 4 completed Not Available [facility] 07/11/2025 14:56:55 zoster recombinant 5 completed Not Available [facility] 07/11/2025 14:56:55 zoster recombinant 5 completed Not Available [facility] 07/11/2025 14:56:55 Past Encounters Encounter ID Performer Location Encounter Start Date Encounter Closed Date Diagnosis/Indication Diagnosis SNOMED-CT Code Diagnosis ICD10 Code Diagnosis IMO Codes Diagnosis Note [id number] Magalys Gonzales MD [facility] Primary [place] [address] [facility] [address] [place] [address] 05/14/2021 00:00:00 05/14/2021 13:30:04 [id number] Magalys Gonzales MD [facility] Primary Care [facility] [address] [facility] [address] [place] [address] 05/15/2022 00:00:00 05/21/2022 18:59:33 [id number] Magalys Gonzales MD [facility] Primary Care [facility] [address] [facility] [address] [place] [address] 10/15/2022 00:00:00 10/21/2022 18:33:05 [id number] Sundeep James MD [facility] [place] [address] [place] [address] 12/03/2022 14:51:36 12/03/2022 15:56:37 Pain of right knee joint 8481314540 66015 M25.561 Tear of me dial meniscus of knee 440706115 S83.241A [id number] Sundeep James MD [facility] [place] [address] [place] [address] 12/10/2022 15:08:23 12/10/2022 15:54:58 Tear of medial meniscus of knee 421606725 S83.241D Tear of la teral meniscus of knee 826798636 S83.281A [id number] Magalys Gonzales MD [facility] Primary [place] [address] [facility] [address] [place] [address] 12/11/2022 11:38:07 12/11/2022 12:34:24 Iron deficiency anemia 18079399 D50.9 remain on mvi with ironhemato logy referral givenEGD/c olonoscopy 11/27/22 no significan t findings [id number] Magalys Gonzales MD [facility] [address] [facility] [address] [place] [address] 03/20/2023 12:15:26 03/20/2023 12:47:55 Dyspnea 225797760 R06.00 Iron defic iency anemia 72615401 D50.9 remain on mvi with ironEGD/co lonoscopy 11/27/22 no significan t findingssa w hematology who wanted to observeche ck labs in 3 months [id number] Magalys Gonzales MD [facility] Primary Care [address] [place] [address] 06/24/2023 11:59:57 06/24/2023 12:42:52 Iron deficiency anemia 35054418 D50.9 remain on mvi with ironEGD/co lonoscopy 11/27/22 no significan t findingssa w hematology who wanted to observeche ck labs in 3 months update 06/24/23: Hemoglobin and iron elevated, pt symptomati cshe stopped the iron supplement and MVI 1 week agoremain off these supplement srecheck labs in 3 weeks Hyperlipidemia 02954745 E78.5 Z79.899 reviewed labscannot tolerate more than rosuvastat in 10 mg 3x per weekadd vascepa 1 gram 2 caps bid Gynecologi c examination 79196477 Z01.419 pap today Renewal of prescription 418833664 Z76.0 stable, refill given [id number] Magalys Gonzales MD [facility] Primary Care [address] [place] [address] 11/20/2023 14:59:30 11/20/2023 15:46:26 Iron deficiency anemia 80321063 D50.9 -pt has been using multivitam in with iron (labs are wnl), plans to continue-n otes being on eating plan since 2106-has already f/u with hematologi st, no diagnosis- no further tx needed, continue to monitor Acute sinusitis 09642986 J01.90 -recently sick in September, kristine resolved the issue quickly-2 weeks later, she developed another sinus infection- has f/u with ENT in the past, noted small tube drainage- congestion , pressure, neck pain noted-nasa l irrigation up to 3 times/day when she gets these issues-req zithromax, given [id number] Magalys Gonzales MD [facility] [address] [facility] [address] [place] [address] 12/23/2023 14:56:19 12/23/2023 15:48:48 Adult health examination 266113650 Z00.00 Z13.1 Pap/hpv normal 2022-may repeat in 3-5 years if desired, but further paps may not be needed due to ageMammogr am order givenCheck fasting labsDEXA repeat due-osteop eniaColono scopy 11/27/22, can repeat in 2032Flu vaccine yearlyReco mmend covid booster Screening mammography 24 838740 Z12.31 Postmenopausal state 764 46950 Z78.0 Hyperlipidemia 30390139 E78.5 Z79.899 cannot tolerate more than rosuvastat in 10 mg 3x per weekcontin ue vascepa 1 gram 2 caps bidcheck labs Hypothyroidism 56148924 E03.9 stable Iron defic iency anemia 07477677 D50.9 remain on mvi with ironEGD/co lonoscopy [...] inue mvi with ironrechec k labs Osteopenia 876707148 M85 .80 calcium + Dweight bearing exerciseDE XA ordered Vitamin D deficiency 347 90506 E55.9 Pain of ri ght knee joint 4537787231 27880 M25.561 will have right knee arthroscop y with Dr. Reyes gical clearance form given today Dry eyes 954789269 H04.1 23 will have tear duct cautery [id number] RENATE Stark-Anuj [facility] [place] [address] [facility] [address] [place] [address] 06/04/2024 14:26:58 06/04/2024 15:06:02 Hyperlipidemia 41762473 E78.5 Z79.899 cannot tolerate more than rosuvastat in 10 mg 3x per weekcontin ue vascepa 1 gram 2 caps bidcheck labs Hypothyroidism 11524795 E03.9 stable, will recheck labs as listed below. Iron defic iency anemia 27400504 D50.9 continues mvi with iron Vitamin D deficiency 347 57526 E55.9 Will check labs as listed below. Osteoporosis 64253204 M8 1.0 Did not tolerate Alendronat e.Wash on Reclast previously , will try Prolia. Insomnia 089995272 G47.0 0 Not sleeping well, maybe 3-4 hours/nigh t.Would like to try zolpidem again since it has been years since was last on it. [id number] CHARLIE Stark [facility] Primary Care [address] [place] [address] 01/06/2025 14:56:17 01/06/2025 15:37:58 Hypothyroidism 93428257 E03.9 Will check labs as listed below. Hyperlipidemia 63529898 E78.5 Z79.899 Will check labs as listed below. Iron defic iency anemia 60984429 D50.9 continues mvi with iron [id number] CHARLIE Stark [facility] Primary Care [address] [place] [address] 07/11/2025 14:55:23 07/11/2025 15:42:05 Impairment of balance 017516000 R26.89 138539 Hypothyroidism 10004742 E03.9 Osteoporosis 43288993 M8 1.0 Adverse Reaction to Jubbonti. Problem of low back 7246 78838 M53.9 [id number] Declines physical therapy at this time. Health Concerns Section Related Observation LastModified by Organization Detai ls LastModified Time None Recorded Concern Status LastModified by Organization Details LastModified Time None Recorded Advance Directives Directive Y: Payers Insurance Date Sequence Insurance Name Policy Number Policy Dai Covered Member ID Dai Member ID Guarantor Name 07/20/2025 1 [facility] (MEDICARE REPLACEMENT/A DVANTAGE - PPO) [id number] [address] [id number] Mandi Key Notes Date Note Type Note Provider Name and Address Organization Details Recorded Time 11/20/2023 text/html Pt is here for anemia f/u Harjinder Skinner, CHARLIE [address], [address], [place], [address], [employer] 11/21/2023 08:40:20 12/23/2023 text/html ROS as noted in the HPI here for wellness exam will have tear duct cautery, has [...] a new ortho. Magalys Gonzales MD [address], [address], [place], [address], [employer] 12/23/2023 19:25:58 06/04/2024 text/html ROS as noted in the HPI Patient is a 69 year old female that presents to the office for follow up. Patient did not tolerate Alendronate, caused mouth sores and random bumps on her thighs. Patient reports the bumps would come and go-did not itch or burn but were annoying. Patient is due for 6 month labs in June,. Patient is concerned about weight gain-patient reports she gained 10 pounds due to low metabolism and inability to do heavy exercise like previously. Patient is going to try HiPhenolic for weight loss. Patient denies chest pain and shortness of breath, nausea vomiting and diarrhea. CHARLIE Stark [address], [place], [address], [employer] 06/06/2024 18:19:53 01/06/2025 text/html ROS as noted in the HPI Patient is a 69 year old female that presents to the office for 6 month follow up. Patient reports she is doing well, is concerned with weight gain since stopping her thyroid medication. Patient reports healthy diet, adequate water intake and exercise. CHARLIE Stark [address], [facility] [address], [place], [address], [facility] PharmMD [facility] 01/16/2025 17:45:55 07/11/2025 text/html Patient is a 70 year old female that presents to the office for 6 month follow up. Patient reports she fell in February on her patio, landed in her flower bed. Patient did not hit head. Patient reports hitting her lower back, has had some balance difficulty since. Patient reports severe bone and joint pain after taking first dose of Jubbonti. Patient reports mouth blisters, brain fog and dizziness as well. CHARLIE Stark [address], [facility] [address], [place], [address], [employer] [facility] 07/13/2025 11:07:35 OBGyn Episode No OBEpisode recorded.
--- OUTSIDE RECORDS SUMMARY | 2025-09-07 14:52 | XMS_ITS | Clinical Summary ---
Author Organization [facility] Address [address] [place] [address] Care Team Providers Care Public Health Representative Name Role Phone Magalys Gonzales MD Primary Care Provider [phone] Source Comments [facility],non-owned Affiliates and Associated Physician Practices is amultiple site organization consisting of ambulatory clinics and hospital sitesin [place], [place], [place] and [place]. This disclosure is being madepursuant to the Care Everywhere program and may not contain all information available regarding this patient. Last updated 18.[employer] [facility] Allergies Active Allergy Reactions Criticality Noted Date [...] Valdecoxib Diarrhea,Nausea and/or Vomiting 01/21/2017 Medications * This document contains information received from the source organization and may not represent a complete record from that organization. * Be aware that medications may not be up to date on this document. Alwaysverify current medications with the patient. omeprazole (PriLOSEC) 20 MG capsule Take 1 (one) capsule by mouth once daily Active levocetirizine (Xyzal) 5 MG tablet 3 Active Magnesium Citrate 100 MG CAPS Active estriol [...] Active azelastine (Astepro) 205.5 MCG/SPRAY nasal spray [place] 2 (two) sprays into each nostril 2 times daily Active cycloSPORINE (Restasis) 0.05 % ophthalmic suspension 2 times daily Activ e penciclovir (Denavir) 1 % cream Apply to [...] morning and evening meal Active Other Active trimethoprim-p olymyxin B (Polytrim) 59899-2.1 UNIT/ML-% ophthalmic solution Instill 1 (one) drop into both eyes 4 times daily 10 mL 4 Active Active Problems Problem Noted Date Diagnosed Date Keratitis sicca, bilateral 09/10/2023 Social History Tobacco Use Types Packs/Day Years Used Date Smoking Tobacco: Never Smokeless Tobacco: Never Tobacco Cessation:Counseling Given: Not Answered Alcohol Use Standard Drinks/Week Comments Yes 0 (1 standard drink = 0.6 oz pur e alcohol) Comments Unknown Sex and Gender Information Value Date Recorded Sex Assigned at Not on file Legal Sex Female 1:39 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 Gender Identity Not on file Sexual Orientation Not on file Plan of Treatment Health Maintenance Due Date Last Done Comments BONE DENSITY TESTING 1957 CT COLONOGRAPHY - COLON CA SCREENING 1957 FIT - COLON CA SCREENING 1957 FLEX SIG - COLON CA SCREENING 1957 MAMMOGRAM 1957 HEPATITIS C SCREENING 05/03/1975 DTAP/TDAP/TD VACCINES (1 - Tdap) 1976 PNEUMOCOCCAL VACCINE 50+ (1 of 1 - PCV) 2007 ZOSTER VACCINE (1 of 2) 2007 COLOGUARD (AGES 45-75) - COL ON CA SCREENING 11/22/2022 11/23/2019 DEPRESSION SCREENING 09/22/2024 MEDICARE AWV CALENDAR YEAR 2024 COVID-19 VACCINE (1 - 2024-2 6 season) 2025 INFLUENZA VACCINE (#1) 2025 Respiratory Syncytial Virus (RSV) Vaccine Pt: or over 60 yrs (1 - 1-dose 75+ series) 2032 COLON MONITORING 11/27/2032 11/27/2022 COLONOSCOPY - COLON CA SCREENING 11/27/2032 11/28/19 Colorectal Cancer Screening 11/27/2032 HEPATITIS B VACCINE Aged Out No longe r eligible based on patient's age to complete this topic HIB VACCINE Aged Out No longer eligi ble based on patient's age to complete this topic HPV VACCINE Aged Out No longer eligi ble based on patient's age to complete this topic MENINGOCOCCAL (Group B) VACC INE SHARED DECISION-MAKING Aged Out No longer eligibl e based on patient's age to complete this topic MENINGOCOCCAL GROUPS A/C/Y/W VACCINE Aged Out No longer eligible b ased on patient's age to complete this topic Insurance Care Teams Public Health Representative Relationship Specialty Start Date End Date Magalys Gonzales MD [address] [place] [id number] PCP - General Family Medicine 09/10/23
--- OUTSIDE RECORDS SUMMARY | 2025-09-07 14:52 | XMS_ITS | Clinical Summary ---
Author Organization [facility] Address [address] [place], [address] [address] Phone Care Team Providers Care Manager Club Name Role Phone Magalys Gonzales MD Primary [...] Take by mouth. 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 file Not on [...] 2:05 PM CDT Height 156.2 cm (5' 1.5) 01/21/2017 2:05 PM CDT Body Mass Index 29.18 01/21/2017 2:05 PM CDT Plan of Treatment Health Maintenance Due Date Last Done Comments Hepatitis C Virus (HCV) Screening 1955 TdaP Immunization 1957 Cologuard 2002 Colonoscopy 2002 Colorectal Cancer Screening 2002 Immunochemical Fecal Occult Blood 2002 Pneumococcal Immunization (5 0+ years) (1 of 1 - PCV) 2007 Zoster Immunization (1 of 2) 2007 Influenza Immunization (#1) 2025 SARS-COV-2 Immunization (1 - 2023- season) 2025 Respiratory Syncytial Virus (RSV) Immunization (Adult) (1 - 1-dose 75+ series) 2032 Hepatitis B Immunization Aged Out No longer eligible based on patient's age to complete this topic Human Papillomavirus (HPV) Immunization Aged Out No longer eligible b ased on patient's age to complete this topic Meningococcal Immunization (ACWY) Aged Out No longer eligible based on patient's age to complete this topic Rotavirus Immunization Aged Out No lo nger eligible based on patient's age to complete this topic Care Teams Manager Club Relationship Specialty Start Date End Date Magalys Gonzales MD [address] [place] [address] PCP - General Family Medicine 01/21/17
--- OUTSIDE RECORDS SUMMARY | 2025-09-07 14:52 | XMS_ITS | Continuity of Care Document ---
Author Organization [place] [facility] [employer] [facility], [facility] Primary Care [place] Address [address] [place] [address] Care Team Providers Care Machinist First Class Name Role Phone IGNACIA GONZALES Primary Care Provider IGNACIA GONZALES Referring Provider [phone] Assessment No assessment recorded. Plan of Treatment Reminders Order Date Submit Date Provider Last Modified By Organization Details Last Modified Time Details Appointments Follow Up 30 2025 02:00P Rosaline Winters NP Not available Not available Not available Lab BMP, serum or plasma 2024 025 [employer] [facility], [address], [place], [address], 07/12/2025 09:47:29 T3, free, serum or plasma 2024 025 [employer] [facility], [address], [place], [address], 07/12/2025 09:47:31 T4, total, serum 2024 025 [employer] [facility], [address], [place], [address], 07/12/2025 09:47:30 TSH, serum or plasma 2024 025 [employer] [facility], [address], [place], [address], 07/12/2025 09:47:30 Referral None recorded. Procedures None recorded. Surgeries None recorded. Imaging None recorded. Medication Orders Prolia 60 mg/mL subcutane ous syringe 2024 025 [id number], [address], [place], [place], [id number], 07/11/2025 15:27:45 Patient TargetsNo targets recorded. Patient InstructionsNo instructions recorded. Reason for Referral None Reported. Results Created Date Observation Date Name Description Value Unit Range Abnormal Flag Note LastModifiedBy Organization Detail LastModifiedTime 07/11/2007/12/2025 BASIC METAB OLIC PANEL glucose 94 mg/dL 65-99 normal Fasti ng refer ence inter ivette Not Available [address], [address], 07/12/2025 09:47:29 07/11/2007/12/2025 BASIC METAB OLIC PANEL urea nitrogen (BUN) 19 mg/dL 7-25 normal Not Available [address], [address], 07/12/2025 09:47:29 07/11/2007/12/2025 BASIC METAB OLIC PANEL creatinine 0.69 mg/dL 0.50-1 .05 normal Not Available [address], [address], 07/12/2025 09:47:29 07/11/2007/12/2025 BASIC METAB OLIC PANEL eGFR 94 mL/mi n/1.7 3m2 > or = 60 normal Not Available [address], [address], 07/12/2025 09:47:29 07/11/2007/12/2025 BASIC METAB OLIC PANEL BUN/creatini ne ratio SEE NOTE: (calc ) 6-22 Not Repor nel: BUN and Creat inine are withi n refer ence range . Not Available [address], [address], 07/12/2025 09:47:29 07/11/2007/12/2025 BASIC METAB OLIC PANEL sodium 138 mmol/ L 135-14 6 normal Not Available [address], [address], 07/12/2025 09:47:29 07/11/2007/12/2025 BASIC METAB OLIC PANEL potassium 4.2 mmol/ L 3.5-5. 3 normal Not Available [address], [address], 07/12/2025 09:47:29 07/11/2007/12/2025 BASIC METAB OLIC PANEL chloride 96 mmol/ L 98-110 low Not Available [address], [address], 07/12/2025 09:47:29 07/11/2007/12/2025 BASIC METAB OLIC PANEL carbon dioxide 32 mmol/ L 20-32 normal Not Available [address], [address], 07/12/2025 09:47:29 07/11/2007/12/2025 BASIC METAB OLIC PANEL calcium 9.9 mg/dL 8.6-10 .4 normal Not Available [address], [address], 07/12/2025 09:47:29 07/11/2007/12/2025 T4 (THYR OXINE ), TOTAL T4 (thyroxine), total 7.4 mcg/d L 5.1-11 .9 normal Not Available [address], [address], 07/12/2025 09:47:30 07/11/20 25 07/12/2025 TSH TSH 2.72 mIU/L 0.40-4 .50 normal Not Available [employer] [facility] [address], [place], [address], 07/12/2025 09:47:30 07/11/2007/12/2025 T3, FREE T3, free 3.3 pg/mL 2.3-4. 2 normal Not Available [employer] [facility] [address], [place], [address], 07/12/2025 09:47:31 08/15/2008/13/2025 MAMMO , scree nathan, digit al, bilat eral No observ ation record ed. [address], [place], [address], 08/15/2025 11:07:55 Result Notes None recorded. Problems Name Problem SNOMED Code Status Onset Date Resolution Date Notes Provider Name and Address Organization Details Recorded Time Neuropathy 153066624 Active Not Available [facility] 3 22:51:09 Hypothyroi dism 90701410 Active Not Available [facility] 3 22:51:09 Dysuria 22974154 Active Not Available [facility] 3 22:51:09 Cough 78807219 Active Not Available [facility] 3 22:51:09 Osteoporos is 79520894 Active Not Available [facility] 3 22:51:09 Urinary tract infectious disease 93085724 Active Not Available [facility] 3 22:51:09 Hyperlipid emia 11804853 Active 2015 Not Available [facility] 3 22:51:09 Pain of right knee joint 9216237258710 00 Active 2022 Not Available [facility] 3 22:51:09 Tear of medial meniscus of knee 300437962 Active 2022 Not Available [facility] 3 22:51:09 Tear of lateral meniscus of knee 528208493 Active 2022 Not Available [facility] 3 22:51:09 Iron deficiency anemia 11933721 Active 2022 Not Available [facility] 3 22:51:09 Acute sinusitis 08289605 Active 2022 Not Available [facility] 3 22:51:09 Allergic rhinitis 37582481 Active 2022 Ignacia Gonzales MD [address], [address], [place], [address] , [place] [facility] 3 18:00:46 Anxiety 22954067 Active 2022 Ignacia Gonzales MD [address], [address], [place], [address] , [place] [facility] 3 19:24:37 Dyspnea 115191028 Active 2022 Ignacia Gonzales MD [address], [address], [place], [address] , [place] [facility] 3 12:39:25 Vitamin D deficiency 06047733 Active 2022 Ignacia Gonzales MD [address], [address], [place], [address] , [place] [facility] 3 11:35:47 Dry eyes 162291695 Active 2023 Ignacia Gonzales MD [address], [address], [place], [address] , [place] [facility] 4 15:25:36 Osteopenia 954161420 Active 2023 Ignacia Gonzales MD [address], [address], [place], [address] , [place] [facility] 4 15:25:43 Mammograph y abnormal 173744156 Active 2023 CHARLIE Stark [address], [address], [place], [address] , [place] [facility] 4 14:59:28 Insomnia 471923837 Active 2023 CHARLIE Stark [address], [address], [place], [address] , [facility] [employer] [facility] 4 15:00:02 Essential hypertensi on 51890551 Active 2023 [facility] [employer] [facility] 4 09:54:19 Rib pain 647948211 Active 2024 RENATE Stark-Anuj [address], [address], [place], [address] , [facility] [employer] [facility] 5 15:16:29 Impairment of balance 910615601 Active 2024 CHARLIE Stark [address], [address], [place], [address] , [facility] [employer] [facility] 5 15:16:37 Problem of low back 518788301 Active 2024 CHARLIE Stark [address], [place], [address] , [facility] [employer] [facility] 5 11:06:49 Notes:Some problems listed i n Documents: #[id number], #[id number], #[id number] could not be added to this patient's chart. Please review these documents and add these problems to the patient's chart manually as needed. Problem Notes None recorded. Procedures Surgical History Date Name Laterality Status Provider Name and Address Organization Details Recorded Time 4 Medicare Wellness CPT Code, subsequent completed Haydee Sun RN [facility] [employer] [facility] 12/23/2023 14:59:59 4 Medicare Wellness CPT Code, Initial completed December XIN Fairbanks [facility] [employer] [facility] 11/20/2023 15:21:07 3 Ortho - Cortisone Injection completed Sundeep James MD [address], [address], [place], [address], [facility] [employer] [facility] 12/03/2022 15:40:10 3 Date of Last Mammogram completed Nathaly Ruiz APRN [address], [address], [place], [address], [facility] [employer] 05/03/2024 14:41:20 Knee completed Ansley Mckay MA [facility] [employer] [facility] 01/06/2025 15:11:04 Imaging Results None recorded. Procedure Notes None recorded. Medical Equipment None Reported. Allergies Allergen ID Allergen Name Allergen Category Reaction Reaction Severity Criticality Documentation Date Start Date Code Code System Note Provider Name and Address Organization Details Recorded Time 67716 Xiidra medicatio n rash moderate Not available 11/20/2022 52332 36 RxNorm blist ered chest Not Available [facility] 3 06:20:28 52638 tetracycl ine medicatio n nausea Not available Not available 11/20/2022 29072 RxNorm Not Available [facility] 3 06:20:28 66946 Product containin g 3-hydroxy -3-methyl glutaryl- coenzyme A reductase inhibitor (product) medicatio n Not available Not available Not available 11/20/2022 32505 009 SNOMED Not Available [facility] 3 06:20:29 84072 pravastat in medicatio n myalgias (muscle pain) Not available Not available 11/20/2022 95574 RxNorm Not Available [facility] 3 06:20:29 89810 Lipitor medicatio n myalgias (muscle pain) Not available Not available 11/20/2022 50226 5 RxNorm Not Available [facility] 3 06:20:29 91040 Levaquin medicatio n diarrhea Not available Not available 11/20/2022 33014 2 RxNorm Not Available [facility] 3 06:20:29 12378 erythromy nolberto medicatio n nausea Not available Not available 11/20/2022 4053 RxNorm can take zpack Not Available [facility] 3 06:20:29 99466 Cymbalta medicatio n Not available Not available Not available 11/20/2022 43539 4 RxNorm depre ssion Not Available [facility] 3 06:20:29 32617 Celebrex medicatio n diarrhea Not available Not available 11/20/2022 33871 7 RxNorm Not Available [facility] 3 06:20:29 35413 cefdinir medicatio n Not available Not available Not available 11/20/2022 11820 RxNorm fishy disch arge Not Available [facility] 3 06:20:29 32634 Bextra medicatio n diarrhea Not available Not available 11/20/2022 50806 0 RxNorm Not Available [facility] 3 06:20:29 19584 Avelox medicatio n nausea Not available Not available 11/20/2022 79660 6 RxNorm Not Available [facility] 3 06:20:30 61103 amitripty line medicatio n Not available Not available Not available 11/20/2022 704 RxNorm depre ssion Not Available [facility] 3 06:20:30 47724 denosumab -bbdz medicatio n muscle cramps moderate unabletoasse 07/11/2025 45323 82 RxNorm CHARLIE Stark [address] [place] [address], [address], [place], [address] [place] [address] - [facility] 5 15:24:36 04170 valdecoxi b medicatio n diarrhea nausea Not available Not available Not available 08/10/20252016 03614 7 RxNorm Not Available [employer] - prod 5 11:14:12 28161 celecoxib medicatio n diarrhea nausea Not available Not available Not available 08/10/20252016 04662 7 RxNorm Not Available [employer] - prod 5 11:14:12 16172 atorvasta tin calcium medicatio n other Not available Not available 08/10/20252016 45279 RxNorm musc le pain Not Available [employer] - prod 5 11:14:12 76113 alendrona te sodium medicatio n other Not available low 08/10/20252023 13183 2 RxNorm Not Available [employer] - prod 5 11:16:30 20503 duloxetin e medicatio n anxiety other Not available Not available low 08/10/20252016 38736 RxNorm depr essio n unrec ogniz ed react ion (text : Unkno wn, code: 99614 [id number]) (from exter nal sourc e) Not Available [employer] - prod 11:16:30 17436 ferrous sulfate medicatio n swelling Not available high 08/10/20252022 59041 RxNorm Not Available [employer] - prod 11:16:30 45321 levothyro xine sodium medicatio n nausea other Not available Not available low 08/10/20252021 67714 RxNorm unrec ogniz ed react ion (text : Stoma ch upset , code: 31607 [id number]) (from exter nal sourc e) Not Available [employer] - prod 11:16:30 52423 atorvasta tin medicatio n myalgias (muscle pain) Not available high 08/10/20252022 99705 RxNorm Not Available [employer] - prod 11:16:30 28693 moxifloxa nolberto hydrochlo ride medicatio n nausea Not available low 08/10/20252016 14871 0 RxNorm Not Available [facility] [employer] - prod 11:16:[address] medicatio n Not available Not available high 08/10/20252022 35683 20 RxNorm unrec ogniz ed react ion (text : Blist ers, code: 32741 7009) (from exter nal sourc e) Not Available [facility] [employer] - prod 11:16:30 11176 moxifloxa nolberto medicatio n Not available Not available Not available 08/10/2025 42057 2 RxNorm Not Available [employer] - prod 11:18:19 36369 levofloxa nolberto medicatio n Not available Not available Not available 08/10/2025 24543 RxNorm Not Available [employer] - prod 5 11:18:19 31102 lovastati n medicatio n Not available Not available Not available 08/10/2025 6472 RxNorm Not Available [facility] [employer] - prod 5 11:18:19 Medications Name Sig Start Date Stop Date Status Note LastModified by Organization Details LastModified Time cyclobenz aprine 10 mg tablet 11/25 completed Not Available Not Available Not Available furosemid e 40 mg tablet 1 tab po qday prn active Not Available Not Available No t Available [place] Thyroid 60 mg tablet TAKE 1 TABLET [...] completed Not Available Not Available Not Available [place] Thyroid 15 mg tablet TAKE ONE TABLET [...] mg by injectio n route. 12/11 completed [facility]: [phone] 4-20 Not Available Not Available [...] lone acetonide 55 mcg nasal spray aerosol Two Dot 2 sprays every day by intranas al route. 02/13 completed Not Available Not Available Not Available polymyxin B sulfate 10,000 unit-trim ethoprim 1 mg/mL eye drops 01/06 completed Not Available Not Available Not Available [facility] [facility] 10 mg tablet 1 po q day 2024 active Not Available Not Available Not Avai lable zolpidem 5 mg tablet active Not Available Not Available Not Available [place] Thyroid 30 mg tablet TAKE 1 TABLET [...] administ ered by the provider 05/15 completed [facility]: [phone] 6-17 Not Available Not Available Not [...] and Address Organization Details Last Updated DateTime 154.94 cm 29.7 kg/m2 10732 g 97.7 [degF] 77 /min 140/88 mm[Hg] DAYANA Rose Picket 15:09:06 Social History Question Answer Notes LastModified by Organizat ion Details LastModified Time Tobacco Smoking Status Never Smoker Cat Gerber, ATC L null, [place] 12/03/2022 15:23:30 Do You Have An Advance [...] not available 01/06/2025 [facility] 01/06/2025 What Was The [...] anxious, or unable to sleep at night)? [id number] Information not available 01/06/2025 Family History Relationship Description Onset Age of this Age Resolved Age Notes LastModified by Organization Details LastModified Time Unspecified Relation Anemia [email or web address] Not available 12/03 15:23:09 Medical History Condition Response OSTEOPOROSIS Y OTHER # 1 Y ASTHMA Y HIGH CHOLESTEROL / HYPERLIPIDEMIA Y Gynecological History Statement/Question Response If Post [...] mRNA, bivalent, original/Omicron BA.1, Non-US Vaccine Product, OKKAM 1 completed Nathaly Ruiz APRN [address], [address], [place], [address], [facility] [employer] [facility] [employer] [facility] 05/03/2024 14:40:56 Influenza, high-dose, quadrivalent, PF 3 completed Nathaly Ruiz APRN [address], [address], [place], [address], [facility] [employer] [facility] [employer] [facility] 05/03/2024 14:41:32 COVID-19, mRNA, LNP-S, PF, 30 mcg/0.3 mL dose 1 charles Ruiz APRN [address], [address], [place], [address], [employer] [facility] [employer] [facility] 05/03/2024 14:42:09 COVID-19, mRNA, LNP-S, PF, 30 mcg/0.3 mL dose 1 completed Nathaly Ruiz APRN [address], [address], [place], [address], [facility] [employer] [facility] [employer] [facility] 05/03/2024 14:42:09 COVID-19, mRNA, LNP-S, PF, 30 mcg/0.3 mL dose 1 completed Nathaly Ruiz APRN [address], [address], [place], [address], [facility] [employer] [facility] 05/03/2024 14:42:09 COVID-19, mRNA, LNP-S, bivalent, PF, 30 mcg/0.3 mL dose 2 completed Nathaly Ruiz APRN [address], [address], [place], [address], [facility] [employer] [facility] 05/03/2024 14:42:09 COVID-19, mRNA, LNP-S, bivalent, PF, 30 mcg/0.3 mL dose 1 completed Nathaly Ruiz APRN [address], [address], [place], [address] [place] [address], [facility] [employer] [facility] 05/03/2024 14:42:09 COVID-19, mRNA, LNP-S, bivalent, PF, 10 mcg/0.2 mL dose 1 completed Nathaly Ruiz APRN [address], [address], [place], [address] [place] [address], [facility] [employer] [facility] 05/03/2024 14:42:09 COVID-19, mRNA, LNP-S, bivalent, PF, 10 mcg/0.2 mL 2 completed Nathaly Ruiz APRN [address], [address], [place], [address] [place] [address], [facility] [employer] [facility] 05/03/2024 14:42:09 COVID-19, mRNA, LNP-S, bivalent, PF, 3 mcg/0.2 mL dose 1 completed Nathaly Ruiz APRN [address], [address], [place], [address] [place] [address], [facility] [employer] [facility] 05/03/2024 14:42:09 Influenza, high-dose, trivalent, PF 4 completed Not Available [facility] 07/11/2025 14:56:55 zoster recombinant 5 completed Not Available [facility] 07/11/2025 14:56:55 zoster recombinant 5 completed Not Available [facility] 07/11/2025 14:56:55 Past Encounters Encounter ID Performer Location Encounter Start Date Encounter Closed Date Diagnosis/Indication Diagnosis SNOMED-CT Code Diagnosis ICD10 Code Diagnosis IMO Codes Diagnosis Note [id number] CHARLIE Stark [facility] Primary Care Helena shukla [address] [facility] [address] [place] [address] 07/11/2025 14:55:23 07/11/2025 15:42:05 Impairment of balance 141094415 R26.89 791551 Hypothyroidism 52526598 E03.9 Osteoporosis 03104319 M8 1.0 Adverse Reaction to Jubbonti. Problem of low back 7246 M53.9 [id number] Declines physical therapy at this time. Health Concerns Section Related Observation LastModified by Organization Detai ls LastModified Time None Recorded Concern Status LastModified by Organization Details LastModified Time None Recorded Payers Encounter Date Sequence Insurance Name Policy Number Policy Dai Covered Member ID Dai Member ID Guarantor Name 07/11/2025 1 [facility] (MEDICARE REPLACEMENT/A DVANTAGE - PPO) [id number] Mandi Key [id number] Mandi Key Notes Date Note Type Note Provider Name and Address Organization Details Recorded Time 07/11/2025 text/html Patient is a 70 year [...] fog and dizziness as well. CHARLIE Stark [address] [place] [address], [facility] [address], [place], [address], [facility] [employer] 07/13/2025 11:07:35 OBGyn Episode No OBEpisode recorded.
--- OUTSIDE RECORDS SUMMARY | 2025-09-07 14:52 | XMS_ITS | Clinical Summary ---
Author Organization [facility] [address] [facility] lto Address [address] [place] [address] Care Team Providers Care Political Advisor Name Role Phone Jaye Winters NP Primary Care Provider + [phone] Allergies Active Allergy Reactions Criticality Noted Date [...] 11/01/2022 Moxifloxacin Hcl Nausea only Low 01/21/2017 Hzplwnp-Ykj-Rpj Reductase Inhibitors Muscle pain,Other (See comments) Medium 01/21/2017 muscle pain Tetracycline Nausea And Vomiting,Nausea only Low 01/21/2017 Valdecoxib Diarrhea,Nausea And Vomiting,Nausea only Low 01/21/2017 Lifitegrast Blisters High 11/01/2022 Medications aspirin 81 mg enteric coated tablet Aspir-81 07/12/20 Active saliva substitute combo no.9 (BIOTENE DRY MOUTH ORAL RINSE MM) Active coenzyme Q10 10 mg capsule CoQ-10 07/12/20 Active multivit-min/ca lc/biotin/D3/FA (BIOTIN PLUS-CALCIUM AND VIT [...] THREE TO FOUR TIMES DAILY Active coenzyme T29-fmdesse E 100-5 mg-unit capsule Take by mouth [...] (11/01/2022): Added automatically from request for surgery [id number] Assessment & Plan (01/24/2023 11:47 AM CDT): [...] up Assessment & Plan (11/01/2022 1:29 PM MOVING VAN DRIVER): New problem with unknown prognosis. Discovered incidentally [...] 01/24/2023 Assessment & Plan (11/01/2022 1:32 PM MOVING VAN DRIVER): Chronic and controlled. Per patient initial episode [...] 023 Assessment & Plan (11/01/2022 1:31 PM MOVING VAN DRIVER): Chronic and overall well-controlled. Occasional symptoms with taking large pills or eating really dry foods. Currently on PPI daily and follows dysphagia lifestyle modifications. Will evaluate with EGD. Encounters Date Type Department Care Team Description 08/13/2025 11:08 AM MOVING VAN DRIVER - 08/13/2025 11:59 PM MOVING VAN DRIVER Hospital Encounter [facility] [address] [place] [address] Encounter for screening mammogram for malignant neoplasm of breast Discharge Disposition: Discharge to home or self care from Last 3 Months Surgical History Surgery [...] on file Legal Sex Female 4:40 PM MOVING VAN DRIVER Gender Identity Female 10/13/2023 11:46 AM MOVING VAN DRIVER Sexual Orientation Straight 10/13/2023 11 :46 AM MOVING VAN DRIVER Obstetrics History Para Term AB IAB SAB Ectopic Multiple Livin g Live Births 2 2 2 Date Outcome GA Total Labor Labor/2nd/3rd Weight Sex Type Anes PTL Marysol A1 A5 Name Clin Term Term Last Filed Vital Signs Vital Sign Reading Time Taken Comments Blood Pressure 145/85 07/26/2024 12:59 PM MOVING VAN DRIVER Pulse 69 07/26/2024 12:59 PM MOVING VAN DRIVER Temperature 36.3 C (97.3 F) 01/19/2024 3:16 PM CDT Respiratory Rate 14 01/19/2024 3:16 PM CDT Oxygen Saturation 99% 01/19/2024 3:16 PM CDT Inhaled Oxygen Concentration - - Weight 70.3 kg (155 lb) 08/13/2025 11:11 AM MOVING VAN DRIVER Height 157.5 cm (5' 2) 07/26/2024 12:59 PM MOVING VAN DRIVER Body Mass Index 28.35 07/26/2024 12:59 PM MOVING VAN DRIVER Plan of Treatment Health Maintenance Due Date Last Done Comments Depression Screening 1955 Hepatitis C Screening 1955 DTaP/Tdap/Td Vaccine (1 - Tdap) 1968 Hepatitis B Screening 1975 Pneumococcal vaccine 65+ (1 of 1 - PCV) 2007 Well Visit 65+ 2022 Fall Risk Assessment 01/18/2025 01/19/2024 Covid-19 Vaccine ( season) 2025 08/27/2021, 01/18/2021, 12/25/2020 Influenza Vaccine (#1) 2025 09/02/2024 Osteoporosis Screening-Bone Density Scan 03/18/2026 03/18/2024 Breast Cancer Screening-Mammogram 08/13/2026 08/13/2025, 05/13/2024, 03/18/2024 Colon Cancer Screening-Colonoscopy 11/27/20322022 Zoster Vaccine Completed 05/18/2025, 02/02/2025 Procedures Procedure Name Priority Date/Time Associated Diagnosis Comments SCREENING MAMMOGRAM BILATERAL W ENZO Schedule Routine, Read Routine (OP Routine) 08/13/2025 11:17 AM MOVING VAN DRIVER Encounter for screening mammogram for malignant neoplasm of breast DEXA AXIAL SKELETON BONE DENSITY 1 OR MORE SITES Schedule Routine, Read Routine (OP Routine) 03/18/2024 1:21 PM CDT Asymptomatic menopausal state COLONOSCOPY 11/27/2022 7:43 AM MOVING VAN DRIVER from Last 3 Months or Most Recently Relevant to Health Maintenance Results * Screening Mammogram Bilateral W Enzo (08/13/2025 11:17 AM MOVING VAN DRIVER) Anatomical Region Laterality Modality Breast Bilateral Mammography Impressions 08/14/2025 11:36 PM MOVING VAN DRIVER Bilateral No evidence of malignancy in either breast. OVERALL BI-RADS FINAL ASSESSMENT: 2 - Benign RECOMMENDATION: Recommend bilateral annual screening mammography. Narrative 08/14/2025 11:36 PM MOVING VAN DRIVER EXAMINATION: Screening Mammogram Bilateral W Enzo: 08/13/2025 COMPARISON: Relevant prior studies available at the time of interpretation were reviewed, including the most recent mammogram on: 05/13/2024. TECHNIQUE: Mammography was performed with 2D and 3D digital breast tomosynthesis (DBT) images. CAD was utilized. BREAST PARENCHYMAL COMPOSITION: There are scattered areas of fibroglandular density. FINDINGS: There are benign calcifications in both breasts. No suspicious mass, suspicious calcifications, or architectural distortion is seen in either breast. There has been no suspicious interval change. us Jaye Winters NP IMG MAMMO PROCEDURES Final R esult * Dexa Axial Skeleton Bone Density 1 or 2 Site (03/18/2024 1:21 PM CDT) Anatomical Region Laterality Modality Body N/A Other 03/18/2024 9:38 PM CDT Narrative 03/18/2024 9:40 PM CDT EXAM DESCRIPTION: DEXA AXIAL SKELETON BONE DENSITY 1 OR MORE SITES REASON FOR STUDY: 68 y/o year old F with given history of: Asymptomatic menopausal state screening Final Application Reviewer/Model: Cortex SL (S/N [id number]) CLINICAL INFORMATION: Current height: 61.5 inches Maximum [...] at or below -2.5 (Osteoporosis). IMPRESSION: Osteoporosis. Focus REFERENCE: Bone mineral density: T-Score: Normal (T-score above or = -1.0) Low bone mass (T-score between -1.0 and -2.5) replaces the previously used term osteopenia Osteoporosis (T-score = or [...] major osteoporosis related fracture and hip fracture. According to the National Osteoporosis Foundation guidelines, postmenopausal [...] Jesus Izquierdo M.D. MF: KRISTEN Report ID: [id number] Reading Location: [place] [address] Procedure Note Jesus Izquierdo MD - 03/18/2024 EXAM DESCRIPTION: DEXA AXIAL SKELETON BONE DENSITY 1 OR MORE SITES REASON FOR STUDY: 68 y/o year old F with given history of:Asymptomatic menopausal state screening Final Application Reviewer/Model: Glad to Have You (S/N [id number]) CLINICAL INFORMATION: Current height: 61.5 inches Maximum [...] Jesus Izquierdo M.D. MF: KRISTEN Report ID: [id number] Reading Location: [id number] Magalys Gonzales MD IM DXA PROCEDURES Final Result * COLONOSCOPY (11/27/2022 7:43 AM MOVING VAN DRIVER) Anatomical Region Laterality Modality Other Narrative Procedure Note Obey Liang MD - 11/27/2022 7:43 AM CST [facility] Patient Name: Mandi Key Procedure Date: 11/27/2022 7:43 AM Date of : 1955 Admit Type: Outpatient Age: 67 Gender: Female Attending MD: Obey Liang M.D. Room: [facility] ENDOSCOPY ROOM 2 Note Status: Finalized Patient [...] by the physician, the nurse and the geophysical prospector in the endoscopy suite. Mental Status Examination: [...] scope was passed under direct vision. TheColonoscope [id number] was introduced through the anus and advanced [...] 7:43 AM Procedure Code(s): --- Professional --- 53767, Colonoscopy, flexible; with biopsy, single or multiple Diagnosis Code(s): --- Professional --- K64.8, Other hemorrhoids K63.89, Other specified diseases of intestine D50.9, Iron deficiency anemia, unspecified CPT copyright 2020 [employer]. All rights reserved. The codes documented in this report are preliminary and upon coagulating bath mixer reviewmay be revised to meet current compliance requirements. Recognized by the [employer] for promoting quality in endoscopy Obey Liang MD ENDOSCOPY PROCEDURES Final Resul t from Last 3 Months or Most Recently Relevant to Health Maintenance Insurance [employer] MEDICARE ADVANTAGE [facility] MED[facility] Address: [facility] [address] [place] [address] [employer] MEDICARE ADVANTAGE [facility] Address: [facility] [address] [place] [address] [facility] MEDICARE ADVANTAGE [facility] Address: [facility] [address] [place] [address] Advance Directives For more information, please contact: [phone] * Full Code (Latest Code Status on File) Date Activated Date Inactivated Comments 11/27/2022 7:35 AM 11/27/2022 2:25 PM Care Teams Political Advisor Relationship Specialty Start Date End Date Jaye Winters NP [address] [place] [address] PCP - General Family Medicine 08/01/25
== END 2025-09-07 13:39 | disposition home or self-care (01) ==
PROVIDERS: Emergency Provider Nurse Practitioner; PCP Nurse Practitioner Family
DX: J06.9 Acute upper respiratory infection, unspecified (principal); Z20.822 Contact with and (suspected) exposure to COVID-19; E78.00 Pure hypercholesterolemia, unspecified; F41.9 Anxiety disorder, unspecified
CPT/HCPCS: 87081; 87426; 87804; 87880; 99213; G0463